=== PATIENT | female | born 1975 | race Two or more races ===

== ENCOUNTER 2017-01-07 23:45 | Emergency (ER) | payer OTHER ==
[2017-01-08 00:50] VITALS: BP 104/50; PULSE 90; TEMP 97.9; BMI 33.4
[2017-01-08] MEDS ORDERED: OXYCODONE/APAP 5/325MG COMBO TABLET PO ONE (01:29)
[2017-01-08] MEDS ORDERED: IBUPROFEN 600 MG TABLET (FP) PO ONE ×2 (01:29→01:43)
[2017-01-08] MEDS ORDERED: OXYCODONE/APAP 5/325MG COMBO TABLET ONE (01:43)
--- NOTE | 2017-01-08 02:04 | PDOC ---
History of Present Illness - General Chief Complaint: Injury Stated Complaint: INJURY Time Seen by Provider: 01/08/17 01:11 History Source: Patient Exam Limitations: No Limitations - History of Present Illness Initial Comments: 01/08/17 01:59 41yo Female patient presents to ED c/o right shoulder pain. Patient states 3 yrs ago she sprained her shoulder and has had trouble with shoulder every since. She states while reaching for her purse in the back seat of her car she heard grinding in the right shoulder, later on that day as she was exiting her car, she slipped lost her balance and banged her shoulder against her car while trying to break her fall. She denies any other complaints at this time. Occurred: reports: yesterday Severity: reports: moderate Pain Location: reports: upper extremity Method of Injury: Yes: fall Modifying Factors: improves with: cold therapy, pain medication Associated Symptoms (Fall): denies symptoms Past History - Travel Traveled outside of the country in the last 30 days: No Close contact w/someone who was outside of country & ill: No - Past Medical History Allergies/Adverse Reactions: Allergies Allergy/AdvReac Type Severity Reaction Status Date / Time No Known Allergies Allergy Verified 01/08/17 00:46 Home Medications: Ambulatory Orders Ibuprofen [Motrin -] 600 mg PO Q6H PRN #30 tablet 01/08/17 Oxycodone HCl/Acetaminophen [Percocet 5-325 mg Tablet] 1 tab PO Q6H PRN #20 tablet MDD 4 tabs 01/08/17 - Surgical History Abdominal Surgery: Yes Appendectomy: Yes - Psycho/Social/Smoking Cessation Hx Anxiety: No Suicidal Ideation: No Smoking History: Never smoked Have you smoked in the past 12 months: No Information on smoking cessation initiated: No Hx Alcohol Use: No Drug/Substance Use Hx: No Substance Use Type: None Trauma Specific PMHX - Complaint Specific PMHX Back Injury: Yes Neck Injury: No Hx Sacro Iliac Joint Dysfunction: No Review of Systems - Review of Systems Able to Perform ROS?: Yes Is the patient limited Vietnamese proficient: No Constitutional: No: Chills, Fever Respiratory: No: Cough, Shortness of Breath Cardiac (ROS): No: Chest Pain Musculoskeletal: Yes: Joint Pain All Other Systems: Reviewed and Negative *Physical Exam - Vital Signs Last Vital Signs Temp Pulse Resp BP Pulse Ox 97.9 F 90 14 104/50 99 01/08/17 00:47 01/08/17 00:47 01/08/17 00:47 01/08/17 00:47 01/08/17 00:47 - Physical Exam General Appearance: Yes: Nourished, Appropriately Dressed, Mild Distress. No: Apparent Distress, Moderate Distress, Severe Distress Respiratory/Chest: positive: Lungs Clear, Normal Breath Sounds. negative: Chest Tender, Respiratory Distress, Accessory Muscle Use, Labored Respiration, Rapid RR, Rhonchi, Stridor, Wheezing Cardiovascular: positive: Regular Rhythm, Regular Rate. negative: Edema, JVD, Murmur Gastrointestinal/Abdominal: positive: Normal Bowel Sounds, Soft. negative: Guarding Musculoskeletal: positive: Normal Inspection. negative: CVA Tenderness Extremity: positive: Normal Capillary Refill, Normal Inspection, Tender (Right shoulder.). negative: Normal Range of Motion (Rt shoulder) Integumentary: positive: Normal Color, Dry, Warm Neurologic: positive: technical research scientist II-XII NML intact, Fully Oriented, Alert, Normal Mood/ Affect, Normal Response, Motor Strength / ED Treatment Course - RADIOLOGY Radiology Studies Ordered: Category Date Time Status SHOULDER-RIGHT [RAD] Stat Radiology 01/08/17 01:29 Ordered - Medications Given in the ED: ED Medications Discontinued Medications Generic Name Dose Route Start Last Admin Trade Name Freq PRN Reason Stop Dose Admin Ibuprofen 600 mg 01/08/17 01:29 01/08/17 01:46 Motrin - PO 01/08/17 01:30 600 mg ONCE ONE Administration Oxycodone/Acetaminophen 1 combo 01/08/17 01:29 01/08/17 01:46 Percocet 5/325 - PO 01/08/17 01:30 1 combo ONCE ONE Administration *DC/Admit/Observation/Transfer Diagnosis at time of Disposition: Sprain of right shoulder Qualifiers: Encounter type: initial encounter Shoulder sprain type: unspecified sprain Qualified Code(s): S43.401A - Unspecified sprain of right shoulder joint, initial encounter - Discharge Dispostion Disposition: HOME Condition at time of disposition: Stable Admit: No - Prescriptions Prescriptions: Ibuprofen [Motrin -] 600 mg PO Q6H PRN #30 tablet PRN Reason: Mild Pain Oxycodone HCl/Acetaminophen [Percocet 5-325 mg Tablet] 1 tab PO Q6H PRN #20 tablet MDD 4 tabs PRN Reason: Severe Pain - Referrals Referrals: Juvenal Macario MD [Staff Physician] - - Patient Instructions Printed Discharge Instructions: DI for Shoulder Sprain Additional Instructions: FOLLOW UP WITH DR. MACARIO (ORTHOPEDIC). CALL TO SCHEDULE APPOINTMENT. TAKE MEDICATIONS PRESCRIBED. DO NOT DRIVE, DRINK ALCOHOL, OR OPERATE HEAVY MACHINERY WHILE TAKING PERCOCET. APPLY COLD COMPRESS TO AFFECTED AREA EVERY 4 HOURS ON AND OFF FOR 10-15 MINS. KEEP RIGHT ARM IN SLING DIRECTED. NO LIFTING >5 LBS. Print Language: ALBANIAN - Post Discharge Activity Work/School Note: Back to Work
== END 2017-01-08 02:26 | disposition home or self-care (01) ==
LOC: JER 23:45
DX: S43.401A Unspecified sprain of right shoulder joint, initial encounter (principal); V48.4XXA Person boarding or alighting a car injured in noncollision transport accident, initial encounter; Y92.488 Other paved roadways as the place of occurrence of the external cause; Y93.89 Activity, other specified; Y99.8 Other external cause status
CPT/HCPCS: 73030-TC-RT; 99281-25

== ENCOUNTER 2018-03-17 00:05 | Emergency (ER) | payer OTHER ==
--- NOTE | 2018-03-17 00:17 | PDOC ---
History of Present Illness - General Chief Complaint: Cold Symptoms Stated Complaint: THROAT PAIN Time Seen by Provider: 03/17/18 00:13 History Source: Patient Exam Limitations: No Limitations - History of Present Illness Initial Comments: 03/17/18 01:04 Best Contact:[phone] PCP:none Pmhx:Migraines/ Chronic LBP Pshx: 2013: MLD/lumbar, Lap appendectomy Allergies:NKDA LMP: 03/01/2018 43-year-old female presents to the emergency department complaining of a sore throat and left ear pain 3 days without fever, chills, nausea/vomiting, facial pains, headache, dizziness, lightheadedness, rhinorrhea, nasal congestion, neck stiffness/pain, back pains, chest pain, shortness of breath, abdominal pains, flank pains, urinary symptoms. Past History - Past Medical History Allergies/Adverse Reactions: Allergies Allergy/AdvReac Type Severity Reaction Status Date / Time No Known Allergies Allergy Verified 03/17/18 00:16 Home Medications: Ambulatory Orders Oxycodone HCl/Acetaminophen [Percocet 5-325 mg Tablet] 1 tab PO Q6H PRN #20 tablet MDD 4 tabs 01/08/17 Amoxicillin - [Amoxicillin 875mg Tablet -] 875 mg PO BID #14 tab 03/17/18 Nortriptyline HCl [Pamelor -] 25 mg PO HS 03/17/18 - Surgical History Abdominal Surgery: Yes Appendectomy: Yes - Suicide/Smoking/Psychosocial Hx Smoking History: Never smoked Have you smoked in the past 12 months: No Information on smoking cessation initiated: No Hx Alcohol Use: No Drug/Substance Use Hx: No Substance Use Type: None Review of Systems - Review of Systems Able to Perform ROS?: Yes Comments:: 03/17/18 01:06 CONSTITUTIONAL: Absent: fever, chills, diaphoresis, generalized weakness, malaise, loss of appetite HEENT: +throat pain, left ear pain Absent: rhinorrhea, nasal congestion, throat swelling, difficulty swallowing, mouth swelling, eye pain, visual Changes CARDIOVASCULAR: Absent: chest pain, loss of consciousness, palpitations, irregular heart rate, peripheral edema RESPIRATORY: Absent: cough, shortness of breath, dyspnea with exertion, orthopnea, wheezing, stridor, hemoptysis GASTROINTESTINAL: Absent: abdominal pain, abdominal distension, nausea, vomiting, diarrhea, constipation, melena, hematochezia GENITOURINARY: Absent: dysuria, frequency, urgency, hesitancy, hematuria, flank pain, genital pain MUSCULOSKELETAL: Absent: myalgia, arthralgia, joint swelling SKIN: Absent: rash, itching, pallor Is the patient limited Romansh proficient: No *Physical Exam - Vital Signs Last Vital Signs Temp Pulse Resp BP Pulse Ox 97.3 F L 92 H 18 119/86 100 03/17/18 00:15 03/17/18 00:15 03/17/18 00:15 03/17/18 00:15 03/17/18 00:15 - Physical Exam Comments: 03/17/18 01:07 GENERAL: Well developed, well nourished. Awake and alert. No acute distress. HEENT: +Left TM/erythema and bulging Normocephalic, atraumatic. PERRLA, EOMI. No conjunctival pallor. Sclera are non- icteric. Moist mucous membranes. Oropharynx is clear. NECK: Supple. Full ROM. No JVD. Carotid pulses 2+ and symmetric, without bruits. No thyromegaly. No lymphadenopathy. CARDIOVASCULAR: Regular rate and rhythm. No murmurs, rubs, or gallops. Distal pulses are 2+ and symmetric. PULMONARY: No evidence of respiratory distress. Lungs clear to auscultation bilaterally. No wheezing, rales or rhonchi. ABDOMINAL: Soft. Non-tender. Non-distended. No rebound or guarding. No organomegaly. Normoactive bowel sounds. MUSCULOSKELETAL Normal range of motion at all joints. No bony deformities or tenderness. No CVA tenderness. EXTREMITIES: No cyanosis. No clubbing. No edema. No calf tenderness. SKIN: Warm and dry. Normal capillary refill. No rashes. No jaundice. *DC/Admit/Observation/Transfer Diagnosis at time of Disposition: Pharyngitis Qualifiers: Pharyngitis/tonsillitis etiology: unspecified etiology Qualified Code(s): J02.9 - Acute pharyngitis, unspecified LOM (left otitis media) Qualifiers: Otitis media type: unspecified Qualified Code(s): H66.92 - Otitis media, unspecified, left ear - Discharge Dispostion Disposition: HOME Condition at time of disposition: Stable Admit: No - Prescriptions Prescriptions: Amoxicillin - [Amoxicillin 875mg Tablet -] 875 mg PO BID #14 tab - Referrals Referrals: Jeronimo Parsons MD [Staff Physician] - - Patient Instructions Printed Discharge Instructions: DI for Viral Pharyngitis, Middle Ear Infection Additional Instructions: Initial to follow-up with the ENT physician/Dr. Parsons Antibiotics until completion/amoxicillin Take Tylenol Motrin as needed for pain Increase fluids Return back to the ER for severe/persistent or worsening symptoms - Post Discharge Activity
[2018-03-17 00:23] VITALS: BP 119/86; PULSE 92; TEMP 97.3; BMI 32.0
[2018-03-17] MEDS ORDERED: AMOXICILLIN 500 MG CAPSULE (FP) PO ONE (01:29)
[2018-03-17] MEDS ORDERED: AMOXICILLIN 500 MG CAPSULE (FP) ONE (01:37)
== END 2018-03-17 01:40 | disposition home or self-care (01) ==
LOC: JER 00:05
DX: J02.9 Acute pharyngitis, unspecified (principal); H66.92 Otitis media, unspecified, left ear
CPT/HCPCS: 87070; 87430; 99281-25

== ENCOUNTER 2018-06-08 11:59 | Observation (INO) | payer OTHER ==
[2018-06-08 12:06] VITALS: BMI 32.5
--- NOTE | 2018-06-08 12:50 | PDOC ---
History of Present Illness - General Chief Complaint: Pain, Acute Stated Complaint: PAIN Time Seen by Provider: 06/08/18 12:45 History Source: Patient Exam Limitations: No Limitations - History of Present Illness Initial Comments: 06/08/18 13:09 Ms. Garcia is a 43 yo F with a hx of migraines and appendectomy (2012) who presents to the emergency department with epigastric and RLQ pain with radiation to right flank for the past 1.5 weeks. She states that the pain in the epigastric region is 10/10, constant and sharp that worsens with food with associated nausea and reflux. Her RLQ pain is 10/10 sharp constant pain with radiation to the right flank with relief when she eats. Concurrently, she has been vomiting throughout the 1.5 weeks with 2 vomiting events yesterday and 1x today (denies hematemesis). Denies aggravating factors for the RLQ pain. Denies the following: dysuria, hematuria, hx of nephrolithiasis, hx of cholelithiasis, SOB, chest pain, diarrhea, and fever. Endorses being sexually active with with LMP May 18. Pmhx: migraines Shx: 2012 appendectomy, 2010 vertebral disc fusion. Medications: None Allergies: None Social hx: Denies smoking, alcohol, and substance use. OBGYN: with 1 spontaneous . States currently not . Past History - Past Medical History Allergies/Adverse Reactions: Allergies Allergy/AdvReac Type Severity Reaction Status Date / Time No Known Allergies Allergy Verified 06/08/18 12:02 Home Medications: Ambulatory Orders Oxycodone HCl/Acetaminophen [Percocet 5-325 mg Tablet] 1 tab PO Q6H PRN #20 tablet MDD 4 tabs 01/08/17 COPD: No DVT: No Dementia: No Other medical history: MIGRANES - Surgical History Abdominal Surgery: Yes Appendectomy: Yes - Immunization History Immunization Up to Date: Yes - Suicide/Smoking/Psychosocial Hx Smoking History: Never smoked Have you smoked in the past 12 months: No Hx Alcohol Use: No Drug/Substance Use Hx: No Substance Use Type: None Review of Systems - Review of Systems Constitutional: No: Chills, Diaphoresis, Fever HEENTM: No: Recent change in vision, Ear Pain, Nose Pain, Throat Pain, Mouth Pain Respiratory: No: Cough, Shortness of Breath Cardiac (ROS): No: Chest Pain, Palpitations ABD/GI: Yes: Nausea, Vomiting. No: Constipated, Diarrhea, Rectal Bleeding, Tarry Stools : Yes: Flank Pain (right). No: Burning, Dysuria, Discharge, Hematuria, Incontinence Musculoskeletal: No: Back Pain, Joint Pain Integumentary: No: Rash Neurological: No: Headache Endocrine: No: Unexplained Weight Gain *Physical Exam - Vital Signs Last Vital Signs Temp Pulse Resp BP Pulse Ox 98.1 F 113 H 16 115/83 100 06/08/18 12:02 06/08/18 12:02 06/08/18 12:02 06/08/18 12:02 06/08/18 12:02 - Physical Exam General Appearance: Yes: Nourished, Appropriately Dressed HEENT: positive: TIA, Normal Voice Respiratory/Chest: positive: Lungs Clear, Normal Breath Sounds Cardiovascular: positive: Regular Rhythm, Regular Rate, S1, S2 Vascular Pulses: Dorsalis-Pedis (R): 3+, Doralis-Pedis (L): 3+ Gastrointestinal/Abdominal: positive: Normal Bowel Sounds, Tender (Tenderness to palpation in the RUQ, RLQ and epigastric region), Other (Positive mcburney, positive rosvings, and positive murphys) Lymphatic: negative: Adenopathy Musculoskeletal: positive: CVA Tenderness (R). negative: CVA Tenderness (L) Extremity: positive: Normal Capillary Refill, Normal Inspection Integumentary: positive: Normal Color, Dry, Warm Neurologic: positive: Fully Oriented, Alert ED Treatment Course - LABORATORY CBC & Chemistry Diagram: 06/08/18 13:42 06/08/18 13:37 Medical Decision Making - Medical Decision Making 06/08/18 17:44 Ms. Garcia is a 43 yo F with a hx of an appendectomy (2012) who presents with RLQ, RUQ, and epigastric pain with associated nausea and vomiting for the past 1.5 weeks. Ddx: Nephrolithiasis, pyelonephritis, cholelithiasis, choledocholithiasis, cholecystitis, pancreatitis, GERD, gastritis, ACS r/o, colitis, small bowel obstruction, diverticulitis, ovarian torsion, ovarian cyst, ectopic Initial vitals: Initial Vital Signs Temp Pulse Resp BP Pulse Ox 98.1 F 113 H 16 115/83 100 06/08/18 12:02 06/08/18 12:02 06/08/18 12:02 06/08/18 12:02 06/08/18 12:02 Workup: Laboratory Results - last 24 hr 06/08/18 06/08/18 06/08/18 13:37 13:42 13:42 WBC 8.8 RBC 5.12 Hgb 13.8 Hct 42.2 MCV 82.4 MCH 27.1 MCHC 32.8 RDW 14.9 Plt Count 286 MPV 9.1 Absolute Neuts (auto) 5.8 Neutrophils % 66.1 Lymphocytes % 24.3 Monocytes % 8.5 Eosinophils % 0.8 Basophils % 0.3 Nucleated RBC % 0 Sodium 137 Potassium 4.2 Chloride 100 Carbon Dioxide 32 Anion Gap 5 L BUN 14 Creatinine 0.9 Creat Clearance w eGFR > 60 Random Glucose 94 Calcium 9.7 Magnesium 2.2 Total Bilirubin 0.2 AST 23 ALT 30 Alkaline Phosphatase 122 H Total Protein 8.0 Albumin 3.9 Lipase 160 Serum , Qual Negative Urine Color Urine Appearance Urine pH Ur Specific [employer] Urine Protein Urine Glucose (UA) Urine Ketones Urine Blood Urine Nitrite Urine Bilirubin Urine Urobilinogen Ur Leukocyte Esterase Urine WBC (Auto) Urine RBC (Auto) Ur Epithelial Cells Urine Mucus Blood Type Antibody Screen 06/08/18 06/08/18 13:56 15:08 WBC RBC Hgb Hct MCV MCH MCHC RDW Plt Count MPV Absolute Neuts (auto) Neutrophils % Lymphocytes % Monocytes % Eosinophils % Basophils % Nucleated RBC % Sodium Potassium Chloride Carbon Dioxide Anion Gap BUN Creatinine Creat Clearance w eGFR Random Glucose Calcium Magnesium Total Bilirubin AST ALT Alkaline Phosphatase Total Protein Albumin Lipase Serum , Qual Urine Color Ltyellow Urine Appearance Slcloudy Urine pH 7.0 Ur Specific [employer] 1.014 Urine Protein Negative Urine Glucose (UA) Negative Urine Ketones Negative Urine Blood 1+ H Urine Nitrite Negative Urine Bilirubin Negative Urine Urobilinogen 2.0 H Ur Leukocyte Esterase Negative Urine WBC (Auto) None Urine RBC (Auto) None Ur Epithelial Cells Rare Urine Mucus Rare Blood Type O POSITIVE Antibody Screen Negative CT abdomen and pelvis with contrast: Impression: Right ovarian cyst otherwise essentially normal CT scan of the abdomen and pelvis with no evidence of acute patholoy per Dr. Warren Rogers. Re-evaluation: After 20 minutes s/p 4 mg IV morphine administration, pain was reduced from 10/ 10 to 8/10. This was evaluated at 6:05 pm. Her pain is irretractable and is unsafe to go home. Disposition is to observation for serial examinations. 06/08/18 18:13 *DC/Admit/Observation/Transfer Diagnosis at time of Disposition: Right ovarian cyst Abdominal pain Qualifiers: Abdominal location: generalized Qualified Code(s): R10.84 - Generalized abdominal pain - Discharge Dispostion Decision to Admit order: Yes - Referrals Referrals: Kaleb Sapp MD [Primary Care Provider] - - Patient Instructions - Post Discharge Activity
[2018-06-08] MEDS ORDERED: SODIUM CHLORIDE 1,000 ML IV STA ×2 (13:04→18:30)
[2018-06-08] MEDS ORDERED: ONDANSETRON 4 MG/2 ML VIAL IVPUSH ONE ×2 (13:05→18:28)
[2018-06-08] MEDS ORDERED: ACETAMINOPHEN 1000 MG/100 ML VIAL (NON FORMULARY) IVPB ONE (13:06)
[2018-06-08] MEDS ORDERED: ACETAMINOPHEN INJECTION 100 ML IVPB ONE (13:24)
[2018-06-08] MEDS ORDERED: ONDANSETRON 4 MG/2 ML VIAL ONE ×2 (13:24→18:37)
--- NOTE | 2018-06-08 13:47 | PDOC ---
Attending Attestation - Resident Resident Name: Jose Morris - ED Attending Attestation I have performed the following: I have examined & evaluated the patient, The case was reviewed & discussed with the resident, I agree w/resident's findings & plan - HPI HPI: 06/08/18 13:45 43-year-old female with history of appendectomy resents with progressive right upper quadrant pain. Patient has had intermittent symptoms for about 1 month, worse with eating and associated with nausea/vomiting. The symptoms are typically go away after a few hours, but over the last 3 days has had persistent epigastric/right-sided abdominal pain with inability to tolerate by mouth, no fevers or chills. Normal bowel movements, last was this morning. No urinary complaints. No EtOH or excessive NSAID use, no known history of cholelithiasis. - Physicial Exam PE: 06/08/18 13:46 Afebrile, heart rate improved after retching resolved No jaundice or pallor Abdomen is soft but distended, tender with guarding in the right upper quadrant , no rebound. Slight right CVA tenderness, no rash, bowel sounds are normal. - Medical Decision Making 06/08/18 13:46 43-year-old female with history of intermittent epigastric/right upper quadrant pain now with persistent pain and focal peritoneal findings in the right upper quadrant. Presentation seems most consistent with biliary colic/cholecystitis, rule out pancreatitis, less likely etiology. Labs, urinalysis EKG IV fluids, antiemetics, pain control Right upper quadrant ultrasound Reassess Heart Score/ECG Review #1 ECG reviewed & interpreted by me at: 14:04 General ECG Interpretation: Sinus Rhythm, Normal Rate (78), Normal Intervals ( qtc 420), No acute ischemic changes
[2018-06-08 13:52] LABS: BASO % 0.3 % (0-2.0); EOS % 0.8 % (0-4.5); HEMATOCRIT 42.2 % (32.4-45.2); HEMOGLOBIN 13.8 GM/dL (10.7-15.3); LYMPH % 24.3 % (8-40); MCH 27.1 pg (25.7-33.7); MCHC 32.8 g/dl (32.0-36.0); MEAN CELL VOLUME 82.4 fl (80-96); MEAN PLT VOLUME 9.1 fl (7.5-11.1); MONO % 8.5 % (3.8-10.2); NEUT % 66.1 % (42.8-82.8); PLATELET COUNT 286 K/MM3 (134-434); RBC 5.12 M/mm3 (3.60-5.2); RDW 14.9 % (11.6-15.6); WHITE BLOOD COUNT 8.8 K/mm3 (4.0-10.0)
[2018-06-08 14:15] LABS: ALBUMIN 3.9 g/dl (3.4-5.0); ALK PHOS 122 U/L (45-117); ANION GAP 5 (8-16); BILIRUBIN,TOTAL 0.2 mg/dL (0.2-1.0); BLOOD UREA NITROGEN 14 mg/dL (7-18); CALCIUM 9.7 mg/dL (8.5-10.1); CHLORIDE 100 mmol/L (98-107); CO2 32 mmol/L (21-32); CREATININE 0.9 mg/dL (0.55-1.02); GLUCOSE,RANDOM 94 mg/dL (74-106); LIPASE 160 U/L (73-393); MAGNESIUM 2.2 mg/dL (1.8-2.4); POTASSIUM 4.2 mmol/L (3.5-5.1); SGOT/AST 23 U/L (15-37); SGPT/ALT 30 U/L (12-78); SODIUM 137 mmol/L (136-145)
[2018-06-08 15:19] LABS: URINE APPEARANCE SLCLOUDY; URINE BILIRUBIN NEGATIVE (<2.0 mg/dL); URINE COLOR LTYELLOW; URINE GLUCOSE (UA) NEGATIVE (NEGATIVE); URINE KETONE NEGATIVE (NEGATIVE); URINE LEUK ESTERASE NEGATIVE (NEGATIVE); URINE NITRITE NEGATIVE (NEGATIVE); URINE PROTEIN NEGATIVE (NEGATIVE)
[2018-06-08] MEDS ORDERED: morphine CARPU-JECT 4 MG/1 ML DISP.SYRIN IVPUSH ONE (15:30)
[2018-06-08 15:35] LABS: EPI CELLS RARE /HPF (FEW); URINE MUCUS RARE
[2018-06-08] MEDS ORDERED: morphine SULFATE 4 MG/ML VIAL ONE (17:08)
--- NOTE | 2018-06-08 21:12 | HP ---
Admitting History and Physical - Primary Care Physician PCP: Demetria Del Rio - Admission History of Present Illness: Ms. Garcia is a 43 yo F with a hx of migraines and appendectomy (2012) who presents to the emergency department with epigastric and RLQ pain with radiation to right flank for the past 1.5 weeks. She states that the pain in the epigastric region is 10/10, constant and sharp that worsens with food with associated nausea and reflux. Her RLQ pain is 10/10 sharp constant pain with radiation to the right flank with relief when she eats. Concurrently, she has been vomiting throughout the 1.5 weeks with 2 vomiting events yesterday and 1x today (denies hematemesis). Denies aggravating factors for the RLQ pain. Denies the following: dysuria, hematuria, hx of nephrolithiasis, hx of cholelithiasis, SOB, chest pain, diarrhea, and fever. Endorses being sexually active with with LMP May 18. - Past Medical History ...LMP: 05/18/18 - Smoking History Smoking history: Never smoked Have you smoked in the past 12 months: No - Alcohol/Substance Use Hx Alcohol Use: No Home Medications - Allergies Allergies/Adverse Reactions: Allergies Allergy/AdvReac Type Severity Reaction Status Date / Time No Known Allergies Allergy Verified 06/08/18 12:02 - Home Medications Home Medications: Ambulatory Orders Oxycodone HCl/Acetaminophen [Percocet 5-325 mg Tablet] 1 tab PO Q6H PRN #20 tablet MDD 4 tabs 01/08/17 Physical Examination Vital Signs: Vital Signs Temperature 98.1 F 06/08/18 12:02 Pulse Rate 113 H 06/08/18 12:02 Respiratory Rate 16 06/08/18 12:02 Blood Pressure 115/83 06/08/18 12:02 O2 Sat by Pulse Oximetry (%) 100 06/08/18 12:02 Constitutional: Yes: No Distress HENT: Yes: Atraumatic Neck: Yes: Supple Cardiovascular: Yes: Regular Rate and Rhythm Respiratory: Yes: CTA Bilaterally Gastrointestinal: Yes: Normal Bowel Sounds, Tenderness (Ruq) Extremities: Yes: WNL Labs: CBC, BMP 06/08/18 13:42 06/08/18 13:37 Problem List - Problems (1) Abdominal pain Assessment/Plan: prn pain meds gi and delinquency counselor on board Code(s): R10.9 - UNSPECIFIED ABDOMINAL PAIN Qualifiers: Abdominal location: generalized Qualified Code(s): R10.84 - Generalized abdominal pain (2) Right ovarian cyst Assessment/Plan: delinquency counselor consult on pain meds Code(s): N83.201 - UNSPECIFIED OVARIAN CYST, RIGHT SIDE Assessment/Plan Laboratory Tests 06/08/18 06/08/18 06/08/18 13:37 13:42 13:42 WBC 8.8 RBC 5.12 Hgb 13.8 Hct 42.2 MCV 82.4 MCH 27.1 MCHC 32.8 RDW 14.9 Plt Count 286 MPV 9.1 Absolute Neuts (auto) 5.8 Neutrophils % 66.1 Lymphocytes % 24.3 Monocytes % 8.5 Eosinophils % 0.8 Basophils % 0.3 Nucleated RBC % 0 Sodium 137 Potassium 4.2 Chloride 100 Carbon Dioxide 32 Anion Gap 5 L BUN 14 Creatinine 0.9 Creat Clearance w eGFR > 60 Random Glucose 94 Calcium 9.7 Magnesium 2.2 Total Bilirubin 0.2 AST 23 ALT 30 Alkaline Phosphatase 122 H Total Protein 8.0 Albumin 3.9 Lipase 160 Serum , Qual Negative Urine Color Urine Appearance Urine pH Ur Specific [place] Urine Protein Urine Glucose (UA) Urine Ketones Urine Blood Urine Nitrite Urine Bilirubin Urine Urobilinogen Ur Leukocyte Esterase Urine WBC (Auto) Urine RBC (Auto) Ur Epithelial Cells Urine Mucus Blood Type Antibody Screen 06/08/18 06/08/18 06/08/18 13:56 15:08 17:20 WBC RBC Hgb Hct MCV MCH MCHC RDW Plt Count MPV Absolute Neuts (auto) Neutrophils % Lymphocytes % Monocytes % Eosinophils % Basophils % Nucleated RBC % Sodium Potassium Chloride Carbon Dioxide Anion Gap BUN Creatinine Creat Clearance w eGFR Random Glucose Calcium Magnesium Total Bilirubin AST ALT Alkaline Phosphatase Total Protein Albumin Lipase Serum , Qual Urine Color Ltyellow Urine Appearance Slcloudy Urine pH 7.0 Ur Specific [place] 1.014 Urine Protein Negative Urine Glucose (UA) Negative Urine Ketones Negative Urine Blood 1+ H Urine Nitrite Negative Urine Bilirubin Negative Urine Urobilinogen 2.0 H Ur Leukocyte Esterase Negative Urine WBC (Auto) None Urine RBC (Auto) None Ur Epithelial Cells Rare Urine Mucus Rare Blood Type O POSITIVE O POSITIVE Antibody Screen Negative Active Medications Generic Name Dose Route Start Last Admin Trade Name Freq PRN Reason Stop Dose Admin Morphine Sulfate 2 mg 06/08/18 21:16 06/10/18 12:09 Morphine Sulfate IVPUSH 2 mg Q4H PRN Administration PAIN LEVEL 4 - 6
[2018-06-08] MEDS: MORPHINE SULFATE 2 MG/ML VIAL IVPUSH PRN (23:34)
[2018-06-09] MEDS: MORPHINE SULFATE 2 MG/ML VIAL IVPUSH PRN ×4 (05:06→22:21)
[2018-06-09 07:01] LABS: BASO % 0.5 % (0-2.0); EOS % 1.8 % (0-4.5); HEMATOCRIT 35.4 % (32.4-45.2); HEMOGLOBIN 11.7 GM/dL (10.7-15.3); LYMPH % 31.3 % (8-40); MCH 27.3 pg (25.7-33.7); MEAN CELL VOLUME 82.9 fl (80-96); MEAN PLT VOLUME 9.2 fl (7.5-11.1); MONO % 8.5 % (3.8-10.2); NEUT % 57.9 % (42.8-82.8); PLATELET COUNT 231 K/MM3 (134-434); RBC 4.27 M/mm3 (3.60-5.2); RDW 14.4 % (11.6-15.6); WHITE BLOOD COUNT 9.7 K/mm3 (4.0-10.0)
[2018-06-09 07:12] LABS: CHLORIDE 106 mmol/L (98-107); POTASSIUM 4.2 mmol/L (3.5-5.1); SODIUM 141 mmol/L (136-145)
[2018-06-09 07:24] LABS: ALBUMIN 3.2 g/dl (3.4-5.0); ALK PHOS 80 U/L (45-117); ANION GAP 10 (8-16); BILIRUBIN,TOTAL 0.3 mg/dL (0.2-1.0); BLOOD UREA NITROGEN 11 mg/dL (7-18); CALCIUM 8.1 mg/dL (8.5-10.1); CO2 25 mmol/L (21-32); CREATININE 0.8 mg/dL (0.55-1.02); GLUCOSE,RANDOM 80 mg/dL (74-106); SGOT/AST 17 U/L (15-37); SGPT/ALT 22 U/L (12-78); TOT PROT 6.3 g/dl (6.4-8.2)
--- NOTE | 2018-06-09 13:56 | EKG ---
Test Reason : Blood Pressure : / mmHG Vent. Rate : 077 BPM Atrial Rate : 077 BPM P-R Int : 136 ms QRS Dur : 078 ms QT Int : 372 ms P-R-T Axes : 054 081 040 degrees QTc Int : 420 ms POOR DATA QUALITY, INTERPRETATION MAY BE ADVERSELY AFFECTED NORMAL SINUS RHYTHM NORMAL ECG NO PREVIOUS ECGS AVAILABLE Confirmed by Mack Knox MD ([id number]) on 06/09/2018 1:55:55 PM Referred By: Confirmed By:Mack Knox MD
--- NOTE | 2018-06-09 18:41 | PN ---
Progress Note, Physician History of Present Illness: still ahs nause pain better - Current Medication List Current Medications: Active Medications Morphine Sulfate (Morphine Sulfate) 2 mg IVPUSH Q4H PRN PRN Reason: PAIN LEVEL 4 - 6 Last Admin: 06/09/18 18:08 Dose: 2 mg - Objective Vital Signs: Vital Signs Temperature 98.7 F 06/09/18 18:00 Pulse Rate 80 06/09/18 18:00 Respiratory Rate 20 06/09/18 18:00 Blood Pressure 139/65 06/09/18 18:00 O2 Sat by Pulse Oximetry (%) 97 06/09/18 10:00 Constitutional: Yes: No Distress HENT: Yes: Atraumatic Neck: Yes: Supple Cardiovascular: Yes: Regular Rate and Rhythm Respiratory: Yes: CTA Bilaterally Gastrointestinal: Yes: Normal Bowel Sounds Extremities: Yes: WNL Edema: No Neurological: Yes: Alert, Oriented Labs: CBC, BMP 06/09/18 05:55 06/09/18 05:55 Problem List - Problems (1) Abdominal pain Assessment/Plan: prn pain meds prn zofran for nausea Code(s): R10.9 - UNSPECIFIED ABDOMINAL PAIN Qualifiers: Abdominal location: generalized Qualified Code(s): R10.84 - Generalized abdominal pain (2) Right ovarian cyst Assessment/Plan: termite technician consult Code(s): N83.201 - UNSPECIFIED OVARIAN CYST, RIGHT SIDE
--- NOTE | 2018-06-09 19:03 | CON.GI ---
Consult Consult Specialty:: GI: For Dr. Suarez Referred by:: Dr. Del Rio Reason for Consultation:: Abdominal pain - History of Present Illness Chief Complaint: Abdominal Pain History of Present Illness: 43 F admitted for evaluation of abdominal pain. She states that she was in her usual state of health up iuntil 1.5 weeks ago when she began experiencing abdominal pain. The description of her pain is upper abdomen right upper quadrant and right lower quadrant. The pain can get worse after meals There has been no associated nausea, vomiting, fevers/chills, food fear, diarrhea, rectal bleeding, change in bowel habits. she does have chronic reflux and describes having had EGD and colonoscopy in the past that were unrevealing. Pain persists and she still requires opiate analgesia. IV contrast CT scan of the abdomen and pelvis was unrevealing aside from a right ovarian cyst. It also revealed a contracted GB ? physiologic vs. chronic cholecystitis. 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 ...LMP: 05/18/18 ...: No - Past Surgical History Past Surgical History: Yes: Appendectomy (laparoscopic) Additional Surgical History: L-Spine surgery - Alcohol/Substance Use Hx Alcohol Use: No History of Substance Use: reports: None - Smoking History Smoking history: Never smoked Have you smoked in the past 12 months: No - Social History ADL: Independent Place of : Other ([place]) History of Recent Travel: Yes ([facility]: returned 05/24) Home Medications - Allergies Allergies/Adverse Reactions: Allergies Allergy/AdvReac Type Severity Reaction Status Date / Time No Known Allergies Allergy Verified 06/08/18 12:02 - Home Medications Home Medications: Ambulatory Orders Oxycodone HCl/Acetaminophen [Percocet 5-325 mg Tablet] 1 tab PO Q6H PRN #20 tablet MDD 4 tabs 01/08/17 Family Disease History - Family Disease History Family Disease History: Other: Father (: 76: respiratory infection), Mother (Alive: DM II, hyperlipidemia), Brother (5, healthy), Sister (2, healthy), Son ( 3, healthy), Daughter (1, healthy) Review of Systems - Review of Systems Constitutional: denies: Chills, Fever Cardiovascular: denies: Chest Pain Respiratory: denies: Cough, SOB Gastrointestinal: reports: Abdominal Pain. denies: Constipation, Diarrhea, Dysphagia, Indigestion, Melena, Rectal Bleeding, Vomiting, Vomiting Blood Genitourinary: denies: Flank Pain Physical Exam-GI Vital Signs: Vital Signs Temperature 98.7 F 06/09/18 18:00 Pulse Rate 80 06/09/18 18:00 Respiratory Rate 20 06/09/18 18:00 Blood Pressure 139/65 06/09/18 18:00 O2 Sat by Pulse Oximetry (%) 97 06/09/18 10:00 Constitutional: Yes: Calm Eyes: No: Sclera Icterus Cardiovascular: Yes: Regular Rate and Rhythm Respiratory: Yes: CTA Bilaterally Gastrointestinal Inspection: Yes: Scars (Healed trochar scars) ...Auscultate: Yes: Normoactive Bowel Sounds ...Palpate: Yes: Tenderness (TTP in the RLQ > RUQ and epigastrium. Negative leonard's sign) ...Percussion: No: Tympanitic Edema: No (No LE edema) Neurological: Yes: Alert Labs: CBC, BMP 06/09/18 05:55 06/09/18 05:55 Hepatic Panel Total Bilirubin 0.3 mg/dL (0.2-1.0) 06/09/18 05:55 AST 17 U/L (15-37) 06/09/18 05:55 ALT 22 U/L (12-78) 06/09/18 05:55 Alkaline Phosphatase 80 U/L (45-117) D 06/09/18 05:55 Albumin 3.2 g/dl (3.4-5.0) L 06/09/18 05:55 Problem List - Problems (1) Abdominal pain Assessment/Plan: Ms. Ignacio abdominal and pelvic pain is migratory in nature. It can be related to meals however is now predominantly RLQ in location Advise: Changed diet to clears Ordered HIDA scan given post prandial component of the abdominal pain, if unrevealing, would consider EGD If right ovarian cyst does not explain the RLQ pain (with patient being s/p cheolecystectomy) then repeat CT scan of the abdomen and [pelvis with PO contrast. Await account assistant evaluation Code(s): R10.9 - UNSPECIFIED ABDOMINAL PAIN Qualifiers: Abdominal location: generalized Qualified Code(s): R10.84 - Generalized abdominal pain
[2018-06-10 07:13] LABS: BASO % 0.4 % (0-2.0); EOS % 1.5 % (0-4.5); HEMATOCRIT 36.3 % (32.4-45.2); HEMOGLOBIN 12.2 GM/dL (10.7-15.3); LYMPH % 28.5 % (8-40); MCH 27.7 pg (25.7-33.7); MCHC 33.6 g/dl (32.0-36.0); MEAN CELL VOLUME 82.5 fl (80-96); MEAN PLT VOLUME 9.2 fl (7.5-11.1); MONO % 9.3 % (3.8-10.2); NEUT % 60.3 % (42.8-82.8); PLATELET COUNT 235 K/MM3 (134-434); RBC 4.39 M/mm3 (3.60-5.2); RDW 14.9 % (11.6-15.6); WHITE BLOOD COUNT 9.9 K/mm3 (4.0-10.0)
[2018-06-10 07:27] LABS: ALBUMIN 3.3 g/dl (3.4-5.0); BILIRUBIN,DIRECT < 0.2 mg/dL (0.0-0.2)
[2018-06-10 07:30] LABS: ALK PHOS 94 U/L (45-117); BILIRUBIN,TOTAL 0.1 mg/dL (0.2-1.0); SGOT/AST 20 U/L (15-37); SGPT/ALT 25 U/L (12-78); TOT PROT 6.7 g/dl (6.4-8.2)
[2018-06-10] MEDS: MORPHINE SULFATE 2 MG/ML VIAL IVPUSH PRN ×3 (07:31→21:12)
--- NOTE | 2018-06-10 15:25 | CON.OBG ---
Consult Consult Specialty:: APPLIANCE SALES ASSOCIATE Reason for Consultation:: Ovarian cyst - History of Present Illness Chief Complaint: Abdominal pain History of Present Illness: Ms. Garcia is a 43 yo F with a hx of migraines and appendectomy (2012) who presents to the emergency department with epigastric and RLQ pain with radiation to right flank for the past 1.5 weeks. APPLIANCE SALES ASSOCIATE consulted due to incidental finding of right ovarian cyst by Cat Scan. LMP 05/18/18 Previous h/o back surgery. 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 ...LMP: 05/18/18 ...: No ...: 5 ...Para: 4 - Past Surgical History Past Surgical History: Yes: Appendectomy (laparoscopic) Additional Surgical History: L-Spine surgery - Alcohol/Substance Use Hx Alcohol Use: No History of Substance Use: reports: None - Smoking History Smoking history: Never smoked Have you smoked in the past 12 months: No - Social History ADL: Independent History of Recent Travel: Yes ([facility]: returned 05/24) Home Medications - Allergies Allergies/Adverse Reactions: Allergies Allergy/AdvReac Type Severity Reaction Status Date / Time No Known Allergies Allergy Verified 06/08/18 12:02 - Home Medications Home Medications: Ambulatory Orders Oxycodone HCl/Acetaminophen [Percocet 5-325 mg Tablet] 1 tab PO Q6H PRN #20 tablet MDD 4 tabs 01/08/17 Family Disease History - Family Disease History Family History: Unremarkable Family Disease History: Other: Father (: 76: respiratory infection), Mother (Alive: DM II, hyperlipidemia), Brother (5, healthy), Sister (2, healthy), Son ( 3, healthy), Daughter (1, healthy) Review of Systems - Review of Systems HENT: reports: Other (Headache) Neck: reports: No Symptoms Cardiovascular: reports: No Symptoms Respiratory: reports: No Symptoms Gastrointestinal: reports: No Symptoms Genitourinary: reports: Other (Vaginal discharge) Breasts: reports: No Symptoms Reported Musculoskeletal: reports: No Symptoms Integumentary: reports: No Symptoms Neurological: reports: No Symptoms Endocrine: reports: No Symptoms Hematology/Lymphatic: reports: No Symptoms Psychiatric: reports: No Symptoms Pain Intensity: 6 Physical Exam-APPLIANCE SALES ASSOCIATE Vital Signs: Vital Signs Temperature 97.7 F 06/10/18 14:48 Pulse Rate 76 06/10/18 14:48 Respiratory Rate 20 06/10/18 14:48 Blood Pressure 99/56 06/10/18 14:48 O2 Sat by Pulse Oximetry (%) 97 06/10/18 02:00 Constitutional: Yes: Well Nourished Eyes: Yes: Conjunctiva Clear HENT: Yes: Atraumatic Neck: Yes: Supple Cardiovascular: Yes: Regular Rate and Rhythm Respiratory: Yes: Regular Gastrointestinal: Yes: Normal Bowel Sounds ...Rectal Exam: Yes: WNL Renal/: Yes: CVA Tenderness - Right External Genitalia: Yes: Normal Cervix: Yes: Normal Uterus: Yes: Normal Musculoskeletal: Yes: WNL Extremities: Yes: WNL Neurological: Yes: Alert, Oriented ...Motor Strength: WNL Psychiatric: Yes: Alert, Oriented Labs: CBC, BMP 06/10/18 06:00 06/09/18 05:55 Assessment/Plan Abdominal pain Ovarian cyst F/U Transvaginal sonogram F/U CA125
[2018-06-10] MEDS ORDERED: ONDANSETRON 4 MG/2 ML VIAL IVPUSH ONE (16:15)
--- NOTE | 2018-06-10 16:52 | PN ---
Progress Note, Physician History of Present Illness: still ahs nause pain better - Current Medication List Current Medications: Active Medications Morphine Sulfate (Morphine Sulfate) 2 mg IVPUSH Q4H PRN PRN Reason: PAIN LEVEL 4 - 6 Last Admin: 06/10/18 12:09 Dose: 2 mg - Objective Vital Signs: Vital Signs Temperature 97.7 F 06/10/18 14:48 Pulse Rate 76 06/10/18 14:48 Respiratory Rate 20 06/10/18 14:48 Blood Pressure 99/56 06/10/18 14:48 O2 Sat by Pulse Oximetry (%) 97 06/10/18 02:00 Constitutional: Yes: No Distress HENT: Yes: Atraumatic Neck: Yes: Supple Cardiovascular: Yes: Regular Rate and Rhythm Respiratory: Yes: CTA Bilaterally Gastrointestinal: Yes: Normal Bowel Sounds, Tenderness (rlq) Extremities: Yes: WNL Neurological: Yes: Alert, Oriented Labs: CBC, BMP 06/10/18 06:00 06/09/18 05:55 Problem List - Problems (1) Abdominal pain Assessment/Plan: prn pain meds prn zofran for nausea start ivf for low bp Code(s): R10.9 - UNSPECIFIED ABDOMINAL PAIN Qualifiers: Abdominal location: generalized Qualified Code(s): R10.84 - Generalized abdominal pain (2) Right ovarian cyst Assessment/Plan: rotary shear operator consult Code(s): N83.201 - UNSPECIFIED OVARIAN CYST, RIGHT SIDE
[2018-06-10] MEDS ORDERED: ONDANSETRON 4 MG/2 ML VIAL IVPUSH PRN (17:06)
[2018-06-10] MEDS: SODIUM CHLORIDE 1,000 ML IV SCH (17:17)
[2018-06-11] MEDS: SODIUM CHLORIDE 1,000 ML IV SCH ×3 (03:00→20:00)
[2018-06-11] MEDS: MORPHINE SULFATE 2 MG/ML VIAL IVPUSH PRN ×2 (15:13→21:50)
--- NOTE | 2018-06-11 17:33 | PN ---
Progress Note, Physician - Current Medication List Current Medications: Active Medications Sodium Chloride (Normal Saline -) 1,000 mls @ 100 mls/hr IV ASDIR ADIEL Last Admin: 06/11/18 13:09 Dose: 100 mls/hr Morphine Sulfate (Morphine Sulfate) 2 mg IVPUSH Q4H PRN PRN Reason: PAIN LEVEL 4 - 6 Last Admin: 06/11/18 15:13 Dose: 2 mg Ondansetron HCl (Zofran Injection) 4 mg IVPUSH Q6H PRN PRN Reason: NAUSEA AND/OR VOMITING - Objective Vital Signs: Vital Signs Temperature 98.0 F 06/11/18 14:44 Pulse Rate 79 06/11/18 14:44 Respiratory Rate 20 06/11/18 14:44 Blood Pressure 118/72 06/11/18 14:44 O2 Sat by Pulse Oximetry (%) 98 06/11/18 10:00 Constitutional: Yes: No Distress HENT: Yes: Atraumatic Neck: Yes: Supple Cardiovascular: Yes: Regular Rate and Rhythm Respiratory: Yes: CTA Bilaterally Gastrointestinal: Yes: Normal Bowel Sounds Extremities: Yes: WNL Labs: CBC, BMP 06/10/18 06:00 06/09/18 05:55 Problem List - Problems (1) Abdominal pain Assessment/Plan: prn pain meds prn zofran for nausea regular Code(s): R10.9 - UNSPECIFIED ABDOMINAL PAIN Qualifiers: Abdominal location: generalized Qualified Code(s): R10.84 - Generalized abdominal pain (2) Right ovarian cyst Assessment/Plan: microsoft solutions architect consult.....done Code(s): N83.201 - UNSPECIFIED OVARIAN CYST, RIGHT SIDE
[2018-06-12] MEDS: SODIUM CHLORIDE 1,000 ML IV SCH ×2 (05:53→16:24)
[2018-06-12] MEDS: MORPHINE SULFATE 2 MG/ML VIAL IVPUSH PRN ×2 (08:26→16:26)
--- NOTE | 2018-06-12 13:54 | PN ---
Progress Note, Physician History of Present Illness: c/o episodic, mild RLQ pain. No BMs since 06/08. +flatus, non-distended, w/o mass abdomen. Adulating. NAD. Wants to eat. - Current Medication List Current Medications: Active Medications Sodium Chloride (Normal Saline -) 1,000 mls @ 100 mls/hr IV ASDIR ADIEL Last Admin: 06/12/18 05:53 Dose: 100 mls/hr Morphine Sulfate (Morphine Sulfate) 2 mg IVPUSH Q4H PRN PRN Reason: PAIN LEVEL 4 - 6 Last Admin: 06/12/18 08:26 Dose: 2 mg Ondansetron HCl (Zofran Injection) 4 mg IVPUSH Q6H PRN PRN Reason: NAUSEA AND/OR VOMITING - Objective Vital Signs: Vital Signs Temperature 98.5 F 06/12/18 13:08 Pulse Rate 84 06/12/18 13:08 Respiratory Rate 18 06/12/18 13:08 Blood Pressure 106/61 06/12/18 13:08 O2 Sat by Pulse Oximetry (%) 99 06/12/18 10:00 Constitutional: Yes: Well Nourished, No Distress, Calm Eyes: Yes: Conjunctiva Clear HENT: Yes: Atraumatic Neck: Yes: Supple Cardiovascular: Yes: Regular Rate and Rhythm Respiratory: Yes: Regular Gastrointestinal: Yes: Normal Bowel Sounds, Soft. No: Ascites, Distention, Melena, Rectal Bleeding, Tenderness, Tenderness, Epigastrium, Tenderness, Rebound, Vomiting Neurological: Yes: Alert, Oriented Labs: CBC, BMP 06/10/18 06:00 06/09/18 05:55 Laboratory Last Values WBC 9.9 K/mm3 (4.0-10.0) 06/10/18 06:00 RBC 4.39 M/mm3 (3.60-5.2) 06/10/18 06:00 Hgb 12.2 GM/dL (10.7-15.3) 06/10/18 06:00 Hct 36.3 % (32.4-45.2) 06/10/18 06:00 MCV 82.5 fl (80-96) 06/10/18 06:00 MCH 27.7 pg (25.7-33.7) 06/10/18 06:00 MCHC 33.6 g/dl (32.0-36.0) 06/10/18 06:00 RDW 14.9 % (11.6-15.6) 06/10/18 06:00 Plt Count 235 K/MM3 (134-434) 06/10/18 06:00 MPV 9.2 fl (7.5-11.1) 06/10/18 06:00 Absolute Neuts (auto) 6.0 # 06/10/18 06:00 Neutrophils % 60.3 % (42.8-82.8) 06/10/18 06:00 Lymphocytes % 28.5 % (8-40) 06/10/18 06:00 Monocytes % 9.3 % (3.8-10.2) 06/10/18 06:00 Eosinophils % 1.5 % (0-4.5) 06/10/18 06:00 Basophils % 0.4 % (0-2.0) 06/10/18 06:00 Nucleated RBC % 0 % (0-0) 06/10/18 06:00 Sodium 141 mmol/L (136-145) 06/09/18 05:55 Potassium 4.2 mmol/L (3.5-5.1) 06/09/18 05:55 Chloride 106 mmol/L (98-107) 06/09/18 05:55 Carbon Dioxide 25 mmol/L (21-32) 06/09/18 05:55 Anion Gap 10 (8-16) 06/09/18 05:55 BUN 11 mg/dL (7-18) 06/09/18 05:55 Creatinine 0.8 mg/dL (0.55-1.02) 06/09/18 05:55 Creat Clearance w eGFR > 60 (>60) 06/09/18 05:55 Random Glucose 80 mg/dL (74-106) 06/09/18 05:55 Calcium 8.1 mg/dL (8.5-10.1) L 06/09/18 05:55 Magnesium 2.2 mg/dL (1.8-2.4) 06/08/18 13:37 Total Bilirubin 0.1 mg/dL (0.2-1.0) L 06/10/18 06:00 Direct Bilirubin < 0.2 mg/dL (0.0-0.2) 06/10/18 06:00 AST 20 U/L (15-37) 06/10/18 06:00 ALT 25 U/L (12-78) 06/10/18 06:00 Alkaline Phosphatase 94 U/L (45-117) D 06/10/18 06:00 Total Protein 6.7 g/dl (6.4-8.2) 06/10/18 06:00 Albumin 3.3 g/dl (3.4-5.0) L 06/10/18 06:00 Lipase 160 U/L (73-393) 06/08/18 13:37 CA 125 Antigen 10.3 U/mL (0.0-38.1) 06/11/18 06:30 Serum , Qual Negative 06/08/18 13:42 Urine Color Ltyellow 06/08/18 15:08 Urine Appearance Slcloudy 06/08/18 15:08 Urine pH 7.0 (5.0-8.0) 06/08/18 15:08 Ur Specific [place] 1.014 (1.001-1.035) 06/08/18 15:08 Urine Protein Negative (NEGATIVE) 06/08/18 15:08 Urine Glucose (UA) Negative (NEGATIVE) 06/08/18 15:08 Urine Ketones Negative (NEGATIVE) 06/08/18 15:08 Urine Blood 1+ (NEGATIVE) H 06/08/18 15:08 Urine Nitrite Negative (NEGATIVE) 06/08/18 15:08 Urine Bilirubin Negative (<2.0 mg/dL) 06/08/18 15:08 Urine Urobilinogen 2.0 mg/dL (0.2-1.0) H 06/08/18 15:08 Ur Leukocyte Esterase Negative (NEGATIVE) 06/08/18 15:08 Urine WBC (Auto) None /hpf (3-5) 06/08/18 15:08 Urine RBC (Auto) None /hpf (0-3) 06/08/18 15:08 Ur Epithelial Cells Rare /HPF (FEW) 06/08/18 15:08 Urine Mucus Rare 06/08/18 15:08 Blood Type O POSITIVE 06/08/18 17:20 Antibody Screen Negative 06/08/18 13:56 Laboratory Last Values WBC 9.9 K/mm3 (4.0-10.0) 06/10/18 06:00 RBC 4.39 M/mm3 (3.60-5.2) 06/10/18 06:00 Hgb 12.2 GM/dL (10.7-15.3) 06/10/18 06:00 Hct 36.3 % (32.4-45.2) 06/10/18 06:00 MCV 82.5 fl (80-96) 06/10/18 06:00 MCH 27.7 pg (25.7-33.7) 06/10/18 06:00 MCHC 33.6 g/dl (32.0-36.0) 06/10/18 06:00 RDW 14.9 % (11.6-15.6) 06/10/18 06:00 Plt Count 235 K/MM3 (134-434) 06/10/18 06:00 MPV 9.2 fl (7.5-11.1) 06/10/18 06:00 Absolute Neuts (auto) 6.0 # 06/10/18 06:00 Neutrophils % 60.3 % (42.8-82.8) 06/10/18 06:00 Lymphocytes % 28.5 % (8-40) 06/10/18 06:00 Monocytes % 9.3 % (3.8-10.2) 06/10/18 06:00 Eosinophils % 1.5 % (0-4.5) 06/10/18 06:00 Basophils % 0.4 % (0-2.0) 06/10/18 06:00 Nucleated RBC % 0 % (0-0) 06/10/18 06:00 Sodium 141 mmol/L (136-145) 06/09/18 05:55 Potassium 4.2 mmol/L (3.5-5.1) 06/09/18 05:55 Chloride 106 mmol/L (98-107) 06/09/18 05:55 Carbon Dioxide 25 mmol/L (21-32) 06/09/18 05:55 Anion Gap 10 (8-16) 06/09/18 05:55 BUN 11 mg/dL (7-18) 06/09/18 05:55 Creatinine 0.8 mg/dL (0.55-1.02) 06/09/18 05:55 Creat Clearance w eGFR > 60 (>60) 06/09/18 05:55 Random Glucose 80 mg/dL (74-106) 06/09/18 05:55 Calcium 8.1 mg/dL (8.5-10.1) L 06/09/18 05:55 Magnesium 2.2 mg/dL (1.8-2.4) 06/08/18 13:37 Total Bilirubin 0.1 mg/dL (0.2-1.0) L 06/10/18 06:00 Direct Bilirubin < 0.2 mg/dL (0.0-0.2) 06/10/18 06:00 AST 20 U/L (15-37) 06/10/18 06:00 ALT 25 U/L (12-78) 06/10/18 06:00 Alkaline Phosphatase 94 U/L (45-117) D 06/10/18 06:00 Total Protein 6.7 g/dl (6.4-8.2) 06/10/18 06:00 Albumin 3.3 g/dl (3.4-5.0) L 06/10/18 06:00 Lipase 160 U/L (73-393) 06/08/18 13:37 CA 125 Antigen 10.3 U/mL (0.0-38.1) 06/11/18 06:30 Serum , Qual Negative 06/08/18 13:42 Urine Color Ltyellow 06/08/18 15:08 Urine Appearance Slcloudy 06/08/18 15:08 Urine pH 7.0 (5.0-8.0) 06/08/18 15:08 Ur Specific [place] 1.014 (1.001-1.035) 06/08/18 15:08 Urine Protein Negative (NEGATIVE) 06/08/18 15:08 Urine Glucose (UA) Negative (NEGATIVE) 06/08/18 15:08 Urine Ketones Negative (NEGATIVE) 06/08/18 15:08 Urine Blood 1+ (NEGATIVE) H 06/08/18 15:08 Urine Nitrite Negative (NEGATIVE) 06/08/18 15:08 Urine Bilirubin Negative (<2.0 mg/dL) 06/08/18 15:08 Urine Urobilinogen 2.0 mg/dL (0.2-1.0) H 06/08/18 15:08 Ur Leukocyte Esterase Negative (NEGATIVE) 06/08/18 15:08 Urine WBC (Auto) None /hpf (3-5) 06/08/18 15:08 Urine RBC (Auto) None /hpf (0-3) 06/08/18 15:08 Ur Epithelial Cells Rare /HPF (FEW) 06/08/18 15:08 Urine Mucus Rare 06/08/18 15:08 Blood Type O POSITIVE 06/08/18 17:20 Antibody Screen Negative 06/08/18 13:56 Problem List - Problems (1) Abdominal pain Code(s): R10.9 - UNSPECIFIED ABDOMINAL PAIN Qualifiers: Abdominal location: generalized Qualified Code(s): R10.84 - Generalized abdominal pain Assessment/Plan The etiology of the abdominal pain is unclear. ?functional. Tolerating regular diet. Reports no BMs for 4 days (not typical for her). Labs and imaging unrevealing. Trial of Miralax tid. Regular diet and if tolerated, OK to d/c from GI perspective with follow-up as OP in 1 week. Discussed with the patient.
[2018-06-12] MEDS ORDERED: POLYETHYLENE GLYCOL 3350 119 GM BTL PO SCH (14:00)
[2018-06-12 18:15] VITALS: BP 113/73; PULSE 80; TEMP 98.3
--- NOTE | 2018-06-12 19:28 | DS ---
Physical Examination Vital Signs: Vital Signs Temperature 98.3 F 06/12/18 18:13 Pulse Rate 80 06/12/18 18:13 Respiratory Rate 18 06/12/18 18:13 Blood Pressure 113/73 06/12/18 18:13 O2 Sat by Pulse Oximetry (%) 99 06/12/18 18:00 Labs: CBC, BMP 06/10/18 06:00 06/09/18 05:55 Discharge Summary Reason For Visit: ABDOMINAL PAIN; CYST OF RIGHT OVARY Current Active Problems Abdominal pain (Acute) Right ovarian cyst (Acute) - Instructions Referrals: Kaleb Sapp MD [Primary Care Provider] - - Home Medications Comprehensive Discharge Medication List: Ambulatory Orders Oxycodone HCl/Acetaminophen [Percocet 5-325 mg Tablet] 1 tab PO Q6H PRN #20 tablet MDD 4 tabs 01/08/17
--- NOTE | 2018-06-12 19:28 | PN ---
Progress Note, Physician - Current Medication List Current Medications: Active Medications Sodium Chloride (Normal Saline -) 1,000 mls @ 100 mls/hr IV ASDIR ADIEL Last Admin: 06/12/18 16:24 Dose: 100 mls/hr Morphine Sulfate (Morphine Sulfate) 2 mg IVPUSH Q4H PRN PRN Reason: PAIN LEVEL 4 - 6 Last Admin: 06/12/18 16:26 Dose: 2 mg Ondansetron HCl (Zofran Injection) 4 mg IVPUSH Q6H PRN PRN Reason: NAUSEA AND/OR VOMITING Polyethylene Glycol (Miralax (For Daily Use) -) 17 gm PO TID [facility] Stop: 06/15/18 14:00 Last Admin: 06/12/18 14:50 Dose: 17 gm - Objective Vital Signs: Vital Signs Temperature 98.3 F 06/12/18 18:13 Pulse Rate 80 06/12/18 18:13 Respiratory Rate 18 06/12/18 18:13 Blood Pressure 113/73 06/12/18 18:13 O2 Sat by Pulse Oximetry (%) 99 06/12/18 18:00 Labs: CBC, BMP 06/10/18 06:00 06/09/18 05:55 Problem List - Problems (1) Abdominal pain Code(s): R10.9 - UNSPECIFIED ABDOMINAL PAIN Qualifiers: Abdominal location: generalized Qualified Code(s): R10.84 - Generalized abdominal pain (2) Right ovarian cyst Code(s): N83.201 - UNSPECIFIED OVARIAN CYST, RIGHT SIDE
== END 2018-06-12 21:09 | disposition home or self-care (01) ==
LOC: JER 11:59 → JERBED 18:46 → J5S 21:43
PROVIDERS: ADMIT Internal Medicine; ATTEND Internal Medicine
PROC: 3E033NZ Introduction of Analgesics, Hypnotics, Sedatives into Peripheral Vein, Percutaneous Approach (ICD-10-PCS; principal; 2018-06-08)
PROC: 3E033GC Introduction of Other Therapeutic Substance into Peripheral Vein, Percutaneous Approach (ICD-10-PCS; 2018-06-08)
PROC: 3E0337Z Introduction of Electrolytic and Water Balance Substance into Peripheral Vein, Percutaneous Approach (ICD-10-PCS; 2018-06-08)
DX: R10.84 Generalized abdominal pain (principal); N83.201 Unspecified ovarian cyst, right side
CPT/HCPCS: 36415; 74177-TC; 76705-TC; 76830-TC; 78226-TC; 80053; 80076; 81003; 81015; 83690; 83735; 84703; 85025; 86304; 86850; 86900; 86901; 87086; 93005; 93010; 96361; 96374; 96375; 96376; 99283-25; A9537; G0378; J0131; J7030

== ENCOUNTER 2018-06-22 15:05 | Emergency (ER) | payer OTHER ==
[2018-06-22 15:20] VITALS: TEMP 97.9; BMI 30.9
--- NOTE | 2018-06-22 15:27 | PDOC ---
Rapid Medical Evaluation Chief Complaint: Pain Time Seen by Provider: 06/22/18 15:23 Medical Evaluation: Allergies Allergy/AdvReac Type Severity Reaction Status Date / Time No Known Allergies Allergy Verified 06/22/18 15:17 Vital Signs Temp Pulse Resp BP Pulse Ox 97.9 F 99 H 18 118/83 99 06/22/18 15:17 06/22/18 15:17 06/22/18 15:17 06/22/18 15:17 06/22/18 15:17 06/22/18 15:23 complain: Patient with h/o gastritis present with complains of epigastric and RUQ pain which has been persistent for a week and was admitted over a week ago and work-up showed no acute findings but report symptoms never resolved and now with diarrhea and nausea. no vomiting. exam: tenderness to epigastric and RUQ w/o guarding. no rebound tenderness order: none f/u patient will proceed to ED for further evaluation Discharge Disposition - Diagnosis Abdominal pain Qualifiers: Abdominal location: right upper quadrant Qualified Code(s): R10.11 - Right upper quadrant pain - Referrals - Patient Instructions - Post Discharge Activity
--- NOTE | 2018-06-22 19:21 | PDOC ---
History of Present Illness - General Chief Complaint: Pain Stated Complaint: REVISIT/ PAIN, UNABLE TO EAT Time Seen by Provider: 06/22/18 15:23 History Source: Patient Exam Limitations: No Limitations - History of Present Illness Travel History: No Initial Comments: 06/22/18 20:48 Best Contact: PCP:Dr. Bina Sapp Pmhx: Migraines Pshx: 2011: Jeronimo lumbar discectomy, 2013 lap appendectomy, 2017: Bilateral tubal ligation Allergies: NO KNOWN DRUG ALLERGIES FH:0 Social Hx: Cigarettes/ 0 Alcohol/ 0 Drugs/0 LMP: 06/15/2018 06/22/18 20:51 43-year-old female presents to the ER complaining of epigastric and persistent right upper quadrant abdominal discomfort 3 weeks. Pain is described as 5/10 dull nonradiating intermittent discomfort without fever, chills, nausea/vomiting , dizziness, lightheadedness, headache, back pains, chest pain, shortness of breath, flank pains, urinary symptoms: Frequency/urgency/hesitancy, hematuria. Pain is exacerbated after eating and alleviated at rest. Patient was seen in the emergency department on and had a limited ultrasound which shows questionable dyskinesia to the gallbladder. Patient also had a CT of the abdomen and pelvis with by mouth and IV contrast which shows right-sided ovarian cysts but states the gallbladder was clear. Patient was consulted while in the emergency department by GI who cleared her for discharge. Patient was admitted for the hospital for pain control and was ultimately discharged on June 10. Patient has an appointment with /GI tomorrow. Past History - Past Medical History Allergies/Adverse Reactions: Allergies Allergy/AdvReac Type Severity Reaction Status Date / Time No Known Allergies Allergy Verified 06/22/18 15:17 Home Medications: Ambulatory Orders Oxycodone HCl/Acetaminophen [Percocet 5-325 mg Tablet] 1 tab PO Q6H PRN #20 tablet MDD 4 tabs 01/08/17 Polyethylene Glycol 3350 [Miralax 119 gm Btl -] 17 gm PO TID bottle 06/12/18 Anemia: No Asthma: No Cancer: No Cardiac Disorders: No CVA: No COPD: No CHF: No DVT: No Dementia: No Diabetes: No GI Disorders: No Disorders: No HTN: No Hypercholesterolemia: No Liver Disease: No Seizures: Yes (about 6-7 years ago) Thyroid Disease: No Other medical history: migraines - Surgical History Abdominal Surgery: Yes Appendectomy: Yes Cardiac Surgery: No Cholecystectomy: No Lung Surgery: No Neurologic Surgery: No Orthopedic Surgery: Yes (dislocated disc) - Immunization History Immunization Up to Date: Yes - Suicide/Smoking/Psychosocial Hx Smoking History: Never smoked Have you smoked in the past 12 months: No Hx Alcohol Use: No Drug/Substance Use Hx: No Substance Use Type: None Hx Substance Use Treatment: No Review of Systems - Review of Systems Able to Perform ROS?: Yes Comments:: 06/22/18 20:55 CONSTITUTIONAL: Absent: fever, chills, diaphoresis, generalized weakness, malaise, loss of appetite HEENT: Absent: rhinorrhea, nasal congestion, throat pain, throat swelling, difficulty swallowing, mouth swelling, ear pain, eye pain, visual Changes CARDIOVASCULAR: Absent: chest pain, loss of consciousness, palpitations, irregular heart rate, peripheral edema RESPIRATORY: Absent: cough, shortness of breath, dyspnea with exertion, orthopnea, wheezing, stridor, hemoptysis GASTROINTESTINAL: +RUQ pain/Epigastric Absent: abdominal distension, nausea, vomiting, diarrhea, constipation, melena , hematochezia GENITOURINARY: Absent: dysuria, frequency, urgency, hesitancy, hematuria, flank pain, genital pain MUSCULOSKELETAL: Absent: myalgia, arthralgia, joint swelling SKIN: Absent: rash, itching, pallor HEMATOLOGIC/IMMUNOLOGIC: Absent: easy bleeding, easy bruising, lymphadenopathy, frequent infections ENDOCRINE: Absent: unexplained weight gain, unexplained weight loss, heat intolerance, cold intolerance NEUROLOGIC: Absent: headache, focal weakness or paresthesias, dizziness, unsteady gait, seizure, mental status changes, bladder or bowel incontinence PSYCHIATRIC: Absent: anxiety, depression, suicidal or homicidal ideation, hallucinations. 06/22/18 21:00 Is the patient limited Luxembourgish proficient: No *Physical Exam - Vital Signs Last Vital Signs Temp Pulse Resp BP Pulse Ox 97.9 F 99 H 18 118/83 99 06/22/18 15:17 06/22/18 15:17 06/22/18 15:17 06/22/18 15:17 06/22/18 15:17 - Physical Exam Comments: 06/22/18 20:55 GENERAL: Well developed, well nourished. Awake and alert. No acute distress. HEENT: Normocephalic, atraumatic. PERRLA, EOMI. No conjunctival pallor. Sclera are non- icteric. Moist mucous membranes. Oropharynx is clear. NECK: Supple. Full ROM. No JVD. Carotid pulses 2+ and symmetric, without bruits. No thyromegaly. No lymphadenopathy. CARDIOVASCULAR: Regular rate and rhythm. No murmurs, rubs, or gallops. Distal pulses are 2+ and symmetric. PULMONARY: No evidence of respiratory distress. Lungs clear to auscultation bilaterally. No wheezing, rales or rhonchi. ABDOMINAL: +RUQ pain on palp/epigastric pain Soft. Non-distended. No rebound or guarding. No organomegaly. Normoactive bowel sounds. MUSCULOSKELETAL Normal range of motion at all joints. No bony deformities or tenderness. No CVA tenderness. EXTREMITIES: No cyanosis. No clubbing. No edema. No calf tenderness. SKIN: Warm and dry. Normal capillary refill. No rashes. No jaundice. NEUROLOGICAL: Alert, awake, appropriate. Cranial nerves 2-12 intact. No deficits to light touch and temperature in face, upper extremities and lower extremities. No motor deficits in the in face, upper extremities and lower extremities. Normoreflexic in the upper and lower extremities. Normal speech. Toes are down- going bilaterally. Gait is normal without ataxia. PSYCHIATRIC: Cooperative. Good eye contact. Appropriate mood and affect. 06/22/18 21:00 ED Treatment Course - LABORATORY CBC & Chemistry Diagram: 06/22/18 19:21 06/22/18 19:21 Progress Note - Progress Note Progress Note: 2154hrs: Pt feels better and wishes to be d/c. Will f/u with GI tomorrow a scheduled at 1300hrs. *DC/Admit/Observation/Transfer Diagnosis at time of Disposition: Abdominal pain Qualifiers: Abdominal location: right upper quadrant Qualified Code(s): R10.11 - Right upper quadrant pain - Discharge Dispostion Disposition: HOME Condition at time of disposition: Stable Decision to Admit order: No - Referrals Referrals: Oumar Suarez MD [Staff Physician] - - Patient Instructions Printed Discharge Instructions: DI for Abdominal Pain-Adult Additional Instructions: Follow-up with your washer operator as scheduled for tomorrow Return back to the ER for severe/persistent or worsening symptoms - Post Discharge Activity
[2018-06-22] MEDS ORDERED: SODIUM CHLORIDE 1,000 ML IV STA (19:22)
[2018-06-22 19:56] LABS: BASO % 0.6 % (0-2.0); EOS % 1.2 % (0-4.5); HEMATOCRIT 38.1 % (32.4-45.2); HEMOGLOBIN 12.5 GM/dL (10.7-15.3); LYMPH % 28.7 % (8-40); MCH 27.3 pg (25.7-33.7); MEAN CELL VOLUME 82.7 fl (80-96); MEAN PLT VOLUME 9.3 fl (7.5-11.1); MONO % 8.5 % (3.8-10.2); PLATELET COUNT 288 K/MM3 (134-434); WHITE BLOOD COUNT 10.5 K/mm3 (4.0-10.0)
[2018-06-22 20:07] LABS: ALK PHOS 90 U/L (45-117); ANION GAP 8 (8-16); BILIRUBIN,TOTAL 0.4 mg/dL (0.2-1.0); BLOOD UREA NITROGEN 11 mg/dL (7-18); CALCIUM 8.9 mg/dL (8.5-10.1); CHLORIDE 106 mmol/L (98-107); CO2 30 mmol/L (21-32); CREATININE 0.8 mg/dL (0.55-1.02); GLUCOSE,RANDOM 88 mg/dL (74-106); SGOT/AST 20 U/L (15-37); SGPT/ALT 21 U/L (12-78); SODIUM 144 mmol/L (136-145); TOT PROT 7.8 g/dl (6.4-8.2)
[2018-06-22] MEDS ORDERED: FAMOTIDINE 20 MG/50 ML IVPB 20 MG/50 ML MG IVPB ONE ×2 (21:00→21:11)
[2018-06-22] MEDS ORDERED: MAG HYDROX/AL HYDROX/SIMETH 30 ML UNIT-DOSE CUP PO ONE (21:01)
[2018-06-22] MEDS ORDERED: MAG HYDROX/AL HYDROX/SIMETH 30 ML UNIT-DOSE CUP ONE (21:11)
[2018-06-22 22:21] VITALS: BP 128/71; PULSE 64
== END 2018-06-22 22:00 | disposition home or self-care (01) ==
LOC: JER 15:05
PROC: 3E033GC Introduction of Other Therapeutic Substance into Peripheral Vein, Percutaneous Approach (ICD-10-PCS; principal; 2018-06-22)
PROC: 3E0337Z Introduction of Electrolytic and Water Balance Substance into Peripheral Vein, Percutaneous Approach (ICD-10-PCS; 2018-06-22)
DX: R10.11 Right upper quadrant pain (principal)
CPT/HCPCS: 36415; 80053; 83690; 85025; 99282-25; J7030

== ENCOUNTER 2018-07-09 09:27 | Day surgery (SDC) | payer OTHER ==
[2018-07-09 11:28] VITALS: BMI 30.9
[2018-07-09 13:31] VITALS: TEMP 98.3
[2018-07-09 14:22] VITALS: BP 116/73; PULSE 61
--- NOTE | 2018-07-10 10:50 | PATH ---
Surgical Pathology Report Patient Name: GERALDINE FARIAS [facility]. Rec. #: [id number] /Age/Gender: 1975 (Age: 43) / F Account: [id number] Location: U-ENDOSCOPY Taken: 07/09/2018 Received: 07/09/2018 Reported: 07/10/2018 Physicians: Oumar Suarez M.D. Specimen(s) Received A: BX 2ND PORTION DUODENUM B: BX ANTRUM AND BODY C: ASCENDING COLON POLYP D: BX DESCENDING COLON Clinical History Chronic abdominal pain Postop diagnosis: Gastritis, normal colon, abdominal pain Final Diagnosis A. DUODENUM, SECOND PORTION, BIOPSY: DUODENAL MUCOSA WITHOUT SIGNIFICANT PATHOLOGIC FINDINGS. B. STOMACH, ANTRUM AND BODY, BIOPSY: GASTRIC ANTRAL AND BODY MUCOSA WITH MODERATE CHRONIC ACTIVE GASTRITIS. IMMUNOHISTOCHEMICAL STAIN FOR H. PYLORI IS POSITIVE (MANY). C. ASCENDING COLON, BIOPSY: COLONIC MUCOSA WITHOUT SIGNIFICANT PATHOLOGIC FINDINGS. D. DESCENDING COLON, BIOPSY: COLONIC MUCOSA WITHOUT SIGNIFICANT PATHOLOGIC FINDINGS. Electronically Signed Savita Hanson M.D. Gross Description A. Received in formalin, labeled "second portion duodenum" are 2 coello, irregular portions of soft tissue measuring 0.2 and 0.4 cm. in greatest dimension. The specimens are submitted in toto in one cassette. B. Received in formalin, labeled "antrum and body" are 2 coello, irregular portions of soft tissue measuring 0.3 and 0.4 cm. in greatest dimension. The specimens are submitted in toto in one cassette. C. Received in formalin, labeled "ascending colon" are 2 coello, irregular portions of soft tissue averaging 0.2 cm. in greatest dimension. The specimens are submitted in toto in one cassette. D. Received in formalin, labeled "biopsy descending colon" are 3 coello, irregular portions of soft tissue ranging from 0.2-0.3 cm. in greatest dimension. The specimens are submitted in toto in one cassette. 07/09/201807/09/2018
== END 2018-07-09 14:31 | disposition home or self-care (01) ==
LOC: JASU-ENDO 09:27
PROVIDERS: ATTEND Internal Medicine Gastroenterology
PROC: 0DB98ZZ Excision of Duodenum, Via Natural or Artificial Opening Endoscopic (ICD-10-PCS; 2018-07-09)
PROC: 0DBE8ZX Excision of Large Intestine, Via Natural or Artificial Opening Endoscopic, Diagnostic (ICD-10-PCS; principal; 2018-07-09 12:00)
DX: R10.9 Unspecified abdominal pain (principal)
CPT/HCPCS: 84703; 88305-TC; 88342-TC

== ENCOUNTER 2018-08-14 23:45 | Emergency (ER) | payer OTHER ==
[2018-08-14 23:49] VITALS: BP 115/76; PULSE 90; TEMP 98.2; BMI 30.9
--- NOTE | 2018-08-15 00:57 | PDOC ---
*Physical Exam - Vital Signs Last Vital Signs Temp Pulse Resp BP Pulse Ox 98.2 F 90 18 115/76 98 08/14/18 23:46 08/14/18 23:46 08/14/18 23:46 08/14/18 23:46 08/14/18 23:46 - Physical Exam Comments: 08/15/18 00:57 The patient was examined by [CHRISTA Mata] under my direct supervision. I personally evaluated the patient. I concur with the above findings and the plan of care.
[2018-08-15] MEDS ORDERED: KETOROLAC TROMETHAMINE 30 MG/1 ML VIAL IM ONE (01:14)
--- NOTE | 2018-08-15 01:14 | PDOC ---
History of Present Illness - General Chief Complaint: Back Pain Stated Complaint: BACK PAIN Time Seen by Provider: 08/15/18 00:06 History Source: Patient Exam Limitations: No Limitations - History of Present Illness Initial Comments: 08/15/18 01:52 Best Contact: PCP: Pmhx: Pshx: Allergies: FH: Social Hx: Cigarettes/ Alcohol/ Drugs/ LMP: 43-year-old female presents to the emergency department complaining of low back pain. Patient states due to uneven sidewalk, she tripped and fell onto her buttocks 3 days ago causing left sided lbp. Patient states she's been taken OxyContin 10 mg with some relief. Patient states she did not take any OxyContin today and denies bladder or bowel dysfunction, extremity numbness or tingling sensation, abdominal discomfort, fever, chills, nausea/vomiting, headache, dizziness, chest pain, shortness of breath. Pain is described as 8/10 dull nonradiating intermittent discomfort. Pain is exacerbated on certain movements and alleviated minimally at rest. Patient states she had a herniated nucleus pulposis and had microlumbar discectomy 5 years ago. Occurred: reports: just prior to arrival Past History - Past Medical History Allergies/Adverse Reactions: Allergies Allergy/AdvReac Type Severity Reaction Status Date / Time No Known Allergies Allergy Verified 08/14/18 23:48 Home Medications: Ambulatory Orders Oxycodone HCl/Acetaminophen [Percocet 5-325 mg Tablet] 1 tab PO Q6H PRN #20 tablet MDD 4 tabs 01/08/17 Methocarbamol [Robaxin -] 500 mg PO TID #30 tablet 08/15/18 Anemia: No Asthma: No Cancer: No Cardiac Disorders: No CVA: No COPD: No CHF: No DVT: No Dementia: No Diabetes: No GI Disorders: No Disorders: No HTN: No Hypercholesterolemia: No Liver Disease: No Seizures: Yes Thyroid Disease: No - Surgical History Abdominal Surgery: Yes Appendectomy: Yes Cardiac Surgery: No Cholecystectomy: No Lung Surgery: No Neurologic Surgery: No Orthopedic Surgery: Yes (dislocated disc) - Immunization History Immunization Up to Date: Yes - Suicide/Smoking/Psychosocial Hx Smoking History: Never smoked Have you smoked in the past 12 months: No Information on smoking cessation initiated: No Hx Alcohol Use: No Drug/Substance Use Hx: No Substance Use Type: None Hx Substance Use Treatment: No Trauma Specific PMHX - Complaint Specific PMHX Back Injury: Yes Neck Injury: No Hx Sacro Iliac Joint Dysfunction: No Review of Systems - Review of Systems Able to Perform ROS?: Yes Comments:: 08/15/18 01:54 CONSTITUTIONAL: Absent: fever, chills, diaphoresis, generalized weakness, malaise, loss of appetite HEENT: Absent: rhinorrhea, nasal congestion, throat pain, throat swelling, difficulty swallowing, mouth swelling, ear pain, eye pain, visual Changes CARDIOVASCULAR: Absent: chest pain, loss of consciousness, palpitations, irregular heart rate, peripheral edema RESPIRATORY: Absent: cough, shortness of breath, dyspnea with exertion, orthopnea, wheezing, stridor, hemoptysis GASTROINTESTINAL: Absent: abdominal pain, abdominal distension, nausea, vomiting, diarrhea, constipation, melena, hematochezia GENITOURINARY: Absent: dysuria, frequency, urgency, hesitancy, hematuria, flank pain, genital pain MUSCULOSKELETAL: +lumbar/sacral left sided Low back pain Absent: myalgia, arthralgia, joint swelling SKIN: Absent: rash, itching, pallor HEMATOLOGIC/IMMUNOLOGIC: Absent: easy bleeding, easy bruising, lymphadenopathy, frequent infections ENDOCRINE: Absent: unexplained weight gain, unexplained weight loss, heat intolerance, cold intolerance NEUROLOGIC: Absent: headache, focal weakness or paresthesias, dizziness, unsteady gait, seizure, mental status changes, bladder or bowel incontinence Is the patient limited Pashto proficient: No *Physical Exam - Vital Signs Last Vital Signs Temp Pulse Resp BP Pulse Ox 98.2 F 90 18 115/76 98 08/14/18 23:46 08/14/18 23:46 08/14/18 23:46 08/14/18 23:46 08/14/18 23:46 - Physical Exam Comments: 08/15/18 01:55 GENERAL: Well developed, well nourished. Awake and alert. No acute distress. HEENT: Normocephalic, atraumatic. PERRLA, EOMI. No conjunctival pallor. Sclera are non- icteric. Moist mucous membranes. Oropharynx is clear. NECK: Supple. Full ROM. No JVD. Carotid pulses 2+ and symmetric, without bruits. No thyromegaly. No lymphadenopathy. CARDIOVASCULAR: Regular rate and rhythm. No murmurs, rubs, or gallops. Distal pulses are 2+ and symmetric. PULMONARY: No evidence of respiratory distress. Lungs clear to auscultation bilaterally. No wheezing, rales or rhonchi. ABDOMINAL: Soft. Non-tender. Non-distended. No rebound or guarding. No organomegaly. Normoactive bowel sounds. MUSCULOSKELETAL Left sided LBP Normal range of motion at all joints. No bony deformities or tenderness. No CVA tenderness. EXTREMITIES: No cyanosis. No clubbing. No edema. No calf tenderness. SKIN: Warm and dry. Normal capillary refill. No rashes. No jaundice. NEUROLOGICAL: Alert, awake, appropriate. Cranial nerves 2-12 intact. No deficits to light touch and temperature in face, upper extremities and lower extremities. No motor deficits in the in face, upper extremities and lower extremities. Normoreflexic in the upper and lower extremities. Normal speech. Toes are down- going bilaterally. Gait is normal without ataxia. ED Treatment Course - RADIOLOGY Radiograph Interpretation: 08/15/18 02:29 Xray LS spine= 4v neg 08/15/18 02:56 pt states pain is down to 4/10 dullness *DC/Admit/Observation/Transfer Diagnosis at time of Disposition: Lumbar back pain Qualifiers: Chronicity: acute Back pain laterality: left Sciatica presence: without sciatica Qualified Code(s): M54.5 - Low back pain - Discharge Dispostion Condition at time of disposition: Stable - Prescriptions Prescriptions: Methocarbamol [Robaxin -] 500 mg PO TID #30 tablet - Referrals Referrals: Boy Matias MD [Staff Physician] - - Patient Instructions Printed Discharge Instructions: DI for Low Back Pain Additional Instructions: Rest Avoid lifting Tylenol alternating with motrin as needed for pain Follow up with your neurosurgeon or the one listed on your discharge paper Return to the Er for any bladder/bowel dysfunction, severe/persistent/worsening symptoms - Post Discharge Activity
[2018-08-15] MEDS ORDERED: KETOROLAC TROMETHAMINE 30 MG/1 ML VIAL ONE (01:39)
[2018-08-15] MEDS ORDERED: METHOCARBAMOL 500 MG TABLET PO ONE (02:53)
[2018-08-15] MEDS ORDERED: METHOCARBAMOL 500 MG TABLET ONE (03:03)
== END 2018-08-15 04:26 | disposition home or self-care (01) ==
LOC: JER 23:45
PROC: 3E0233Z Introduction of Anti-inflammatory into Muscle, Percutaneous Approach (ICD-10-PCS; principal; 2018-08-14)
DX: M54.5 Low back pain (principal); W18.39XA Other fall on same level, initial encounter; Y93.89 Activity, other specified; Y92.480 Sidewalk as the place of occurrence of the external cause; Y99.8 Other external cause status
CPT/HCPCS: 72100-TC-FY; 96372; 99282-25

== ENCOUNTER 2019-07-30 10:02 | Emergency (ER) | payer OTHER ==
[2019-07-30 10:11] VITALS: BP 124/74; PULSE 52; TEMP 97.9; BMI 33.1
--- NOTE | 2019-07-30 11:18 | PDOC ---
History of Present Illness - General Chief Complaint: Back Pain Stated Complaint: LWR BACK PAIN Time Seen by Provider: 07/30/19 10:19 History Source: Patient Exam Limitations: No Limitations Past History - Travel Traveled outside of the country in the last 30 days: No Close contact w/someone who was outside of country & ill: No - Past Medical History Allergies/Adverse Reactions: Allergies Allergy/AdvReac Type Severity Reaction Status Date / Time No Known Allergies Allergy Verified 07/30/19 10:08 Home Medications: Ambulatory Orders Oxycodone HCl/Acetaminophen [Percocet 5-325 mg Tablet] 1 tab PO Q6H PRN #20 tablet MDD 4 tabs 01/08/17 Diazepam [Valium] 2 mg PO BID #10 tablet MDD 2 07/30/19 Gabapentin [Neurontin] 600 mg PO TID 07/30/19 Ibuprofen 600 mg PO Q6H #30 tablet 07/30/19 Methylprednisolone [Medrol -] 4 mg PO ASDIR #21 tablet 07/30/19 Anemia: No Asthma: No Cancer: No Cardiac Disorders: No CVA: No COPD: No CHF: No DVT: No Dementia: No Diabetes: No GI Disorders: No Disorders: No HTN: No Hypercholesterolemia: No Liver Disease: No Seizures: Yes Thyroid Disease: No - Surgical History Abdominal Surgery: Yes Appendectomy: Yes Cardiac Surgery: No Cholecystectomy: No Lung Surgery: No Neurologic Surgery: No Orthopedic Surgery: Yes (dislocated disc) - Immunization History Immunization Up to Date: Yes - Suicide/Smoking/Psychosocial Hx Smoking History: Never smoked Have you smoked in the past 12 months: No Hx Alcohol Use: No Drug/Substance Use Hx: No Substance Use Type: None Hx Substance Use Treatment: No Review of Systems - Review of Systems Able to Perform ROS?: Yes Comments:: 07/30/19 11:26 CONSTITUTIONAL: Absent: fever, chills, diaphoresis, generalized weakness, malaise, loss of appetite GASTROINTESTINAL: Absent: abdominal pain, abdominal distension, nausea, vomiting, diarrhea, constipation, melena, hematochezia GENITOURINARY: Absent: dysuria, frequency, urgency, hesitancy, hematuria, flank pain, genital pain MUSCULOSKELETAL: Present: low back pain Absent: arthralgia, joint swelling SKIN: Absent: rash, itching, pallor NEUROLOGIC: Absent: headache, focal weakness or paresthesias, dizziness, unsteady gait, seizure, mental status changes, bladder or bowel incontinence PSYCHIATRIC: Absent: anxiety, depression, suicidal or homicidal ideation, hallucinations. Is the patient limited Indonesian proficient: No *Physical Exam - Vital Signs Last Vital Signs Temp Pulse Resp BP Pulse Ox 97.9 F 52 L 16 124/74 99 07/30/19 10:05 07/30/19 10:05 07/30/19 10:05 07/30/19 10:05 07/30/19 10:05 - Physical Exam Comments: 07/30/19 11:31 GENERAL: Well developed, well nourished. Awake and alert. No acute distress. HEENT: Normocephalic, atraumatic. PERRLA, EOMI. No conjunctival pallor. Sclera are non- icteric. Moist mucous membranes. Oropharynx is clear. NECK: Supple. Full ROM. No JVD. Carotid pulses 2+ and symmetric, without bruits. No thyromegaly. No lymphadenopathy. CARDIOVASCULAR: Regular rate and rhythm. No murmurs, rubs, or gallops. Distal pulses are 2+ and symmetric. PULMONARY: No evidence of respiratory distress. Lungs clear to auscultation bilaterally. No wheezing, rales or rhonchi. ABDOMINAL: Soft. Non-tender. Non-distended. No rebound or guarding. No organomegaly. Normoactive bowel sounds. MUSCULOSKELETAL No TTP of the back muscles, however, tightness noted b/l from T12-L3. Decreased ROM with flexion of the back d/t pain. (+) straight leg raise on the L. Normal range of motion at all other joints. No bony deformities or tenderness. No CVA tenderness. EXTREMITIES: No cyanosis. No clubbing. No edema. No calf tenderness. SKIN: Warm and dry. Normal capillary refill. No rashes. No jaundice. NEUROLOGICAL: Alert, awake, appropriate. Cranial nerves 2-12 intact. No deficits to light touch and temperature in face, upper extremities and lower extremities. No motor deficits in the in face, upper extremities and lower extremities. Normoreflexic in the upper and lower extremities. Normal speech. Toes are down- going bilaterally. Gait is normal without ataxia. PSYCHIATRIC: Cooperative. Good eye contact. Appropriate mood and affect. Medical Decision Making - Medical Decision Making 07/30/19 11:38 The patient is a 44-year-old female with past medical history of back surgery 5 years ago, presents to the ER today with mid to low back pain. She states she's had the pain for approximately one week. She denies any inciting factors. She notes that she drives short distances frequently and sits for prolonged periods of time which may have started her symptoms. She has been taking her oxycodone and gabapentin as prescribed without relief of her pain. She states that the pain is running down both of her legs. Denies fevers, chills, trauma, saddle anesthesia, bladder bowel incontinence and numbness and tingling to the affected extremities. A/P: Back pain with sciatica - TTP of the back muscles, however, tightness noted b/l from T12-L3. Decreased ROM with flexion of the back d/t pain. (+) straight leg raise on the L. -No trauma, or fever. No saddle anesthesia or bladder/bowel incontinence. No CVA tenderness. -Pt is neurologically intact on exam with no focal findings. -Toradol, decadron, lidocaine patch given with relief of symptoms -DC home. Ortho follow up given for if symptoms do not resolve. -I discussed the physical exam findings, ancillary test results and final diagnoses with the patient. I answered all of the patient's questions. The patient was satisfied with the care received and felt comfortable with the discharge plan and treatment plan. The Patient agrees to follow up with the primary care physician/specialist within 24-72 hours. Return precautions were given. *DC/Admit/Observation/Transfer Diagnosis at time of Disposition: Radicular low back pain - Discharge Dispostion Disposition: HOME Condition at time of disposition: Stable Decision to Admit order: No - Referrals Referrals: Kenrick Mcdonough MD [Staff Physician] - - Patient Instructions Printed Discharge Instructions: DI for Low Back Pain Additional Instructions: You have low back pain due to a muscle spasm. Please take ibuprofen 800 mg 3 times a day not to exceed 3000 mg a day. You were also prescribed Valium. Please take this medication twice a day. Do not drive after taking this medication as it may make you sleepy. Take the medrol dose pack as prescribed. You may use warm compresses on your back to help with her symptoms. Please follow-up with your primary care doctor. If your symptoms do not resolve in 3-5 days, follow-up with orthopedics. A referral has been provided for you. Return to the emergency department if you have worsening back pain, bladder or bowel incontinence, numbness and tingling in her legs, changes in the way you walk, or any new or worsening symptoms. - Post Discharge Activity Forms/Work/School Notes: Back to Work
[2019-07-30] MEDS ORDERED: LIDOCAINE 5% TOPICAL PATCH TP ONE (11:28)
[2019-07-30] MEDS ORDERED: KETOROLAC TROMETHAMINE 60 MG/2 ML VIAL IM ONE (11:28)
[2019-07-30] MEDS ORDERED: DEXAMETHASONE LIQUID 0.5 MG/5 ML PO ONE (11:29)
[2019-07-30] MEDS ORDERED: DEXAMETHASONE SOD PHOSPHATE 10 MG/1 ML VIAL ONE (11:37)
[2019-07-30] MEDS ORDERED: KETOROLAC TROMETHAMINE 60 MG/2 ML VIAL ONE (11:37)
[2019-07-30] MEDS ORDERED: LIDOCAINE 5% TOPICAL PATCH ONE ×2 (11:37→11:38)
[2019-07-30] MEDS ORDERED: LIDOCAINE PATCH REMOVAL MC SCH (22:00)
== END 2019-07-30 12:02 | disposition home or self-care (01) ==
LOC: JERFT 10:02
PROC: 3E0233Z Introduction of Anti-inflammatory into Muscle, Percutaneous Approach (ICD-10-PCS; principal; 2019-07-30)
DX: M54.16 Radiculopathy, lumbar region (principal)
CPT/HCPCS: 96372; 99281-25

== ENCOUNTER 2019-10-16 00:02 | Inpatient (IN) | payer OTHER ==
--- NOTE | 2019-10-16 02:18 | PDOC ---
Attending Attestation - Resident Resident Name: Edmar Hassan - ED Attending Attestation I have performed the following: I have examined & evaluated the patient, The case was reviewed & discussed with the resident, I agree w/resident's findings & plan - HPI HPI: 10/16/19 03:07 Pt comes with chronic low back pain. She is limping. She has a pain management doctor. 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 FINDINGS: Lack of intravenous contrast limits this exam. Beam hardening streak artifacts limits evaluation of the spinal canal contents. Cannot exclude a mass in the conus. Moderate to severe loss of disc space height at L5-S1 with degenerative gas in the disc space. Mild disc osteophyte complex at L5-S1 mildly effaces the ventral lateral epidural space. No other significant degenerative disc disease. No acute fracture or traumatic subluxation. IMPRESSION: Moderate to severe loss of disc space height at L5-S1 with degenerative gas in the disc space. Mild disc osteophyte complex at L5-S1 mildly effaces the ventral lateral epidural space. Evaluation of the spinal canal contents is limited. Cannot exclude a mass in the conus. If clinically indicated recommend correlation with MRI Of The lumbar spine with contrast. No acute fracture or traumatic subluxation 10/16/19 06:17 Pt will be signed out to the day team and she will get an MRI in the AM
[2019-10-16] MEDS ORDERED: KETOROLAC TROMETHAMINE 60 MG/2 ML VIAL IM ONE (02:47)
[2019-10-16] MEDS ORDERED: DEXAMETHASONE SOD PHOSPHATE 10 MG/1 ML VIAL IM ONE (02:47)
--- NOTE | 2019-10-16 03:06 | PDOC ---
History of Present Illness - General Chief Complaint: Back Pain Stated Complaint: BACK/ LEG PAIN Time Seen by Provider: 10/16/19 02:16 History Source: Patient Exam Limitations: No Limitations - History of Present Illness Initial Comments: 10/16/19 02:54 44 yo female pmh back surgery 5 years ago for disc protrusion (no hardware, disc still in place), presents to the ER with mid to low back pain and numbness/ tingling into the R lower ext. Pain is described as sharp and shooting, begins in the lower back and radiates into the R lower ext. States she gets many flare ups requiring ER visits and has not had CT or MRI in years. Pt has not followed with spine surgery but regularly sees her pain management doctor, uses 10 mg oxy infrequently for pain, also uses gabapentin and baclofen which have not helped. Pt admits to difficulty ambulating due to pain and is not able to lift her leg off the table for longer than 5 seconds. Pt denies recent trauma, saddle anesthesia, incontinence, abdominal pain, F/C/N/V, CP, SOB. Denies IV drug use or CA hx Past History - Past Medical History Allergies/Adverse Reactions: Allergies Allergy/AdvReac Type Severity Reaction Status Date / Time No Known Allergies Allergy Verified 10/16/19 01:11 Home Medications: Ambulatory Orders Baclofen 20 mg PO DAILY 10/16/19 Gabapentin [Neurontin] 300 mg PO TID 10/16/19 Ibuprofen 600 mg PO PRN 10/16/19 Lidocaine 5% Patch [Lidoderm Patch -] 1 patch TP DAILY #30 patch 10/16/19 Anemia: No Asthma: No Cancer: No Cardiac Disorders: No CVA: No COPD: No CHF: No DVT: No Dementia: No Diabetes: No GI Disorders: No Disorders: No HTN: No Hypercholesterolemia: No Liver Disease: No Seizures: Yes Thyroid Disease: No - Surgical History Abdominal Surgery: Yes Appendectomy: Yes Cardiac Surgery: No Cholecystectomy: No Lung Surgery: No Neurologic Surgery: No Orthopedic Surgery: Yes (dislocated disc) - Immunization History Immunization Up to Date: Yes - Psycho Social/Smoking Cessation Hx Smoking History: Never smoked Have you smoked in the past 12 months: No Information on smoking cessation initiated: No Hx Alcohol Use: No Drug/Substance Use Hx: No Substance Use Type: None Hx Substance Use Treatment: No Review of Systems - Review of Systems Constitutional: No: Chills, Fever Respiratory: No: Shortness of Breath Cardiac (ROS): No: Chest Pain ABD/GI: No: Constipated, Diarrhea, Nausea, Vomiting : No: Burning, Dysuria, Flank Pain, Hematuria Musculoskeletal: Yes: Back Pain (with radiation down right leg described as numbness) Integumentary: No: Bruising, Change in Color, Rash Neurological: Yes: Numbness, Paresthesia, Tingling, Weakness, Unsteady Gait. No : Ataxia, Dizziness *Physical Exam - Vital Signs Last Vital Signs Temp Pulse Resp BP Pulse Ox 97.0 F L 84 20 96/63 100 10/16/19 01:21 10/16/19 01:21 10/16/19 01:21 10/16/19 01:21 10/16/19 01:21 - Physical Exam General Appearance: Yes: Nourished, Appropriately Dressed, Apparent Distress ( pain with radiation down R leg) Neck: positive: Supple. negative: Carotid bruit Respiratory/Chest: positive: Lungs Clear, Normal Breath Sounds. negative: Respiratory Distress, Accessory Muscle Use, Crackles, Rales, Rhonchi, Stridor Cardiovascular: positive: Regular Rhythm, Regular Rate, S1, S2. negative: Edema , JVD, Murmur Vascular Pulses: Dorsalis-Pedis (R): 4+, Doralis-Pedis (L): 4+ Gastrointestinal/Abdominal: positive: Flat, Soft. negative: Pulsatile Mass, Protuberent, Distended, Guarding, Rebound, Tenderness Musculoskeletal: negative: CVA Tenderness Extremity: positive: Normal Capillary Refill, Other (positive straight leg raise on the right. Difficulty ambulating due to pain ). negative: Normal Range of Motion Integumentary: positive: Normal Color, Dry, Warm Neurologic: positive: Fully Oriented, Alert, Normal Mood/Affect, Normal Response. negative: Motor Strength 5/5 (unable to assess R lower leg strength ) ED Treatment Course - LABORATORY CBC & Chemistry Diagram: 10/16/19 06:20 10/16/19 06:20 Medical Decision Making - Medical Decision Making 10/16/19 06:59 44 yo female pmh back surgery 5 years ago for disc protrusion (no hardware, disc still in place), presents to the ER with mid to low back pain and numbness/ tingling into the R lower ext. Pain is described as sharp and shooting, begins in the lower back and radiates into the R lower ext. States she gets many flare ups requiring ER visits and has not had CT or MRI in years. Pt has not followed with spine surgery but regularly sees her pain management doctor, uses 10 mg oxy infrequently for pain, also uses gabapentin and baclofen which have not helped. Pt admits to difficulty ambulating due to pain and is not able to lift her leg off the table for longer than 5 seconds. Pt denies recent trauma, saddle anesthesia, incontinence, abdominal pain, F/C/N/V, CP, SOB. Denies IV drug use or CA hx vitals wnl See PE Toradol and decadron helped with similar pain last time, will give 10 mg decadron and 60 mg of toradol. Pt admits to mild relief of pain after medications CT shows possible mass around conus medullaris and recommends MRI Admission labs and morphine for pain given morphine for pain control MRI in th am pending Discharge - Discharge Information Problems reviewed: Yes Clinical Impression/Diagnosis: Back pain - Additional Discharge Information Prescriptions: Lidocaine 5% Patch [Lidoderm Patch -] 1 patch TP DAILY #30 patch - Follow up/Referral Referrals: Kaleb Sapp MD [Primary Care Provider] - - Patient Discharge Instructions - Post Discharge Activity
[2019-10-16] MEDS ORDERED: LIDOCAINE 5% TOPICAL PATCH TP ONE (05:08)
[2019-10-16] MEDS ORDERED: morphine CARPU-JECT 2 MG/1 ML DISP.SYRIN IVPUSH ONE (06:23)
[2019-10-16 06:42] LABS: BASO % 0.4 % (0-2.0); EOS % 0.2 % (0-4.5); HEMATOCRIT 40.4 % (32.4-45.2); HEMOGLOBIN 13.3 GM/dL (10.7-15.3); LYMPH % 11.3 % (8-40); MCHC 32.8 g/dl (32.0-36.0); MEAN CELL VOLUME 82.1 fl (80-96); MEAN PLT VOLUME 9.1 fl (7.5-11.1); MONO % 2.3 % (3.8-10.2); NEUT % 85.8 % (42.8-82.8); PLATELET COUNT 287 K/MM3 (134-434); RBC 4.92 M/mm3 (3.60-5.2); RDW 15.3 % (11.6-15.6); WHITE BLOOD COUNT 11.9 K/mm3 (4.0-10.0)
[2019-10-16 07:15] LABS: ALBUMIN 3.7 g/dl (3.4-5.0); BILIRUBIN,TOTAL 0.3 mg/dL (0.2-1); BLOOD UREA NITROGEN 15.8 mg/dL (7-18); CALCIUM 9.2 mg/dL (8.5-10.1); CREATININE 0.9 mg/dL (0.55-1.3); POTASSIUM 4.9 mmol/L (3.5-5.1)
--- NOTE | 2019-10-16 07:26 | PDOC ---
*Physical Exam - Vital Signs Last Vital Signs Temp Pulse Resp BP Pulse Ox 97.7 F 75 20 99/68 100 10/16/19 07:01 10/16/19 07:01 10/16/19 07:01 10/16/19 07:01 10/16/19 07:01 <Christina Galaviz - Last Filed: 10/16/19 08:24> - Vital Signs Last Vital Signs Temp Pulse Resp BP Pulse Ox 97.7 F 75 20 99/68 100 10/16/19 07:01 10/16/19 07:01 10/16/19 07:01 10/16/19 07:01 10/16/19 07:01 <Avril Izaguirreprashanth - Last Filed: 10/16/19 13:28> ED Treatment Course - LABORATORY CBC & Chemistry Diagram: 10/16/19 06:20 10/16/19 06:20 - ADDITIONAL ORDERS Additional order review: Laboratory Results 10/16/19 06:20 Sodium 138 Potassium 4.9 Chloride 103 Carbon Dioxide 29 Anion Gap 6 L BUN 15.8 Creatinine 0.9 Est GFR (CKD-EPI)AfAm 88.87 Est GFR (CKD-EPI)NonAf 76.68 Random Glucose 117 H Calcium 9.2 Total Bilirubin 0.3 AST 21 ALT 25 Alkaline Phosphatase 125 H Total Protein 8.0 Albumin 3.7 10/16/19 06:20 RBC 4.92 MCV 82.1 MCHC 32.8 RDW 15.3 MPV 9.1 Neutrophils % 85.8 H D Lymphocytes % 11.3 D Monocytes % 2.3 L Eosinophils % 0.2 D Basophils % 0.4 - Medications Given in the ED: ED Medications Discontinued Medications Generic Name Dose Route Start Last Admin Trade Name Freq PRN Reason Stop Dose Admin Dexamethasone Sodium Phosphate 10 mg 10/16/19 02:47 10/16/19 03:09 Decadron Injection - IM 10/16/19 02:48 10 mg ONCE ONE Administration Ketorolac Tromethamine 60 mg 10/16/19 02:47 10/16/19 03:09 Toradol Injection - IM 10/16/19 02:48 60 mg ONCE ONE Administration Lidocaine 1 patch 10/16/19 05:08 10/16/19 05:13 Lidoderm Patch - TP 10/16/19 05:09 1 patch ONCE ONE Administration Morphine Sulfate 2 mg 10/16/19 06:23 10/16/19 06:41 Morphine Injection - IVPUSH 10/16/19 06:24 2 mg ONCE ONE Administration <Christina Galaviz - Last Filed: 10/16/19 08:24> - LABORATORY CBC & Chemistry Diagram: 10/16/19 06:20 10/16/19 06:20 - ADDITIONAL ORDERS Additional order review: Laboratory Results 10/16/19 06:20 Sodium 138 Potassium 4.9 Chloride 103 Carbon Dioxide 29 Anion Gap 6 L BUN 15.8 Creatinine 0.9 Est GFR (CKD-EPI)AfAm 88.87 Est GFR (CKD-EPI)NonAf 76.68 Random Glucose 117 H Calcium 9.2 Total Bilirubin 0.3 AST 21 ALT 25 Alkaline Phosphatase 125 H Total Protein 8.0 Albumin 3.7 10/16/19 06:20 RBC 4.92 MCV 82.1 MCHC 32.8 RDW 15.3 MPV 9.1 Neutrophils % 85.8 H D Lymphocytes % 11.3 D Monocytes % 2.3 L Eosinophils % 0.2 D Basophils % 0.4 - Medications Given in the ED: ED Medications Discontinued Medications Generic Name Dose Route Start Last Admin Trade Name Freq PRN Reason Stop Dose Admin Dexamethasone Sodium Phosphate 10 mg 10/16/19 02:47 10/16/19 03:09 Decadron Injection - IM 10/16/19 02:48 10 mg ONCE ONE Administration Ketorolac Tromethamine 60 mg 10/16/19 02:47 10/16/19 03:09 Toradol Injection - IM 10/16/19 02:48 60 mg ONCE ONE Administration Lidocaine 1 patch 10/16/19 05:08 10/16/19 05:13 Lidoderm Patch - TP 10/16/19 05:09 1 patch ONCE ONE Administration Morphine Sulfate 2 mg 10/16/19 06:23 10/16/19 06:41 Morphine Injection - IVPUSH 10/16/19 06:24 2 mg ONCE ONE Administration <Avril Izaguirre - Last Filed: 10/16/19 13:28> Medical Decision Making - Medical Decision Making 10/16/19 07:25 Sign out received from Dr Hassan. Isa Garcia is a 44yo woman with a PMH of chronic back pain, s/p disc surgery 5 year ago, who presented overnight with new onset of acutely worsening back pain as well as numbness/tingling in the RLE despite using gabapentin, baclofen, lidocaine patches and occasional oxycodone at home. She was noted to be having difficulty walking in the ED, and exam was limited by pain. ED course so far notable for: - Difficulty walking in the ED - Given 10mg decadron, 60mg IM toradol - CT completed, indicates possible mass around conus medullaris. Recommended MRI - Morphine for pain, labs sent. No concerning abnormalities - Spoke to pt. Pain has not improved, and she reports the feeling of "tiredness " in her RLE as well as numbness/tingling in the right foot, which are new - MRI not available currently - Will speak to hospitalist team regarding MRI, neurosurgery evaluation 10/16/19 07:32 - Sign out given to Dr Collazo by Dr Hassan. Will admit for further management. Discussed with Dr Zina Galaviz PGY2 <Christina Galaviz - Last Filed: 10/16/19 08:24> - Medical Decision Making agree with resident note as documented admitting to hospitalist service for MRI of back, with acute on chronic back pain, RLE paresthesia and weakness. CT lumbar spine with moderate to severe L5-S1 degenerative disease, spinal canal could not be fully evaluated so warrants MRI imaging to elucidate symptoms and eval for spinal cord pathology/compression given the acuity of symptoms. 10/16/19 07:46 <Avril Izaguirre - Last Filed: 10/16/19 13:28> Discharge - Discharge Information Problems reviewed: Yes - Admission Yes <Christina Galaviz - Last Filed: 10/16/19 08:24> - Admission Yes <Avril Izaguirre - Last Filed: 10/16/19 13:28> - Discharge Information Clinical Impression/Diagnosis: Back pain Qualifiers: Back pain location: low back pain Chronicity: unspecified Back pain laterality : unspecified Sciatica presence: unspecified whether sciatica present Qualified Code(s): M54.5 - Low back pain Condition: Guarded
[2019-10-16] MEDS ORDERED: MORPHINE SULFATE 2 MG/ML VIAL IM PRN (07:58)
--- NOTE | 2019-10-16 09:00 | HP ---
CHIEF COMPLAINT: PCP: HISTORY OF PRESENT ILLNESS: 44 yo female pmh back surgery 5 years ago for disc protrusion (no hardware, disc still in place), presents to the ER with mid to low back pain and numbness/ tingling into the R lower ext. Pain is described as sharp and shooting, begins in the lower back and radiates into the R lower ext. States she gets many flare ups requiring ER visits and has not had CT or MRI in years. Pt has not followed with spine surgery but regularly sees her pain management doctor, uses 10 mg oxy infrequently for pain, also uses gabapentin and baclofen which have not helped. Pt admits to difficulty ambulating due to pain and is not able to lift her leg off the table for longer than 5 seconds. Pt denies recent trauma, saddle anesthesia, incontinence, abdominal pain, F/C/N/V, CP, SOB. Denies IV drug use or CA hx She has been going to different ER for the pain also taking off-and-on medication. She was in the ER few months ago given medication for the pain is sent home. ER course was notable for: (1) multiple ER visits (2) sterile spinal surgery (3) and taking medication from the pain management Recent Travel: Denies any history of recent travel PAST MEDICAL HISTORY: History of chronic pain management and spine surgery PAST SURGICAL HISTORY: Spinal surgery in the lumbar area Social History: She denies smoking alcohol or drug use. Smoking: Alcohol: Drugs: Allergies No Known Allergies Allergy (Verified 10/16/19 01:11) HOME MEDICATIONS: Home Medications Medication Instructions Recorded Baclofen 20 mg PO DAILY 10/16/19 Gabapentin [Neurontin] 300 mg PO TID 10/16/19 Ibuprofen 600 mg PO PRN 10/16/19 Lidocaine 5% Patch [Lidoderm Patch 1 patch TP DAILY #30 patch 10/16/19 -] REVIEW OF SYSTEMS CONSTITUTIONAL: Absent: fever, chills, diaphoresis, generalized weakness, malaise, loss of appetite, weight change HEENT: Absent: rhinorrhea, nasal congestion, throat pain, throat swelling, difficulty swallowing, mouth swelling, ear pain, eye pain, visual changes CARDIOVASCULAR: Absent: chest pain, syncope, palpitations, irregular heart rate, lightheadedness , peripheral edema RESPIRATORY: Absent: cough, shortness of breath, dyspnea with exertion, orthopnea, wheezing, stridor, hemoptysis GASTROINTESTINAL: Absent: abdominal pain, abdominal distension, nausea, vomiting, diarrhea, constipation, melena, hematochezia GENITOURINARY: Absent: dysuria, frequency, urgency, hesitancy, hematuria, flank pain, genital pain MUSCULOSKELETAL: Absent: myalgia, arthralgia, joint swelling, , neck pain she is complaining of pain started from the back radiating to right leg SKIN: Absent: rash, itching, pallor HEMATOLOGIC/IMMUNOLOGIC: Absent: easy bleeding, easy bruising, lymphadenopathy, frequent infections ENDOCRINE: Absent: unexplained weight gain, unexplained weight loss, heat intolerance, cold intolerance NEUROLOGIC: Absent: headache, focal weakness or paresthesias, dizziness, unsteady gait, seizure, mental status changes, bladder or bowel incontinence PSYCHIATRIC: Absent: anxiety, depression, suicidal or homicidal ideation, hallucinations. PHYSICAL EXAMINATION Vital Signs - 24 hr 10/16/19 10/16/19 01:21 07:01 Temperature 97.0 F L 97.7 F Pulse Rate 84 Pulse Rate [ 75 Right Radial] Respiratory 20 20 Rate Blood Pressure 96/63 Blood Pressure 99/68 [Right Arm] O2 Sat by Pulse 100 100 Oximetry (%) GENERAL: Awake, alert, and fully oriented, in no acute distress. HEAD: Normal with no signs of trauma. EYES: Pupils equal, round and reactive to light, extraocular movements intact, sclera anicteric, conjunctiva clear. No lid lag. EARS, NOSE, THROAT: Ears normal, nares patent, oropharynx clear without exudates. Moist mucous membranes. NECK: Normal range of motion, supple without lymphadenopathy, JVD, or masses. LUNGS: Breath sounds equal, clear to auscultation bilaterally. No wheezes, and no crackles. No accessory muscle use. HEART: Regular rate and rhythm, normal S1 and S2 without murmur, rub or gallop. ABDOMEN: Soft, nontender, not distended, normoactive bowel sounds, no guarding, no rebound, no masses. No hepatomegaly or splenomegaly. MUSCULOSKELETAL: Normal range of motion at all joints. No bony deformities or tenderness. No CVA tenderness. UPPER EXTREMITIES: 2+ pulses, warm, well-perfused. No cyanosis. No clubbing. No peripheral edema. LOWER EXTREMITIES: 2+ pulses, warm, well-perfused. No calf tenderness. No peripheral edema. NEUROLOGICAL: Cranial nerves II-XII intact. Normal speech. Normal gait. PSYCHIATRIC: Cooperative. Good eye contact. Appropriate mood and affect. SKIN: Warm, dry, normal turgor, no rashes or lesions noted, normal capillary refill. Laboratory Results - last 24 hr 10/16/19 10/16/19 06:20 06:20 WBC 11.9 H RBC 4.92 Hgb 13.3 Hct 40.4 MCV 82.1 MCH 27.0 MCHC 32.8 RDW 15.3 Plt Count 287 MPV 9.1 Absolute Neuts (auto) 10.2 H Neutrophils % 85.8 H D Lymphocytes % 11.3 D Monocytes % 2.3 L Eosinophils % 0.2 D Basophils % 0.4 Nucleated RBC % 0 Sodium 138 Potassium 4.9 Chloride 103 Carbon Dioxide 29 Anion Gap 6 L BUN 15.8 Creatinine 0.9 Est GFR (CKD-EPI)AfAm 88.87 Est GFR (CKD-EPI)NonAf 76.68 Random Glucose 117 H Calcium 9.2 Total Bilirubin 0.3 AST 21 ALT 25 Alkaline Phosphatase 125 H Total Protein 8.0 Albumin 3.7 She had a CAT scan done in ER of lumbar spine which showed moderate to severe loss of disc space height at L5-S1 with degenerative gas in the disc space. Mild disc osteophyte complex at L5-S1 and also the possibility of some mass like thing exclusion in the conus area. Discussed with the neurosurgeon Dr. Edd Ochoa and he thinks that he cannot comment on this mass until he sees the MRI I will order the MRI and requested stat and they are working on it. ASSESSMENT/PLAN: Acute back pain radiating to right arm with a history of spine surgery in the past. We will order an MRI of the lumbar spine Regular diet activity as tolerated We will start her muscle relaxant baclofen and Tylenol as needed for pain lasting 1-5. She will get oxycodone 10 mg as needed every 6 hourly for pain more than 5-10 She also get injections of morphine 2 mg IM if the pain is very severe. Lidocaine patch and also start physical therapy consult she takes in the home she takes Neurontin 300 mg 3 times a day will restart those medications. She is a perfect candidate for DVT prophylaxis. Visit type - Emergency Visit Emergency Visit: Yes ED Registration Date: 10/16/19 Care time: The patient presented to the Emergency Department on the above date and was hospitalized for further evaluation of their emergent condition. - New Patient This patient is new to me today: Yes Date on this admission: 10/16/19 - Critical Care Critical Care patient: No
[2019-10-16] MEDS: BACLOFEN 10 MG TABLET (FP) PO SCH (09:40)
--- NOTE | 2019-10-16 14:38 | CONSULT ---
Consult - text type - Consultation Consultation Note: NEUROSURGERY CONSULTATION Isa Garcia is a pleasant 44 year old Latin female who has a history of Lumbar decompression 5 years ago at [facility]. Prior to this procedure, she was unable to ambulate and she made a good recovery afterwards. The patient has had intermittent episodes of low back pain and leg pain, particularly on the Left side. She has been treated with an extensive course of conservative management with medications, Physical Therapy, and a variety of injections. Unfortunately, although her bouts of pain are usually self limited, she developed new back pain with radiation to her Right leg approximately 2 weeks ago. She denies any antecedent accident or injury which may have been causative. She is in severe pain and cannot walk which prompted her presentation to the [facility] ED today. She has had multiple prior presentations to this and other Emergency Rooms. She has not had recent axial imaging. CT obtained today does not show clear pathology mandating urgent intervention, however, there are postoperative changes at L5S1 with some suggestion of a focal mass. ?disc? She has grossly full strength which is limited by pain. No sacral anesthesia or bowel/bladder difficulties. Plans are for admission with steroid therapy and MRI Lumbar - GI/DVT prophylaxis - Physical Therapy - Admit for Pain control/steroids/imaging - Consider Pain Management - Will follow
[2019-10-16] MEDS: GABAPENTIN 300 MG CAPSULE PO SCH ×2 (14:55→21:13)
[2019-10-16] MEDS: DEXAMETHASONE SOD PHOSPHATE 4 MG/1 ML VIAL IVPUSH SCH (18:15)
[2019-10-16] MEDS ORDERED: GABAPENTIN 100 MG CAPSULE ONE (21:07)
[2019-10-16] MEDS ORDERED: oxyCODONE HCL 5 MG TABLET ONE (21:07)
[2019-10-16] MEDS: LIDOCAINE PATCH REMOVAL MC SCH (21:13)
[2019-10-16] MEDS: oxyCODONE HCL 5 MG TABLET PO PRN (21:13)
[2019-10-17 00:55] VITALS: BMI 30.6
[2019-10-17] MEDS: DEXAMETHASONE SOD PHOSPHATE 4 MG/1 ML VIAL IVPUSH SCH ×3 (01:23→17:27)
[2019-10-17] MEDS: oxyCODONE HCL 5 MG TABLET PO PRN ×2 (03:00→11:27)
[2019-10-17] MEDS: ACETAMINOPHEN 325 MG TABLET (FP) PO PRN ×2 (04:00→11:28)
[2019-10-17] MEDS: GABAPENTIN 300 MG CAPSULE PO SCH ×3 (07:09→21:14)
[2019-10-17] MEDS: BACLOFEN 10 MG TABLET (FP) PO SCH (11:26)
[2019-10-17] MEDS: ENOXAPARIN NA (PORCINE) 40 MG/0.4 ML DISP.SYRIN SQ SCH (11:26)
--- NOTE | 2019-10-17 12:40 | PN ---
Physical Exam: SUBJECTIVE: Patient seen and examined at the bedside. still having some pain of right leg, reports insomnia and constipation. OBJECTIVE: Patient is a 44 year old female s/p surgery 5 years ago for disc protrusion (no hardware, disc still in place), presents to the ER with mid to low back pain and numbness/tingling into the R lower ext. Pain is described as sharp and shooting, begins in the lower back and radiates into the R lower ext. States she gets many flare ups requiring ER visits and has not had CT or MRI in years. Pt has not followed with spine surgery but regularly sees her pain management doctor. She presents with worsening back pain and right leg pain that is hindering her ability to ambulate. Vital Signs Period Temp Pulse Resp BP Sys/Vergara Pulse Ox Last 24 Hr 98.1 F-98.1 F 88-112 18-20 109-132/64-86 94-100 GENERAL: Awake, alert, and fully oriented, in no acute distress. HEAD: Normal with no signs of trauma. EYES: Pupils equal, round and reactive to light, extraocular movements intact EARS, NOSE, THROAT: Ears normal, nares patent, oropharynx clear without exudates. Moist mucous membranes. NECK: Normal range of motion, supple without lymphadenopathy, JVD, or masses. LUNGS: Breath sounds equal, clear to auscultation bilaterally. No wheezes, and no crackles. No accessory muscle use. HEART: Regular rate and rhythm ABDOMEN: Soft, nontender, not distended, normoactive bowel sounds, MUSCULOSKELETAL: Normal range of motion at all joints. No bony deformities or tenderness. No CVA tenderness. UPPER EXTREMITIES: 2+ pulses, warm, well-perfused. LOWER EXTREMITIES: 2+ pulses, warm, well-perfused. No calf tenderness. No peripheral edema. NEUROLOGICAL: Normal speech. Normal gait. PSYCHIATRIC: Cooperative. Good eye contact. Appropriate mood and affect. SKIN: Warm, dry, normal turgor, no rashes or lesions noted, normal capillary refill. Active Medications Generic Name Dose Route Start Last Admin Trade Name Freq PRN Reason Stop Dose Admin Acetaminophen 650 mg 10/16/19 08:13 10/17/19 11:28 Tylenol - PO 650 mg Q6H PRN Administration PAIN LEVEL 1-5 Baclofen 20 mg 10/16/19 10:00 10/17/19 11:26 Lioresal - PO 20 mg DAILY ADIEL Administration Dexamethasone Sodium Phosphate 4 mg 10/16/19 18:00 10/17/19 11:26 Decadron Injection - IVPUSH 4 mg Q8H-IV ADIEL Administration Docusate Sodium 100 mg 10/17/19 14:00 Colace - PO TID ADIEL Enoxaparin Sodium 40 mg 10/17/19 10:00 10/17/19 11:26 Lovenox - SQ 40 mg DAILY ADIEL Administration Gabapentin 300 mg 10/16/19 14:00 10/17/19 07:09 Neurontin - PO 300 mg TID ADIEL Administration Miscellaneous 1 each 10/16/19 22:00 10/16/19 21:13 Lidoderm Patch Removal MC 1 each DAILY@2200 ADIEL Administration Morphine Sulfate 2 mg 10/16/19 07:58 Morphine Sulfate IM Q6H PRN PAIN LEVEL 6-10 Oxycodone HCl 10 mg 10/16/19 08:13 10/17/19 11:27 Roxicodone - PO 10 mg Q6H PRN Administration PAIN LEVEL 1-5 Zolpidem Tartrate 5 mg 10/17/19 12:38 Ambien - PO HS PRN INSOMNIA ASSESSMENT/PLAN: Problem List - Problems (1) Back pain Assessment/Plan: ct scan in the ED of lumbar spine awaiting official read. lumbar spine to be performed today Acute back pain radiating to right arm with a history of spine surgery in the past. on oxycodone, morphine, lidoderm patches and muscle relaxers, on neurontin bowel regimen surgery consulted and following Code(s): M54.9 - DORSALGIA, UNSPECIFIED Qualifiers: Back pain location: low back pain Chronicity: unspecified Back pain laterality: unspecified Sciatica presence: unspecified whether sciatica present Qualified Code(s): M54.5 - Low back pain (2) Lumbar back pain Assessment/Plan: lumbar spine pending physical therapy ordered Code(s): M54.5 - LOW BACK PAIN Qualifiers: Chronicity: acute Back pain laterality: left Sciatica presence: without sciatica Qualified Code(s): M54.5 - Low back pain (3) Radicular low back pain Assessment/Plan: will order PT pain management surgical options with Dr. Quintana Code(s): M54.10 - RADICULOPATHY, SITE UNSPECIFIED (4) DVT prophylaxis Assessment/Plan: lovenox 40 qd Code(s): Z29.9 - ENCOUNTER FOR PROPHYLACTIC MEASURES, UNSPECIFIED Visit type - Emergency Visit Emergency Visit: Yes ED Registration Date: 10/16/19 Care time: The patient presented to the Emergency Department on the above date and was hospitalized for further evaluation of their emergent condition. - New Patient This patient is new to me today: Yes Date on this admission: 10/17/19 - Critical Care Critical Care patient: No - Discharge Referral Referred to [facility] No
[2019-10-17] MEDS ORDERED: MORPHINE SULFATE 2 MG/ML VIAL IVPUSH PRN (12:59)
[2019-10-17] MEDS: POLYETHYLENE GLYCOL 3350 119 GM BTL PO SCH (14:11)
[2019-10-17] MEDS: DOCUSATE SODIUM 100 MG CAPSULE (FP) PO SCH ×2 (14:12→21:14)
[2019-10-17] MEDS: ZOLPIDEM TARTRATE 5 MG TABLET PO PRN (21:14)
[2019-10-17] MEDS: LIDOCAINE PATCH REMOVAL MC SCH (21:14)
[2019-10-18] MEDS: DEXAMETHASONE SOD PHOSPHATE 4 MG/1 ML VIAL IVPUSH SCH ×3 (02:01→18:32)
[2019-10-18] MEDS: GABAPENTIN 300 MG CAPSULE PO SCH ×3 (05:41→21:57)
[2019-10-18] MEDS: DOCUSATE SODIUM 100 MG CAPSULE (FP) PO SCH ×3 (05:41→21:55)
[2019-10-18 08:21] LABS: BASO % 0.1 % (0-2.0); HEMATOCRIT 36.5 % (32.4-45.2); HEMOGLOBIN 11.7 GM/dL (10.7-15.3); LYMPH % 5.5 % (8-40); MCH 26.6 pg (25.7-33.7); MCHC 32.2 g/dl (32.0-36.0); MEAN CELL VOLUME 82.7 fl (80-96); MEAN PLT VOLUME 9.7 fl (7.5-11.1); MONO % 2.9 % (3.8-10.2); NEUT % 91.5 % (42.8-82.8); PLATELET COUNT 301 K/MM3 (134-434); RBC 4.41 M/mm3 (3.60-5.2); RDW 15.6 % (11.6-15.6); WHITE BLOOD COUNT 21.9 K/mm3 (4.0-10.0)
[2019-10-18 08:44] LABS: ALBUMIN 3.2 g/dl (3.4-5.0); BILIRUBIN,TOTAL 0.2 mg/dL (0.2-1); BLOOD UREA NITROGEN 18.4 mg/dL (7-18); CALCIUM 8.5 mg/dL (8.5-10.1); CREATININE 0.8 mg/dL (0.55-1.3); MAGNESIUM 2.7 mg/dL (1.8-2.4); POTASSIUM 4.9 mmol/L (3.5-5.1); TOT PROT 7.1 g/dl (6.4-8.2)
[2019-10-18] MEDS: oxyCODONE HCL 5 MG TABLET PO PRN ×2 (09:30→20:23)
[2019-10-18] MEDS: ENOXAPARIN NA (PORCINE) 40 MG/0.4 ML DISP.SYRIN SQ SCH (09:30)
[2019-10-18] MEDS: BACLOFEN 10 MG TABLET (FP) PO SCH (09:30)
[2019-10-18] MEDS: POLYETHYLENE GLYCOL 3350 119 GM BTL PO SCH (09:32)
[2019-10-18 11:41] LABS: ANISOCYTOSIS 0; MACROCYTOSIS 0; PLATELET ESTIMATE NORMAL
--- NOTE | 2019-10-18 14:12 | PN ---
Physical Exam: SUBJECTIVE: Patient seen and examined at the bedside. reports pain is not fully controlled and medications wear off quickly. OBJECTIVE: lumbar spine with disc bulging on mri for surgery eval will start on oxycontin bid for better pain control with oxycodone for breakthrough d/c morphine blood and urine cultures ordered for elevated wbc; leukocytosis likely secondary to steriods Patient is a 44 year old female s/p surgery 5 years ago for disc protrusion (no hardware, disc still in place), presents to the ER with mid to low back pain and numbness/tingling into the R lower ext. Pain is described as sharp and shooting, begins in the lower back and radiates into the R lower ext. States she gets many flare ups requiring ER visits and has not had CT or MRI in years. Pt has not followed with spine surgery but regularly sees her pain management doctor. She presents with worsening back pain and right leg pain that is hindering her ability to ambulate. Vital Signs Period Temp Pulse Resp BP Sys/Vergara Pulse Ox Last 24 Hr 97.3 F-98.6 F 65-89 17-20 98-133/56-81 98-98 GENERAL: Awake, alert, and fully oriented, in no acute distress. HEAD: Normal with no signs of trauma. EYES: Pupils equal, round and reactive to light, extraocular movements intact EARS, NOSE, THROAT: Ears normal, nares patent, oropharynx clear without exudates. Moist mucous membranes. NECK: Normal range of motion, supple without lymphadenopathy, JVD, or masses. LUNGS: Breath sounds equal, clear to auscultation bilaterally. No wheezes, and no crackles. No accessory muscle use. HEART: Regular rate and rhythm ABDOMEN: Soft, nontender, not distended, normoactive bowel sounds, MUSCULOSKELETAL: Normal range of motion at all joints. No bony deformities or tenderness. No CVA tenderness. UPPER EXTREMITIES: 2+ pulses, warm, well-perfused. LOWER EXTREMITIES: 2+ pulses, warm, well-perfused. No calf tenderness. No peripheral edema. NEUROLOGICAL: Normal speech. Normal gait. PSYCHIATRIC: Cooperative. Good eye contact. Appropriate mood and affect. SKIN: Warm, dry, normal turgor, no rashes or lesions noted, normal capillary refill. Laboratory Results - last 24 hr 10/18/19 10/18/19 07:35 07:35 WBC 21.9 H RBC 4.41 Hgb 11.7 Hct 36.5 MCV 82.7 MCH 26.6 MCHC 32.2 RDW 15.6 Plt Count 301 MPV 9.7 Absolute Neuts (auto) 20.0 H Neutrophils % 91.5 H Neutrophils % (Manual) 90.1 H Band Neutrophils % 1.0 Lymphocytes % 5.5 L D Lymphocytes % (Manual) 2.0 L Monocytes % 2.9 L Monocytes % (Manual) 4 Eosinophils % 0.0 D Eosinophils % (Manual) 0.0 Basophils % 0.1 Basophils % (Manual) 0.0 Myelocytes % (Man) 0 Promyelocytes % (Man) 0 Blast Cells % (Manual) 0 Nucleated RBC % 0 Metamyelocytes 0 Hypochromia 0 Platelet Estimate Normal Polychromasia 0 Poikilocytosis 0 Anisocytosis 0 Microcytosis 0 Macrocytosis 0 Stomatocytes 1+ Sodium 138 Potassium 4.9 Chloride 105 Carbon Dioxide 28 Anion Gap 5 L BUN 18.4 H Creatinine 0.8 Est GFR (CKD-EPI)AfAm 102.47 Est GFR (CKD-EPI)NonAf 88.41 Random Glucose 115 H Calcium 8.5 Magnesium 2.7 H Total Bilirubin 0.2 AST 10 L ALT 18 Alkaline Phosphatase 119 H Total Protein 7.1 Albumin 3.2 L Active Medications Generic Name Dose Route Start Last Admin Trade Name Fortunatoq PRN Reason Stop Dose Admin Acetaminophen 650 mg 10/16/19 08:13 10/17/19 11:28 Tylenol - PO 650 mg Q6H PRN Administration PAIN LEVEL 1-5 Baclofen 20 mg 10/16/19 10:00 10/18/19 09:30 Lioresal - PO 20 mg DAILY ADIEL Administration Dexamethasone Sodium Phosphate 4 mg 10/16/19 18:00 10/18/19 09:30 Decadron Injection - IVPUSH 4 mg Q8H-IV ADIEL Administration Docusate Sodium 100 mg 10/17/19 14:00 10/18/19 05:41 Colace - PO 100 mg TID ADIEL Administration Enoxaparin Sodium 40 mg 10/17/19 10:00 10/18/19 09:30 Lovenox - SQ 40 mg DAILY ADIEL Administration Gabapentin 300 mg 10/16/19 14:00 10/18/19 05:41 Neurontin - PO 300 mg TID ADIEL Administration Miscellaneous 1 each 10/16/19 22:00 10/17/19 21:14 Lidoderm Patch Removal MC 1 each DAILY@2200 ADIEL Administration Morphine Sulfate 2 mg 10/17/19 12:59 10/18/19 12:19 Morphine Sulfate IVPUSH 2 mg Q6H PRN Administration PAIN LEVEL 6-10 Oxycodone HCl 10 mg 10/16/19 08:13 10/18/19 09:30 Roxicodone - PO 10 mg Q6H PRN Administration PAIN LEVEL 1-5 Polyethylene Glycol 17 gm 10/17/19 12:45 10/18/19 09:32 Miralax (For Daily Use) - PO 17 gm DAILY ADIEL Administration Zolpidem Tartrate 5 mg 10/17/19 12:38 10/17/19 21:14 Ambien - PO 5 mg HS PRN Administration INSOMNIA ASSESSMENT/PLAN: Problem List - Problems (1) Back pain Assessment/Plan: lumbar spine mri, no masses, small left paracentral disc protrusion l5-s1, small disc bulge l3-l4, small central protrusion l1-l2 Acute back pain radiating to right arm with a history of spine surgery in the past. pain management with oxycontin bid and oxycodone for breakthrough bowel regimen surgery consulted and following Code(s): M54.9 - DORSALGIA, UNSPECIFIED Qualifiers: Back pain location: low back pain Chronicity: unspecified Back pain laterality: unspecified Sciatica presence: unspecified whether sciatica present Qualified Code(s): M54.5 - Low back pain (2) Lumbar back pain Assessment/Plan: lumbar spine pending physical therapy ordered Code(s): M54.5 - LOW BACK PAIN Qualifiers: Chronicity: acute Back pain laterality: left Sciatica presence: without sciatica Qualified Code(s): M54.5 - Low back pain (3) Radicular low back pain Assessment/Plan: will order PT pain management surgical options with Dr. Quintana Code(s): M54.10 - RADICULOPATHY, SITE UNSPECIFIED (4) Leukocytosis Assessment/Plan: elevated today, blood and urine cultures pending no signs of infection currently Code(s): D72.829 - ELEVATED WHITE BLOOD CELL COUNT, UNSPECIFIED (5) DVT prophylaxis Assessment/Plan: lovenox 40 qd Code(s): Z29.9 - ENCOUNTER FOR PROPHYLACTIC MEASURES, UNSPECIFIED Visit type - Emergency Visit Emergency Visit: Yes ED Registration Date: 10/16/19 Care time: The patient presented to the Emergency Department on the above date and was hospitalized for further evaluation of their emergent condition. - New Patient This patient is new to me today: No - Critical Care Critical Care patient: No - Discharge Referral Referred to [facility] Med P.C.: No
[2019-10-18 14:17] LABS: EPI CELLS 1.7 /HPF (0-5/HPF); HYALINE CASTS 2 /lpf (0-8); URINE APPEARANCE CLEAR; URINE BACTERIA 106.5 /hpf (NEGATIVE); URINE BILIRUBIN NEGATIVE (NEGATIVE); URINE COLOR YELLOW; URINE GLUCOSE (UA) NEGATIVE (NEGATIVE); URINE KETONE NEGATIVE (NEGATIVE); URINE LEUK ESTERASE TRACE (NEGATIVE); URINE NITRITE NEGATIVE (NEGATIVE); URINE PROTEIN NEGATIVE (NEGATIVE); URINE RBC 11 /hpf (0-4); URINE WBC 1 /hpf (0-5)
[2019-10-18] MEDS ORDERED: BISACODYL 10 MG SUPP.RECT RC ONE (14:39)
[2019-10-18] MEDS: ZOLPIDEM TARTRATE 5 MG TABLET PO PRN (21:56)
[2019-10-18] MEDS: oxyCODONE HCL 10 MG SUSTAINED ACTING TABLET PO SCH (21:57)
[2019-10-19] MEDS: DEXAMETHASONE SOD PHOSPHATE 4 MG/1 ML VIAL IVPUSH SCH ×3 (02:13→17:30)
[2019-10-19] MEDS: oxyCODONE HCL 5 MG TABLET PO PRN ×3 (04:48→20:08)
[2019-10-19] MEDS: GABAPENTIN 300 MG CAPSULE PO SCH ×3 (05:02→21:44)
[2019-10-19] MEDS: DOCUSATE SODIUM 100 MG CAPSULE (FP) PO SCH ×3 (05:02→21:44)
[2019-10-19 08:32] LABS: BASO % 0.2 % (0-2.0); HEMATOCRIT 36.8 % (32.4-45.2); HEMOGLOBIN 11.8 GM/dL (10.7-15.3); LYMPH % 8.7 % (8-40); MCH 26.7 pg (25.7-33.7); MCHC 32.2 g/dl (32.0-36.0); MEAN CELL VOLUME 82.9 fl (80-96); MEAN PLT VOLUME 9.6 fl (7.5-11.1); MONO % 7.9 % (3.8-10.2); NEUT % 83.2 % (42.8-82.8); PLATELET COUNT 297 K/MM3 (134-434); RBC 4.44 M/mm3 (3.60-5.2); RDW 15.6 % (11.6-15.6); WHITE BLOOD COUNT 19.5 K/mm3 (4.0-10.0)
[2019-10-19] MEDS: oxyCODONE HCL 10 MG SUSTAINED ACTING TABLET PO SCH (10:23)
[2019-10-19] MEDS: POLYETHYLENE GLYCOL 3350 119 GM BTL PO SCH (10:23)
[2019-10-19] MEDS: BACLOFEN 10 MG TABLET (FP) PO SCH (10:23)
[2019-10-19] MEDS: ENOXAPARIN NA (PORCINE) 40 MG/0.4 ML DISP.SYRIN SQ SCH (10:23)
[2019-10-19] MEDS ORDERED: PT OWN MED DRAWER 7, Y5N ONE (12:09)
--- NOTE | 2019-10-19 13:02 | PN ---
Physical Exam: SUBJECTIVE: Patient seen and examined at the bedside. reports patient is not yet controlled, she wants to seek surgical options for worsening back pain. OBJECTIVE: lumbar spine with disc bulging on mri for surgery eval will increase oxycontin bid for better pain control with oxycodone for breakthrough blood and urine cultures ordered for elevated wbc; leukocytosis likely secondary to steriods Patient is a 44 year old female s/p surgery 5 years ago for disc protrusion (no hardware, disc still in place), presents to the ER with mid to low back pain and numbness/tingling into the R lower ext. Pain is described as sharp and shooting, begins in the lower back and radiates into the R lower ext. States she gets many flare ups requiring ER visits and has not had CT or MRI in years. Pt has not followed with spine surgery but regularly sees her pain management doctor. She presents with worsening back pain and right leg pain that is hindering her ability to ambulate. She is currently seeking surgical options for lumbar spine disease. Vital Signs Period Temp Pulse Resp BP Sys/Vergara Pulse Ox Last 24 Hr 98 F-98.4 F 64-79 20-20 105-130/59-71 98-98 GENERAL: Awake, alert, and fully oriented, in no acute distress. HEAD: Normal with no signs of trauma. EYES: Pupils equal, round and reactive to light, extraocular movements intact EARS, NOSE, THROAT: Ears normal, nares patent, oropharynx clear without exudates. Moist mucous membranes. NECK: Normal range of motion, supple without lymphadenopathy, JVD, or masses. LUNGS: Breath sounds equal, clear to auscultation bilaterally. No wheezes, and no crackles. No accessory muscle use. HEART: Regular rate and rhythm ABDOMEN: Soft, nontender, not distended, normoactive bowel sounds, MUSCULOSKELETAL: Normal range of motion at all joints. No bony deformities or tenderness. No CVA tenderness. UPPER EXTREMITIES: 2+ pulses, warm, well-perfused. LOWER EXTREMITIES: 2+ pulses, warm, well-perfused. No calf tenderness. No peripheral edema. NEUROLOGICAL: Normal speech. Normal gait. PSYCHIATRIC: Cooperative. Good eye contact. Appropriate mood and affect. SKIN: Warm, dry, normal turgor, no rashes or lesions noted, normal capillary refill. Laboratory Results - last 24 hr 10/18/19 10/19/19 13:25 07:45 WBC 19.5 H RBC 4.44 Hgb 11.8 Hct 36.8 MCV 82.9 MCH 26.7 MCHC 32.2 RDW 15.6 Plt Count 297 MPV 9.6 Absolute Neuts (auto) 16.2 H Neutrophils % 83.2 H Lymphocytes % 8.7 D Monocytes % 7.9 D Eosinophils % 0.0 Basophils % 0.2 Nucleated RBC % 0 Urine Color Yellow Urine Appearance Clear Urine pH 6.0 Ur Specific [place] 1.023 Urine Protein Negative Urine Glucose (UA) Negative Urine Ketones Negative Urine Blood 1+ H Urine Nitrite Negative Urine Bilirubin Negative Urine Urobilinogen 1.0 Ur Leukocyte Esterase Trace Urine WBC (Auto) 1 Urine RBC (Auto) 11 Urine Casts (Auto) 2 U Epithel Cells (Auto) 1.7 Urine Bacteria (Auto) 106.5 Active Medications Generic Name Dose Route Start Last Admin Trade Name Freq PRN Reason Stop Dose Admin Acetaminophen 650 mg 10/16/19 08:13 10/17/19 11:28 Tylenol - PO 650 mg Q6H PRN Administration PAIN LEVEL 1-5 Al Hydroxide/Mg Hydroxide 30 ml 10/19/19 11:24 Mylanta Oral Suspension - PO Q6H PRN DYSPEPSIA Baclofen 20 mg 10/16/19 10:00 10/19/19 10:23 Lioresal - PO 20 mg DAILY ADIEL Administration Dexamethasone Sodium Phosphate 4 mg 10/16/19 18:00 10/19/19 10:23 Decadron Injection - IVPUSH 4 mg Q8H-IV ADIEL Administration Docusate Sodium 100 mg 10/17/19 14:00 10/19/19 05:02 Colace - PO 100 mg TID ADIEL Administration Enoxaparin Sodium 40 mg 10/17/19 10:00 10/19/19 10:23 Lovenox - SQ 40 mg DAILY ADIEL Administration Gabapentin 600 mg 10/19/19 12:45 Neurontin - PO TID ADIEL Oxycodone HCl 10 mg 10/16/19 08:13 10/19/19 04:48 Roxicodone - PO 10 mg Q6H PRN Administration PAIN LEVEL 1-5 Oxycodone HCl 20 mg 10/19/19 22:00 Oxycontin - PO BID ADIEL Polyethylene Glycol 17 gm 10/17/19 12:45 10/19/19 10:23 Miralax (For Daily Use) - PO 17 gm DAILY ADIEL Administration Zolpidem Tartrate 5 mg 10/17/19 12:38 10/18/19 21:56 Ambien - PO 5 mg HS PRN Administration INSOMNIA ASSESSMENT/PLAN: Problem List - Problems (1) Back pain Assessment/Plan: lumbar spine mri, no masses, small left paracentral disc protrusion l5-s1, small disc bulge l3-l4, small central protrusion l1-l2 Acute back pain radiating to right leg with a history of spine surgery in the past. pain management with oxycontin bid and oxycodone for breakthrough bowel regimen surgery consulted and following Code(s): M54.9 - DORSALGIA, UNSPECIFIED Qualifiers: Back pain location: low back pain Chronicity: unspecified Back pain laterality: unspecified Sciatica presence: unspecified whether sciatica present Qualified Code(s): M54.5 - Low back pain (2) Lumbar back pain Assessment/Plan: lumbar spine pending physical therapy ordered Code(s): M54.5 - LOW BACK PAIN Qualifiers: Chronicity: acute Back pain laterality: left Sciatica presence: without sciatica Qualified Code(s): M54.5 - Low back pain (3) Radicular low back pain Assessment/Plan: will order PT pain management surgical options with Dr. Quintana Code(s): M54.10 - RADICULOPATHY, SITE UNSPECIFIED (4) Leukocytosis Assessment/Plan: elevated today, blood and urine cultures pending no signs of infection currently Code(s): D72.829 - ELEVATED WHITE BLOOD CELL COUNT, UNSPECIFIED (5) DVT prophylaxis Assessment/Plan: lovenox 40 qd Code(s): Z29.9 - ENCOUNTER FOR PROPHYLACTIC MEASURES, UNSPECIFIED Visit type - Emergency Visit Emergency Visit: Yes ED Registration Date: 10/16/19 Care time: The patient presented to the Emergency Department on the above date and was hospitalized for further evaluation of their emergent condition. - New Patient This patient is new to me today: No - Critical Care Critical Care patient: No - Discharge Referral Referred to [facility] Med P.C.: No
[2019-10-19] MEDS: MAG HYDROX/AL HYDROX/SIMETH 30 ML UNIT-DOSE CUP PO PRN (14:36)
[2019-10-19] MEDS: ACETAMINOPHEN 325 MG TABLET (FP) PO PRN (20:09)
[2019-10-19] MEDS: ZOLPIDEM TARTRATE 5 MG TABLET PO PRN (21:44)
[2019-10-19] MEDS: oxyCODONE HCL 20 MG SUSTAINED ACTING TABLET PO SCH (21:44)
[2019-10-20] MEDS: DEXAMETHASONE SOD PHOSPHATE 4 MG/1 ML VIAL IVPUSH SCH ×3 (02:42→17:39)
[2019-10-20] MEDS: ACETAMINOPHEN 325 MG TABLET (FP) PO PRN ×2 (03:03→23:19)
[2019-10-20] MEDS: oxyCODONE HCL 5 MG TABLET PO PRN ×3 (03:04→23:20)
[2019-10-20] MEDS: DOCUSATE SODIUM 100 MG CAPSULE (FP) PO SCH ×2 (06:18→13:23)
[2019-10-20] MEDS: GABAPENTIN 300 MG CAPSULE PO SCH ×3 (06:18→22:50)
--- NOTE | 2019-10-20 08:47 | PN ---
Progress Note, Physician History of Present Illness: Patient poor historian so history obtained from family at bedside. 77 yo F w/ hx of Parkinson, multiple syncopal episodes it the past presents after a mechanical fall. Patient lost her balance and fell Friday10-16-19. Denies feeling dizziness or losing consciousness. Hip pain started after fall and progressively worsened. Patient remaind bed bound for the past 2 days. Currently lives on a 3rd floor walk up. Denies chest pain, sob, abdominal pain or other comlaints ER course was notable for: CT showing fracture of inferior pubic ramus and R acetabulum - Current Medication List Current Medications: Active Medications Acetaminophen (Tylenol -) 650 mg PO Q6H PRN PRN Reason: PAIN LEVEL 1-5 Last Admin: 10/20/19 03:03 Dose: 650 mg Al Hydroxide/Mg Hydroxide (Mylanta Oral Suspension -) 30 ml PO Q6H PRN PRN Reason: DYSPEPSIA Last Admin: 10/19/19 14:36 Dose: 30 ml Baclofen (Lioresal -) 20 mg PO DAILY [facility] Last Admin: 10/19/19 10:23 Dose: 20 mg Dexamethasone Sodium Phosphate (Decadron Injection -) 4 mg IVPUSH Q8H-IV [facility] Last Admin: 10/20/19 02:42 Dose: 4 mg Docusate Sodium (Colace -) 100 mg PO TID [facility] Last Admin: 10/20/19 06:18 Dose: 100 mg Enoxaparin Sodium (Lovenox -) 40 mg SQ DAILY [facility] Last Admin: 10/19/19 10:23 Dose: 40 mg Gabapentin (Neurontin -) 600 mg PO TID [facility] Last Admin: 10/20/19 06:18 Dose: 600 mg Oxycodone HCl (Roxicodone -) 10 mg PO Q6H PRN PRN Reason: PAIN LEVEL 1-5 Last Admin: 10/20/19 03:04 Dose: 10 mg Oxycodone HCl (Oxycontin -) 20 mg PO BID [facility] Last Admin: 10/19/19 21:44 Dose: 20 mg Polyethylene Glycol (Miralax (For Daily Use) -) 17 gm PO DAILY [facility] Last Admin: 10/19/19 10:23 Dose: 17 gm Zolpidem Tartrate (Ambien -) 5 mg PO HS PRN PRN Reason: INSOMNIA Last Admin: 10/19/19 21:44 Dose: 5 mg - Objective Vital Signs: Vital Signs Temperature 98.2 F 10/20/19 06:06 Pulse Rate 62 10/20/19 06:06 Respiratory Rate 18 10/20/19 06:06 Blood Pressure 107/57 L 10/20/19 06:06 O2 Sat by Pulse Oximetry (%) 98 10/19/19 21:00 Labs: CBC, BMP 10/19/19 07:45 10/18/19 07:35 Problem List - Problems (1) Parkinson disease Code(s): G20 - PARKINSON'S DISEASE (2) Fall Code(s): W19.XXXA - UNSPECIFIED FALL, INITIAL ENCOUNTER (3) Syncope and collapse Code(s): R55 - SYNCOPE AND COLLAPSE (4) Inferior pubic ramus fracture Code(s): S32.599A - OTH FRACTURE OF UNSP PUBIS, INIT ENCNTR FOR CLOSED FRACTURE (5) Right acetabular fracture Code(s): S32.401A - UNSP FRACTURE OF RIGHT ACETABULUM, INIT FOR CLOS FX (6) Prophylactic measure Code(s): Z29.9 - ENCOUNTER FOR PROPHYLACTIC MEASURES, UNSPECIFIED
--- NOTE | 2019-10-20 08:52 | PN ---
Progress Note, Physician Chief Complaint: back pain and radicular pain persists History of Present Illness: lumbar spine with disc bulging on mri for surgery eval will increase oxycontin bid for better pain control with oxycodone for breakthrough blood and urine cultures ordered for elevated wbc; leukocytosis likely secondary to steriods Patient is a 44 year old female s/p surgery 5 years ago for disc protrusion (no hardware, disc still in place), presents to the ER with mid to low back pain and numbness/tingling into the R lower ext. Pain is described as sharp and shooting, begins in the lower back and radiates into the R lower ext. States she gets many flare ups requiring ER visits and has not had CT or MRI in years. Pt has not followed with spine surgery but regularly sees her pain management doctor. She presents with worsening back pain and right leg pain that is hindering her ability to ambulate. She is currently seeking surgical options for lumbar spine disease. - Current Medication List Current Medications: Active Medications Acetaminophen (Tylenol -) 650 mg PO Q6H PRN PRN Reason: PAIN LEVEL 1-5 Last Admin: 10/20/19 03:03 Dose: 650 mg Al Hydroxide/Mg Hydroxide (Mylanta Oral Suspension -) 30 ml PO Q6H PRN PRN Reason: DYSPEPSIA Last Admin: 10/19/19 14:36 Dose: 30 ml Baclofen (Lioresal -) 20 mg PO DAILY [facility] Last Admin: 10/19/19 10:23 Dose: 20 mg Dexamethasone Sodium Phosphate (Decadron Injection -) 4 mg IVPUSH Q8H-IV [facility] Last Admin: 10/20/19 02:42 Dose: 4 mg Docusate Sodium (Colace -) 100 mg PO TID [facility] Last Admin: 10/20/19 06:18 Dose: 100 mg Enoxaparin Sodium (Lovenox -) 40 mg SQ DAILY [facility] Last Admin: 10/19/19 10:23 Dose: 40 mg Gabapentin (Neurontin -) 600 mg PO TID [facility] Last Admin: 10/20/19 06:18 Dose: 600 mg Oxycodone HCl (Roxicodone -) 10 mg PO Q6H PRN PRN Reason: PAIN LEVEL 1-5 Last Admin: 10/20/19 03:04 Dose: 10 mg Oxycodone HCl (Oxycontin -) 20 mg PO BID [facility] Last Admin: 10/19/19 21:44 Dose: 20 mg Polyethylene Glycol (Miralax (For Daily Use) -) 17 gm PO DAILY [facility] Last Admin: 10/19/19 10:23 Dose: 17 gm Zolpidem Tartrate (Ambien -) 5 mg PO HS PRN PRN Reason: INSOMNIA Last Admin: 10/19/19 21:44 Dose: 5 mg - Objective Vital Signs: Vital Signs Temperature 98.2 F 10/20/19 06:06 Pulse Rate 62 10/20/19 06:06 Respiratory Rate 18 10/20/19 06:06 Blood Pressure 107/57 L 10/20/19 06:06 O2 Sat by Pulse Oximetry (%) 98 10/19/19 21:00 Constitutional: Yes: Well Nourished, Moderate Distress (secondary to pain) Eyes: Yes: WNL, Conjunctiva Clear HENT: Yes: WNL, Atraumatic, Normocephalic Neck: Yes: WNL, Supple, Trachea Midline Cardiovascular: Yes: WNL, Regular Rate and Rhythm Respiratory: Yes: WNL, Regular, CTA Bilaterally Gastrointestinal: Yes: WNL, Normal Bowel Sounds ...Rectal Exam: Yes: Deferred Genitourinary: Yes: WNL Breast(s): Yes: WNL Musculoskeletal: Yes: Back Pain, Muscle Weakness Extremities: Yes: WNL Edema: No Peripheral Pulses WNL: Yes Peripheral Pulses: Left Radial: 2+, Right Radial: 2+, Left Doralis Pedis: 2+, Right Dorsalis Pedis: 2+, Left Femoral: 2+, Right Femoral: 2+ Integumentary: Yes: WNL Neurological: Yes: Unsteady Gait, Weakness (radilcuar pain to legs BL) ...Motor Strength: LLE, RLE (weakness secondary to pain) Psychiatric: Yes: WNL Labs: CBC, BMP 10/19/19 07:45 10/18/19 07:35 - ....Imaging Cat Scan: Report Reviewed Problem List - Problems (1) Prophylactic measure Assessment/Plan: FEN regular diet adequate PO intake monitor electrolytes DVT heparin sq Dispo maintain as in patient full code discharge planning Code(s): Z29.9 - ENCOUNTER FOR PROPHYLACTIC MEASURES, UNSPECIFIED (2) Back pain Assessment/Plan: lumbar spine mri, no masses, small left paracentral disc protrusion l5-s1, small disc bulge l3-l4, small central protrusion l1-l2 Acute back pain radiating to right leg with a history of spine surgery in the past. pain management with oxycontin bid and roxicodone for breakthrough bowel regimen will add relistor to prevent opoiod induced constipation c/w decadron surgery consulted and following PT following Code(s): M54.9 - DORSALGIA, UNSPECIFIED Qualifiers: Back pain location: low back pain Chronicity: unspecified Back pain laterality: unspecified Sciatica presence: unspecified whether sciatica present Qualified Code(s): M54.5 - Low back pain (3) Leukocytosis Assessment/Plan: most likely duo to steroids continue to monitor afebrile Code(s): D72.829 - ELEVATED WHITE BLOOD CELL COUNT, UNSPECIFIED (4) Lumbar back pain Assessment/Plan: see above Code(s): M54.5 - LOW BACK PAIN Qualifiers: Chronicity: acute Back pain laterality: left Sciatica presence: without sciatica Qualified Code(s): M54.5 - Low back pain (5) Radicular low back pain Assessment/Plan: c/w gabapentin uptitrating as needed Code(s): M54.10 - RADICULOPATHY, SITE UNSPECIFIED Visit type - Emergency Visit Emergency Visit: Yes ED Registration Date: 10/16/19 Care time: The patient presented to the Emergency Department on the above date and was hospitalized for further evaluation of their emergent condition. - New Patient This patient is new to me today: Yes Date on this admission: 10/21/19 - Critical Care Critical Care patient: No - Discharge Referral Referred to [facility] Med P.C.: No
[2019-10-20] MEDS: POLYETHYLENE GLYCOL 3350 119 GM BTL PO SCH (09:39)
[2019-10-20] MEDS: oxyCODONE HCL 20 MG SUSTAINED ACTING TABLET PO SCH ×2 (09:40→22:30)
[2019-10-20] MEDS: ENOXAPARIN NA (PORCINE) 40 MG/0.4 ML DISP.SYRIN SQ SCH (09:41)
[2019-10-20] MEDS: BACLOFEN 10 MG TABLET (FP) PO SCH (09:41)
[2019-10-20 10:16] LABS: HEMATOCRIT 36.9 % (32.4-45.2); HEMOGLOBIN 11.9 GM/dL (10.7-15.3); LYMPH % 10.6 % (8-40); MCH 26.6 pg (25.7-33.7); MCHC 32.2 g/dl (32.0-36.0); MEAN CELL VOLUME 82.6 fl (80-96); MEAN PLT VOLUME 9.4 fl (7.5-11.1); NEUT % 85.4 % (42.8-82.8); PLATELET COUNT 305 K/MM3 (134-434); RBC 4.47 M/mm3 (3.60-5.2); WHITE BLOOD COUNT 18.5 K/mm3 (4.0-10.0)
[2019-10-20 10:44] LABS: ALBUMIN 3.1 g/dl (3.4-5.0); BILIRUBIN,TOTAL 0.3 mg/dL (0.2-1); BLOOD UREA NITROGEN 21.3 mg/dL (7-18); CALCIUM 8.6 mg/dL (8.5-10.1); CREATININE 0.9 mg/dL (0.55-1.3); MAGNESIUM 2.7 mg/dL (1.8-2.4); POTASSIUM 4.3 mmol/L (3.5-5.1); TOT PROT 6.9 g/dl (6.4-8.2)
[2019-10-20] MEDS: LIDOCAINE PATCH REMOVAL MC SCH (10:45)
[2019-10-20] MEDS: PANTOPRAZOLE 40 MG TABLET PO SCH (14:39)
[2019-10-20] MEDS: LIDOCAINE 5% TOPICAL PATCH TP SCH (14:39)
[2019-10-20] MEDS: Methylnaltrexone Bromide 12 MG/0.6 ML KIT SQ SCH (14:40)
--- NOTE | 2019-10-20 15:42 | EKG ---
Test Reason : Blood Pressure : / mmHG Vent. Rate : 102 BPM Atrial Rate : 102 BPM P-R Int : 140 ms QRS Dur : 078 ms QT Int : 328 ms P-R-T Axes : 000 118 138 degrees QTc Int : 427 ms SINUS TACHYCARDIA LEFT POSTERIOR FASCICULAR BLOCK ABNORMAL ECG WHEN COMPARED WITH ECG OF 08-JUN-2018 14:04, QRS AXIS SHIFTED RIGHT Confirmed by MAYA SMITH MD ([id number]) on 10/20/2019 3:42:12 PM Referred By: Confirmed By:MAYA SMITH MD
[2019-10-20] MEDS: ZOLPIDEM TARTRATE 5 MG TABLET PO PRN (23:12)
[2019-10-20] MEDS: MAG HYDROX/AL HYDROX/SIMETH 30 ML UNIT-DOSE CUP PO PRN (23:20)
[2019-10-21] MEDS: DOCUSATE SODIUM 100 MG CAPSULE (FP) PO SCH ×4 (00:47→21:56)
[2019-10-21] MEDS: DEXAMETHASONE SOD PHOSPHATE 4 MG/1 ML VIAL IVPUSH SCH ×2 (02:29→09:44)
[2019-10-21] MEDS: oxyCODONE HCL 5 MG TABLET PO PRN ×2 (06:30→21:56)
[2019-10-21] MEDS: GABAPENTIN 300 MG CAPSULE PO SCH ×3 (06:30→21:56)
[2019-10-21] MEDS: ACETAMINOPHEN 325 MG TABLET (FP) PO PRN (06:30)
--- NOTE | 2019-10-21 07:24 | PN ---
Progress Note, Physician Chief Complaint: Very tearful. back pain and radicular pain persists, now down both legs. Inability to ambulate History of Present Illness: lumbar spine with disc bulging on mri for surgery eval will increase oxycontin bid for better pain control with oxycodone for breakthrough blood and urine cultures ordered for elevated wbc; leukocytosis likely secondary to steriods Patient is a 44 year old female s/p surgery 5 years ago for disc protrusion (no hardware, disc still in place), presents to the ER with mid to low back pain and numbness/tingling into the R lower ext. Pain is described as sharp and shooting, begins in the lower back and radiates into the R lower ext. States she gets many flare ups requiring ER visits and has not had CT or MRI in years. Pt has not followed with spine surgery but regularly sees her pain management doctor. She presents with worsening back pain and right leg pain that is hindering her ability to ambulate. She is currently seeking surgical options for lumbar spine disease. - Current Medication List Current Medications: Active Medications Acetaminophen (Tylenol -) 650 mg PO Q6H PRN PRN Reason: PAIN LEVEL 1-5 Last Admin: 10/21/19 06:30 Dose: 650 mg Al Hydroxide/Mg Hydroxide (Mylanta Oral Suspension -) 30 ml PO Q6H PRN PRN Reason: DYSPEPSIA Last Admin: 10/20/19 23:20 Dose: 30 ml Baclofen (Lioresal -) 20 mg PO DAILY [facility] Last Admin: 10/20/19 09:41 Dose: 20 mg Dexamethasone Sodium Phosphate (Decadron Injection -) 4 mg IVPUSH Q8H-IV ADIEL Last Admin: 10/21/19 02:29 Dose: 4 mg Docusate Sodium (Colace -) 100 mg PO TID [facility] Last Admin: 10/21/19 06:30 Dose: 100 mg Enoxaparin Sodium (Lovenox -) 40 mg SQ DAILY [facility] Last Admin: 10/20/19 09:41 Dose: 40 mg Gabapentin (Neurontin -) 600 mg PO TID [facility] Last Admin: 10/21/19 06:30 Dose: 600 mg Lidocaine (Lidoderm Patch -) 1 patch TP DAILY [facility] Last Admin: 10/20/19 14:39 Dose: 1 patch Methylnaltrexone [place] (Relistor -) 12 mg SQ DAILY [facility] Last Admin: 10/20/19 14:40 Dose: Not Given Miscellaneous (Lidoderm Patch Removal) 1 each MC DAILY@2200 [facility] Last Admin: 10/20/19 10:45 Dose: 1 each Oxycodone HCl (Oxycontin -) 20 mg PO BID [facility] Last Admin: 10/20/19 22:30 Dose: 20 mg Oxycodone HCl (Roxicodone -) 10 mg PO Q4H PRN PRN Reason: PAIN LEVEL 6-10 Last Admin: 10/21/19 06:30 Dose: 10 mg Pantoprazole Sodium (Protonix -) 40 mg PO DAILY [facility] Last Admin: 10/20/19 14:39 Dose: 40 mg Polyethylene Glycol (Miralax (For Daily Use) -) 17 gm PO DAILY [facility] Last Admin: 10/20/19 09:39 Dose: 17 gm Zolpidem Tartrate (Ambien -) 5 mg PO HS PRN PRN Reason: INSOMNIA Last Admin: 10/20/19 23:12 Dose: 5 mg - Objective Vital Signs: Vital Signs Temperature 98.3 F 10/21/19 06:06 Pulse Rate 64 10/21/19 06:06 Respiratory Rate 20 10/21/19 06:06 Blood Pressure 104/55 L 10/21/19 06:06 O2 Sat by Pulse Oximetry (%) 96 10/20/19 21:00 Additional Findings/Remarks: Constitutional: Yes: Well Nourished, Moderate Distress (secondary to pain) Eyes: Yes: WNL, Conjunctiva Clear HENT: Yes: WNL, Atraumatic, Normocephalic Neck: Yes: WNL, Supple, Trachea Midline Cardiovascular: Yes: WNL, Regular Rate and Rhythm Respiratory: Yes: WNL, Regular, CTA Bilaterally Gastrointestinal: Yes: WNL, Normal Bowel Sounds ...Rectal Exam: Yes: Deferred Genitourinary: Yes: WNL Breast(s): Yes: WNL Musculoskeletal: Yes: Back Pain, Muscle Weakness Extremities: Yes: WNL Edema: No Peripheral Pulses WNL: Yes Peripheral Pulses: Left Radial: 2+, Right Radial: 2+, Left Doralis Pedis: 2+, Right Dorsalis Pedis: 2+, Left Femoral: 2+, Right Femoral: 2+ Integumentary: Yes: WNL Neurological: Yes: Unsteady Gait, Weakness (radilcuar pain to legs BL) ...Motor Strength: LLE, RLE (weakness secondary to pain) Psychiatric: Yes: WNL - ....Imaging Cat Scan: Report Reviewed, Image Reviewed Problem List - Problems (1) Prophylactic measure Assessment/Plan: FEN regular diet adequate PO intake monitor electrolytes DVT heparin sq Dispo maintain as in patient full code discharge planning Code(s): Z29.9 - ENCOUNTER FOR PROPHYLACTIC MEASURES, UNSPECIFIED (2) Back pain Assessment/Plan: lumbar spine mri, no masses, small left paracentral disc protrusion l5-s1, small disc bulge l3-l4, small central protrusion l1-l2 Acute back pain radiating to right leg with a history of spine surgery in the past. pain management with oxycontin bid and roxicodone for breakthrough bowel regimen c/w relistor to prevent opoiod induced constipation surgery consulted and following PT following Discussed with Dr Meza ([facility] emergency department) and following changes will be made: -stop decadron (little effect on pain) -stop oxycontin and taper roxicodone -increased gabapentin -start norytriptyline q hs -plan for transforminal VIVIAN tomorrow pending OR availability -send urine preg test -hold lovenox Code(s): M54.9 - DORSALGIA, UNSPECIFIED Qualifiers: Back pain location: low back pain Chronicity: unspecified Back pain laterality: unspecified Sciatica presence: unspecified whether sciatica present Qualified Code(s): M54.5 - Low back pain (3) Leukocytosis Assessment/Plan: most likely duo to steroids continue to monitor now stopping decadron afebrile Code(s): D72.829 - ELEVATED WHITE BLOOD CELL COUNT, UNSPECIFIED (4) Lumbar back pain Assessment/Plan: see above Code(s): M54.5 - LOW BACK PAIN Qualifiers: Chronicity: acute Back pain laterality: left Sciatica presence: without sciatica Qualified Code(s): M54.5 - Low back pain (5) Radicular low back pain Assessment/Plan: c/w gabapentin at increased dose Code(s): M54.10 - RADICULOPATHY, SITE UNSPECIFIED Visit type - Emergency Visit Emergency Visit: Yes ED Registration Date: 10/16/19 Care time: The patient presented to the Emergency Department on the above date and was hospitalized for further evaluation of their emergent condition. - New Patient This patient is new to me today: No - Critical Care Critical Care patient: No - Discharge Referral Referred to [facility] No
[2019-10-21 07:36] LABS: BASO % 0.2 % (0-2.0); HEMATOCRIT 37.7 % (32.4-45.2); HEMOGLOBIN 12.2 GM/dL (10.7-15.3); LYMPH % 10.7 % (8-40); MCH 26.7 pg (25.7-33.7); MCHC 32.2 g/dl (32.0-36.0); MEAN CELL VOLUME 82.8 fl (80-96); MEAN PLT VOLUME 9.3 fl (7.5-11.1); MONO % 5.6 % (3.8-10.2); NEUT % 83.5 % (42.8-82.8); PLATELET COUNT 294 K/MM3 (134-434); RBC 4.55 M/mm3 (3.60-5.2); RDW 15.6 % (11.6-15.6); WHITE BLOOD COUNT 18.5 K/mm3 (4.0-10.0)
[2019-10-21 08:06] LABS: BILIRUBIN,TOTAL 0.3 mg/dL (0.2-1); CALCIUM 8.5 mg/dL (8.5-10.1); CREATININE 0.8 mg/dL (0.55-1.3); MAGNESIUM 2.8 mg/dL (1.8-2.4); POTASSIUM 4.6 mmol/L (3.5-5.1); TOT PROT 6.6 g/dl (6.4-8.2)
[2019-10-21] MEDS: BACLOFEN 10 MG TABLET (FP) PO SCH (09:44)
[2019-10-21] MEDS: PANTOPRAZOLE 40 MG TABLET PO SCH (09:44)
[2019-10-21] MEDS: Methylnaltrexone Bromide 12 MG/0.6 ML KIT SQ SCH (09:44)
[2019-10-21] MEDS: oxyCODONE HCL 20 MG SUSTAINED ACTING TABLET PO SCH (09:44)
[2019-10-21] MEDS: POLYETHYLENE GLYCOL 3350 119 GM BTL PO SCH (09:44)
[2019-10-21] MEDS: ENOXAPARIN NA (PORCINE) 40 MG/0.4 ML DISP.SYRIN SQ SCH (09:45)
[2019-10-21] MEDS: LIDOCAINE 5% TOPICAL PATCH TP SCH (09:45)
[2019-10-21] MEDS ORDERED: ACETAMINOPHEN 325 MG TABLET (FP) PO SCH (12:00)
[2019-10-21 12:01] LABS: PLATELET ESTIMATE NORMAL
[2019-10-21] MEDS ORDERED: GABAPENTIN 300 MG CAPSULE PO SCH (12:01)
[2019-10-21] MEDS: NAPROXEN 500 MG TABLET PO SCH ×2 (14:00→21:56)
--- NOTE | 2019-10-21 14:17 | PN ---
Progress Note (short form) - Note Progress Note: Patient with continuing pain. MRI does not demonstrate pathology which requires surgical intervention. Patient may benefit from Interventional pain treatment such as epidural steroid injections, transforaminal nerve root block or trial of spinal cord stimulation. - No acute Neurosurgical intervention indicated or planned - Consider Pain Management consultation for evaluation of pain intervention potential
[2019-10-21] MEDS: ACETAMINOPHEN 500 MG TABLET (FP) PO SCH ×2 (17:42→23:04)
[2019-10-21] MEDS ORDERED: ARTIFICIAL TEARS (POLYVINYL ALCOHOL) OPTH DROPS OU PRN (17:44)
[2019-10-21] MEDS ORDERED: PT OWN MED DRAWER 7, Y5N ONE (20:43)
[2019-10-21] MEDS: LIDOCAINE PATCH REMOVAL MC SCH (21:59)
[2019-10-21] MEDS ORDERED: NORTRIPTYLINE HCL 25 MG CAPSULE PO SCH (22:00)
[2019-10-21] MEDS: ZOLPIDEM TARTRATE 5 MG TABLET PO PRN (23:04)
[2019-10-22] MEDS: ACETAMINOPHEN 500 MG TABLET (FP) PO SCH ×2 (07:03→11:34)
[2019-10-22] MEDS: GABAPENTIN 300 MG CAPSULE PO SCH ×2 (07:03→14:08)
[2019-10-22] MEDS: DOCUSATE SODIUM 100 MG CAPSULE (FP) PO SCH ×2 (07:03→14:08)
[2019-10-22 08:25] LABS: EOS % 0.3 % (0-4.5); HEMATOCRIT 37.9 % (32.4-45.2); HEMOGLOBIN 12.3 GM/dL (10.7-15.3); LYMPH % 29.7 % (8-40); MCH 26.9 pg (25.7-33.7); MCHC 32.5 g/dl (32.0-36.0); MEAN CELL VOLUME 82.6 fl (80-96); MONO % 9.3 % (3.8-10.2); NEUT % 60.7 % (42.8-82.8); PLATELET COUNT 298 K/MM3 (134-434); RBC 4.59 M/mm3 (3.60-5.2); RDW 15.3 % (11.6-15.6); WHITE BLOOD COUNT 17.3 K/mm3 (4.0-10.0)
[2019-10-22 08:45] LABS: ALBUMIN 3.4 g/dl (3.4-5.0); BILIRUBIN,TOTAL 0.3 mg/dL (0.2-1); BLOOD UREA NITROGEN 30.6 mg/dL (7-18); CALCIUM 8.5 mg/dL (8.5-10.1); MAGNESIUM 2.8 mg/dL (1.8-2.4); POTASSIUM 4.6 mmol/L (3.5-5.1); TOT PROT 6.7 g/dl (6.4-8.2)
[2019-10-22] MEDS ORDERED: LIDOCAINE HCL 1%, 10 MG/ML (20ML VIAL) ONE (09:23)
[2019-10-22] MEDS ORDERED: BETAMET ACET/BETAMET NA PH 30 MG/5 ML VIAL ONE (09:23)
[2019-10-22] MEDS ORDERED: PROPOFOL 20 ML ONE (09:38)
[2019-10-22] MEDS ORDERED: LIDOCAINE HCL/PF 2% SDV 5ML VIAL ONE ×2 (09:43→10:55)
[2019-10-22] MEDS ORDERED: LIDOCAINE HCL 1%, 10 MG/ML (20ML VIAL) NR ONE ×4 (09:47→09:49)
[2019-10-22] MEDS ORDERED: IOHEXOL 180 MG/1 ML ML IJ ONE ×2 (09:49)
[2019-10-22] MEDS ORDERED: BETAMET ACET/BETAMET NA PH 30 MG/5 ML VIAL IM ONE ×2 (09:49)
[2019-10-22] MEDS ORDERED: ceFAZolin SODIUM 1 GM VIAL ONE (11:01)
[2019-10-22] MEDS ORDERED: SODIUM CHLORIDE 0.9% P/F 10 ML VIAL IJ ONE (11:01)
[2019-10-22] MEDS ORDERED: DEXAMETHASONE SOD PHOSPHATE 4 MG/1 ML VIAL ONE (11:07)
[2019-10-22] MEDS ORDERED: ONDANSETRON 4 MG/2 ML VIAL ONE (11:07)
[2019-10-22] MEDS: LIDOCAINE 5% TOPICAL PATCH TP SCH (11:31)
[2019-10-22] MEDS: NAPROXEN 500 MG TABLET PO SCH (11:32)
[2019-10-22] MEDS: PANTOPRAZOLE 40 MG TABLET PO SCH (11:32)
[2019-10-22] MEDS: BACLOFEN 10 MG TABLET (FP) PO SCH (11:32)
[2019-10-22] MEDS: POLYETHYLENE GLYCOL 3350 119 GM BTL PO SCH (11:33)
[2019-10-22] MEDS: Methylnaltrexone Bromide 12 MG/0.6 ML KIT SQ SCH (11:34)
--- NOTE | 2019-10-22 11:35 | DS ---
Physical Exam: SUBJECTIVE: Patient seen and examined. son at bedside. OBJECTIVE: Patient is a 44 year old female s/p surgery 5 years ago for disc protrusion (no hardware, disc still in place), presents to the ER with mid to low back pain and numbness/tingling into the R lower ext. Pain is described as sharp and shooting, begins in the lower back and radiates into the R lower ext. States she gets many flare ups requiring ER visits and has not had CT or MRI in years. Pt has not followed with spine surgery but regularly sees her pain management doctor. She presents with worsening back pain and right leg pain that is hindering her ability to ambulate. She seen by neurosurgery and no surgical interventions recommended. She is s/p right L4 and L5 transforaminal epidural steroid injection. She will be discharged home today with RW and outpatient follow up with pain management. Vital Signs Period Temp Pulse Resp BP Sys/Vergara Pulse Ox Last 24 Hr 97.5 F-98.8 F 64-85 18-22 94-123/60-71 98-100 PHYSICAL EXAM GENERAL: Awake, alert, and fully oriented, in no acute distress. HEAD: Normal with no signs of trauma. EYES: Pupils equal, round and reactive to light, extraocular movements intact EARS, NOSE, THROAT: Ears normal, nares patent, oropharynx clear without exudates. Moist mucous membranes. NECK: Normal range of motion, supple without lymphadenopathy, JVD, or masses. LUNGS: Breath sounds equal, clear to auscultation bilaterally. No wheezes, and no crackles. No accessory muscle use. HEART: Regular rate and rhythm ABDOMEN: Soft, nontender, not distended, normoactive bowel sounds, MUSCULOSKELETAL: Normal range of motion at all joints. No bony deformities or tenderness. No CVA tenderness. UPPER EXTREMITIES: 2+ pulses, warm, well-perfused. LOWER EXTREMITIES: 2+ pulses, warm, well-perfused. No calf tenderness. No peripheral edema. NEUROLOGICAL: Normal speech. Normal gait. PSYCHIATRIC: Cooperative. Good eye contact. Appropriate mood and affect. SKIN: Warm, dry, normal turgor, no rashes or lesions noted, normal capillary refill. Laboratory Results - last 24 hr 10/21/19 10/21/19 10/22/19 07:10 18:11 07:30 WBC 17.3 H RBC 4.59 Hgb 12.3 Hct 37.9 MCV 82.6 MCH 26.9 MCHC 32.5 RDW 15.3 Plt Count 298 MPV 9.0 Absolute Neuts (auto) 10.5 H Neutrophils % 60.7 D Neutrophils % (Manual) 84.8 H Band Neutrophils % 0.0 Lymphocytes % 29.7 D Lymphocytes % (Manual) 6.1 L D Monocytes % 9.3 Monocytes % (Manual) 6 Eosinophils % 0.3 D Eosinophils % (Manual) 0.0 Basophils % 0.0 Basophils % (Manual) 0.0 Myelocytes % (Man) 0 Promyelocytes % (Man) 0 Blast Cells % (Manual) 0 Nucleated RBC % 0 Metamyelocytes 0 Platelet Estimate Normal Sodium Potassium Chloride Carbon Dioxide Anion Gap BUN Creatinine Est GFR (CKD-EPI)AfAm Est GFR (CKD-EPI)NonAf Random Glucose Calcium Magnesium Total Bilirubin AST ALT Alkaline Phosphatase Total Protein Albumin Urine HCG, Qual Negative 10/22/19 07:30 WBC RBC Hgb Hct MCV MCH MCHC RDW Plt Count MPV Absolute Neuts (auto) Neutrophils % Neutrophils % (Manual) Band Neutrophils % Lymphocytes % Lymphocytes % (Manual) Monocytes % Monocytes % (Manual) Eosinophils % Eosinophils % (Manual) Basophils % Basophils % (Manual) Myelocytes % (Man) Promyelocytes % (Man) Blast Cells % (Manual) Nucleated RBC % Metamyelocytes Platelet Estimate Sodium 135 L Potassium 4.6 Chloride 100 Carbon Dioxide 30 Anion Gap 5 L BUN 30.6 H Creatinine 1.0 Est GFR (CKD-EPI)AfAm 78.24 Est GFR (CKD-EPI)NonAf 67.51 Random Glucose 84 Calcium 8.5 Magnesium 2.8 H Total Bilirubin 0.3 AST 56 H ALT 123 H Alkaline Phosphatase 108 Total Protein 6.7 Albumin 3.4 Urine HCG, Qual HOSPITAL COURSE: Date of Admission:10/16/19 Date of Discharge: 10/22/19 Minutes to complete discharge: 60 Discharge Summary Problems reviewed: Yes Reason For Visit: BACK PAIN Current Active Problems Back pain (Acute) DVT prophylaxis (Acute) Leukocytosis (Acute) Prophylactic measure (Acute) Condition: Fair - Instructions Diet, Activity, Other Instructions: Mrs Garcia: You were admitted for back pain. Continue taking all your pain medications at home with the addition of: Naproxyn 500mg TWICE per day (over the counter) Neurontin 900mg THREE TIMES per day - You were taking 600mg three times per day Nortriptyline HCL 25mg AT BEDTIME once per day (called into your pharmacy) Please take the imaging MRI with you and follow up with your primary care doctor. Thank you for allowing us to care for you. Referrals: Kaleb Sapp MD [Primary Care Provider] - Disposition: VNS/HOME HEALTH CARE - Home Medications Comprehensive Discharge Medication List: Ambulatory Orders Baclofen 20 mg PO DAILY 10/16/19 Lidocaine 5% Patch [Lidoderm Patch -] 1 patch TP DAILY #30 patch 10/16/19 Naproxen [Naprosyn -] 500 mg PO BID tablet 10/22/19 Nortriptyline HCl [Pamelor -] 25 mg PO HS #90 capsule 10/22/19 Problem List - Problems (1) Back pain Assessment/Plan: lumbar spine mri, no masses, small left paracentral disc protrusion l5-s1, small disc bulge l3-l4, small central protrusion l1-l2 Acute back pain radiating to right leg with a history of spine surgery in the past. given relistor to prevent opoiod induced constipation surgery consulted and following PT following s/p steriod injection with Dr Meza continue with - roxicodone -increased gabapentin from 600mg TID to 900mg TID -start norytriptyline q hs -continue all other pain medications Code(s): M54.9 - DORSALGIA, UNSPECIFIED Qualifiers: Back pain location: low back pain Chronicity: unspecified Back pain laterality: unspecified Sciatica presence: unspecified whether sciatica present Qualified Code(s): M54.5 - Low back pain (2) Lumbar back pain Code(s): M54.5 - LOW BACK PAIN Qualifiers: Chronicity: acute Back pain laterality: left Sciatica presence: without sciatica Qualified Code(s): M54.5 - Low back pain (3) Radicular low back pain Code(s): M54.10 - RADICULOPATHY, SITE UNSPECIFIED (4) Leukocytosis Code(s): D72.829 - ELEVATED WHITE BLOOD CELL COUNT, UNSPECIFIED (5) DVT prophylaxis Code(s): Z29.9 - ENCOUNTER FOR PROPHYLACTIC MEASURES, UNSPECIFIED This patient is new to me today: No Emergency Visit: Yes ED Registration Date: 10/16/19 Care time: The patient presented to the Emergency Department on the above date and was hospitalized for further evaluation of their emergent condition. Critical Care patient: No - Discharge Referral Referred to [facility] No
[2019-10-22] MEDS ORDERED: KETOROLAC TROMETHAMINE 30 MG/1 ML VIAL ONE (11:39)
--- NOTE | 2019-10-22 11:47 | PROC ---
Procedure Note Procedure: Pre Procedure Diagnosis: Lumbar Radiculopathy Post Procedure Diagnosis: Lumbar Radiculopathy Anesthesia:MAC Procedure: Right L4 and L5 Transforaminal Epidural Steroid Injection. After the risks and benefits were explained, informed consent was obtained. The patient was then taken to the procedure room and positioned prone on the procedure table. Time out was performed. The region overlying the Right L4 and L5 neural foramens were identified using fluoroscopy. The skin was prepped and draped in the usual sterile fashion. The skin and soft tissues were anesthetized using 1% lidocaine. The neural foramens were identified with the fluoroscopic beam directed in a right oblique direction. 2 22 gauge 3.5 inch spinal needles were then introduced into the appropriate neural foramens using intermittent fluoroscopic guidance using AP, oblique and lateral views as indicated. Needle placement was then confirmed with the injection of Omnipaque 180. Epidural flow was noted and the nerve root was outlined. No vascular uptake was noted. Next, 1.5 cc of betamethasone followed by 0.5 cc of 1% lidocaine was then injected around the Right L4 and L5 spinal nerves. The patient tolerated the procedure well and there were no complications. The patient was taken to the post procedure recovery area in good condition. Vital signs remained stable before, during, and after the procedure. The patient was given oral and written follow-up instructions. The patient was given a follow up appointment with me in the near future. Sami Meza DO
--- NOTE | 2019-10-22 12:14 | CONSULT ---
Consult Consult Specialty:: Interventional Pain Management Reason for Consultation:: Eval Low back and Leg pain for possible intervention - History of Present Illness Chief Complaint: Right Low back and Leg Pain History of Present Illness: The patient endorses 5 years of chronic intermittent right leg and low back pain. Pt states she had microdiscectomy 5 years ago. Pain is rated 10/10. Pain is described as numbness and tingling. Pt trialled PT in the past which alleviated her pain for a short period of time. She does not have a pain management physician and has had multiple hospitalizations over the years for this condition. She has taken opiate medication on and off over the past 5 years. ISTOP checked and there is no recent prescription. Pt has been evaluated by Spine surgery and is not a candidate at this point in time. Pt has MRI and CTof the L spine. Pt started on gabapentin, dexamethasone, oxycodone, and tylenol PRN. The patient is interested in interventional pain management. 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 HEALTH DIETITIAN: Yes: Migraine ...LMP: 06/18/18 - Past Surgical History Past Surgical History: Yes: Appendectomy (laparoscopic) - Alcohol/Substance Use Hx Alcohol Use: No History of Substance Use: reports: None - Smoking History Smoking history: Never smoked Have you smoked in the past 12 months: No - Social History ADL: Independent History of Recent Travel: Yes ([facility]: returned 05/24) Home Medications - Allergies Allergies/Adverse Reactions: Allergies Allergy/AdvReac Type Severity Reaction Status Date / Time No Known Allergies Allergy Verified 10/16/19 01:11 - Home Medications Home Medications: Ambulatory Orders Baclofen 20 mg PO DAILY 10/16/19 Lidocaine 5% Patch [Lidoderm Patch -] 1 patch TP DAILY #30 patch 10/16/19 Naproxen [Naprosyn -] 500 mg PO BID tablet 10/22/19 Naproxen [Naprosyn] 500 mg PO BID #120 tablet 10/22/19 Nortriptyline HCl [Pamelor -] 25 mg PO HS #90 capsule 10/22/19 Review of Systems Findings/Remarks: neg accept for above Denies bowel or bladder incontinence Physical Exam Vital Signs: Vital Signs Temperature 97.5 F L 10/22/19 10:51 Pulse Rate 78 10/22/19 10:51 Respiratory Rate 18 10/22/19 10:51 Blood Pressure 94/60 10/22/19 10:51 O2 Sat by Pulse Oximetry (%) 98 10/22/19 10:51 Constitutional: Yes: Other (PE: General: NAD, uncomfortable Pain Exam: Normal Lumbar active range of motion revealed limitation on flexion, extension and bilateral rotation due to pain. Right Strength Hip flexors: 5 Hip extensors: 5 Quadriceps: 5 Hamstrings: 5 Dorsiflexors: 5 EHL: 5 Plantar flexors: 5 Left Strength Hip flexors: 5 Hip extensors: 5 Quadriceps: 5 Hamstrings: 5 Dorsiflexors: 5 EHL: 5 Plantar flexors: 5 Right Reflex Quads: 2+ Gasroc: 2+ Left Reflex Quads: 2+ Gastroc: 2+ Right Signs SLR: positive Facet Load Test : Positive TTP upper lumbar articular pillars: Positive TTP middle lumbar articular: Positive TTP lower lumbar articular pillars: Positive PSIS tenderness : negative Lavonne finger test: negative GT Bursae Tenderness: negative ITB Tenderness: negative Left Signs SLR: negative Facet Load Test: Positive TTP upper lumbar articular pillars: Positive TTP middle lumbar articular: Positive TTP lower lumbar articular pillars: Positive PSIS tenderness: negative [place] finger test: negative GT Bursae Tenderness: negative ITB Tenderness: negative Lumbar Right Light Touch Normal Lumbar Left Light Touch Lumbar normal) Labs: CBC, BMP 10/22/19 07:30 10/22/19 07:30 Imaging - Results Cat Scan: Report Reviewed, Image Reviewed MRI: Report Reviewed, Image Reviewed Assessment/Plan Assessment: The patients pain is likley secondary to chronic lumbar radiculopathy with an exacerbation possibly caused by a chemical radiculitis due to her L4/L5 disc tear. Recommendations: The patient would benefit from a right L4 and L5 Transforaminal epidural steroid injection. Patient would need to hold prophylactic Lovenox for at least 12 hours prior to the procedure. She may restart 24 hours after the procedure. After procedure pt may use ice packs for muscle soreness. Start Multimodal Pain Management with a goal of decreasing/ weaning opiate medications. Opiate medications PRN not standing. Wean off of Opiates as her pain is primarily neuropathic in nature. If possible recommend patient be weaned off opiates prior to discharge or discharge with a weaning protocol. Increase gabapentin to 900 TID monitor for sedation May increase baclofen or consider switching to a trial of Tizaniding 2mg PRN. Monitor for sedation. Start standing tylenol 1000 mg TID standing Cont Topical Lidoderm patches Consider Discontinuing dexamethosone and starting an oral NSAID ie naproxen 500mg BID Consider starting nortryptilline 25 mg Qhs as a nueropathic pain adjuvant. Continue daily PT. Encourage out of bed to chair as much as possible. Pt would benefit from PT as an Outpatient. After the procedure and once pain is better controlled pt may follow up in my office as an outpatient for continued care. Please call [phone] for an appointment. Thank you for your consult Sami Meza DO
[2019-10-22 14:57] VITALS: BP 120/74; PULSE 107; TEMP 98.3
== END 2019-10-22 15:57 | disposition home or self-care (01) | DRG 347 ==
LOC: JER 00:02 → JERBED 07:33 → J7W 10-17 01:10
PROVIDERS: ADMIT Internal Medicine; ATTEND Nurse Practitioner Family
PROC: 3E0S3BZ Introduction of Anesthetic Agent into Epidural Space, Percutaneous Approach (ICD-10-PCS; 2019-10-22)
PROC: 3E0S33Z Introduction of Anti-inflammatory into Epidural Space, Percutaneous Approach (ICD-10-PCS; principal; 2019-10-22 09:00)
DX: M54.16 Radiculopathy, lumbar region (principal); M54.5 Low back pain; D72.829 Elevated white blood cell count, unspecified; R26.9 Unspecified abnormalities of gait and mobility
CPT/HCPCS: 36415; 72131-TC; 72149-TC; 76000-TC-FY; 80053; 81003; 83735; 84703; 85025; 86850; 86900; 86901; 87040; 87086; 93005; 93010; 97116-GP; 97161-GP; 99285-25; J0475; J1100

== ENCOUNTER 2020-06-30 05:01 | Day surgery (SDC) | payer OTHER ==
[2020-06-28 15:16] VITALS: BMI 31.8
--- NOTE | 2020-06-30 07:52 | HP ---
Admitting History and Physical - Admission Chief Complaint: Low back anf right greater than left leg pain s/p microdiscec hal. History of Present Illness: Pt complains of greater than 5 years chronic low back and leg pain s/po microdiscectomy. 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 ...LMP: 06/13/20 - Past Surgical History Past Surgical History: Yes: Appendectomy (laparoscopic) - Smoking History Smoking history: Never smoked Have you smoked in the past 12 months: No - Alcohol/Substance Use Hx Alcohol Use: No History of Substance Use: reports: None - Social History ADL: Independent [facility] Home Medications - Allergies Allergies/Adverse Reactions: Allergies Allergy/AdvReac Type Severity Reaction Status Date / Time OXYCODONE AdvReac Severe Uncoded 06/30/20 07:08 - Home Medications Home Medications: Ambulatory Orders Gabapentin [Neurontin -] 800 mg PO QID 01/20/20 Review of Systems - Review of Systems Constitutional: reports: No Symptoms Eyes: reports: No Symptoms HENT: reports: No Symptoms Neck: reports: No Symptoms Cardiovascular: reports: No Symptoms Respiratory: reports: No Symptoms Gastrointestinal: reports: No Symptoms Genitourinary: reports: No Symptoms Breasts: reports: No Symptoms Reported Musculoskeletal: reports: Back Pain Integumentary: reports: No Symptoms Neurological: reports: Other (B/L Lower extremity Parasthesias) Endocrine: reports: No Symptoms Hematology/Lymphatic: reports: No Symptoms Psychiatric: reports: No Symptoms Pain Intensity: 10 Physical Examination Vital Signs: Vital Signs Temperature 97.7 F 06/30/20 07:11 Pulse Rate 79 06/30/20 07:11 Respiratory Rate 16 06/30/20 07:11 Blood Pressure 104/74 06/30/20 07:11 O2 Sat by Pulse Oximetry (%) 100 06/30/20 07:11 Imaging - Results MRI: Image Reviewed Assessment/Plan The patients pain is secondary to chronic lumbar radiculopathy s/p microdiscectomy refractory to conservative, interventional, and surgical treatments. I will perform a spinal cord stimulator trial.
[2020-06-30] MEDS ORDERED: LIDOCAINE HCL/PF 1% SDV 5ML VIAL ONE (08:58)
[2020-06-30] MEDS ORDERED: LIDOCAINE HCL 2% (20ML MULTI-DOSE VIAL) ONE (08:59)
[2020-06-30] MEDS ORDERED: LIDOCAINE HCL/PF 2% SDV 5ML VIAL ONE (09:00)
[2020-06-30 12:03] VITALS: BP 132/72; PULSE 81; TEMP 95.9
--- NOTE | 2020-07-04 23:38 | PROC ---
Procedure Note Procedure: Preprocedure Diagnosis: Chronic Pain syndrome Post Procedure Diagnosis: same Anesthesia: MAC Procedure Performed: Fluoroscopic guided spinal cord stimulator trial dual lead placement. I discussed with the patient in detail about the risks, benefits and alternatives to treatment not only limited to infection, headache, numbness, weakness and injury to nerves, spinal cord, blood vessels and muscles. The patient understood, agreed and signed the written consent. The patient was positioned prone on the fluoroscopy table. The patient was prepped and draped in the usual sterile fashion using DuraPrep and a fenestrated drape. Routine vital sign monitors were applied and anesthesia was initiated. The patient remained conversant throughout the procedure. The area to be injected was determined using fluoroscopy. Local anesthetic was given by raising a skin wheal and going down to the hub of a 22-gauge 1.5-inch needle with 1% lidocaine. The 25-gauge 3.5-inch needle was used to anesthetize the L1 lamina with 2% bupivacaine. A 14-gauge Tuohy needle was then advanced to contact the right t12-L1- level. It was walked off in a superior medial direction until it entered the epidural space using loss of resistance technique. The spinal cord stimulator lead was advanced through the Tuohy needle. The lead was driven to the level of T7. Lead position was confirmed both in AP and Lateral views under Fluoroscopy. The same was repeated on the left. The needle were withdrawn leaving the leads in place and were then secured to the patients skin using, dermabond, Stay-Fix adhesive bandages and Tegaderm. The patients back was cleaned. The patient was allowed to fully recover from anesthesia and taken to the recovery room in good position. The procedure was completed without complications and was tolerated well. The patient was monitored after the procedure. Stimulation programming and testing of the device was done in the recovery room by the device office machines sales representative. The patient (or responsible green party) was given postprocedure and discharge instructions to follow at home. The patient was discharged in stable condition. A follow-up appointment was made. Sami Meza DO
== END 2020-06-30 12:20 | disposition home or self-care (01) ==
LOC: JASU-SURG 05:01
PROVIDERS: ATTEND Pain Medicine Pain Medicine
PROC: 00HU3MZ Insertion of Neurostimulator Lead into Spinal Canal, Percutaneous Approach (ICD-10-PCS; principal; 2020-06-30 08:30)
DX: G89.4 Chronic pain syndrome (principal)
CPT/HCPCS: 63650; C1897; 76000-TC-FY; 84703

== ENCOUNTER 2021-07-05 17:26 | Emergency (ER) | payer OTHER ==
[2021-07-05 18:08] VITALS: BP 121/78; PULSE 100; TEMP 97.5; BMI 31.8
[2021-07-05] MEDS ORDERED: KETOROLAC TROMETHAMINE 30 MG/1 ML VIAL IM ONE (18:45)
[2021-07-05] MEDS ORDERED: LIDOCAINE 5% TOPICAL PATCH TP ONE (18:45)
[2021-07-05] MEDS ORDERED: KETOROLAC TROMETHAMINE 30 MG/1 ML VIAL ONE (18:47)
[2021-07-05] MEDS ORDERED: LIDOCAINE 5% TOPICAL PATCH ONE (18:47)
[2021-07-05] MEDS ORDERED: LIDOCAINE PATCH REMOVAL MC SCH (22:00)
== END 2021-07-05 19:50 | disposition home or self-care (01) ==
LOC: JER 17:26
PROC: 3E023GC Introduction of Other Therapeutic Substance into Muscle, Percutaneous Approach (ICD-10-PCS; principal; 2021-07-05)
DX: M62.838 Other muscle spasm (principal)
CPT/HCPCS: 99284-25

== ENCOUNTER 2021-07-27 04:30 | Day surgery (SDC) | payer OTHER ==
[2021-07-25 10:54] VITALS: BMI 35.4
[2021-07-27] MEDS ORDERED: LIDOCAINE HCL/PF 1% SDV 5ML VIAL ONE (07:21)
[2021-07-27] MEDS ORDERED: BUPIVACAINE HCL/PF 0.5% (5MG/ML) 10 ML VIAL ONE (07:21)
[2021-07-27] MEDS ORDERED: LIDOCAINE HCL 1% PRESERVATIVE FREE - 30ML VIAL IJ ONE (10:21)
[2021-07-27] MEDS ORDERED: IOHEXOL 180 MG/1 ML ML IJ ONE ×2 (10:22→10:44)
[2021-07-27] MEDS ORDERED: BUPIVACAINE HCL/PF 0.5% (5MG/ML) 10 ML VIAL IJ ONE ×3 (10:22→10:47)
[2021-07-27] MEDS ORDERED: DEXAMETHASONE SOD PHOSPHATE 10 MG/1 ML VIAL ONE (10:43)
[2021-07-27] MEDS ORDERED: ACETAMINOPHEN 325 MG TABLET (FP) ONE (12:03)
[2021-07-27] MEDS ORDERED: ACETAMINOPHEN 325 MG TABLET (FP) PO ONE (14:00)
[2021-07-27 14:20] VITALS: BP 106/68; PULSE 71; TEMP 98.5
== END 2021-07-27 12:40 | disposition home or self-care (01) ==
LOC: JASU-SURG 04:30
PROVIDERS: ATTEND Pain Medicine Pain Medicine
PROC: 3E0T33Z Introduction of Anti-inflammatory into Peripheral Nerves and Plexi, Percutaneous Approach (ICD-10-PCS; 2021-07-27)
PROC: 3E0T3BZ Introduction of Anesthetic Agent into Peripheral Nerves and Plexi, Percutaneous Approach (ICD-10-PCS; principal; 2021-07-27 09:45)
DX: M47.812 Spondylosis without myelopathy or radiculopathy, cervical region (principal)
CPT/HCPCS: 76000-TC-FY; 81025; J1100

== ENCOUNTER 2021-12-02 14:00 | Emergency (ER) | payer OTHER ==
[2021-12-02 14:22] VITALS: BP 117/60; PULSE 84; TEMP 97.9; BMI 34.5
[2021-12-02] MEDS ORDERED: IBUPROFEN 400 MG TABLET (FP) PO ONE (15:41)
[2021-12-02] MEDS ORDERED: ONDANSETRON 4 MG TABLET PO ONE (15:43)
[2021-12-04 08:06] LABS: SARS-CoV-2 NAA Not Detected (Not Detected)
== END 2021-12-02 17:00 | disposition home or self-care (01) ==
LOC: JER 14:00
DX: R51.9 Headache, unspecified (principal); R53.81 Other malaise; M79.10 Myalgia, unspecified site
CPT/HCPCS: 99283-25; C9803; U0003; U0005

== ENCOUNTER 2022-04-30 04:28 | Day surgery (SDC) | payer OTHER ==
[2022-04-29 13:41] VITALS: BMI 33.6
[2022-04-30] MEDS ORDERED: MIDAZOLAM HCL 2 MG/2 ML SINGLE DOSE VIAL ONE (07:22)
[2022-04-30] MEDS ORDERED: LIDOCAINE HCL/PF 2% SDV 5ML VIAL ONE (07:38)
[2022-04-30] MEDS ORDERED: PROPOFOL 20 ML ONE (08:23)
[2022-04-30] MEDS ORDERED: ceFAZolin SODIUM 1 GM VIAL IVPB ONE (08:30)
[2022-04-30] MEDS ORDERED: LIDOCAINE 1% P/F 10 MG/ML VIAL INF ONE (08:39)
[2022-04-30] MEDS ORDERED: LIDOCAINE HCL/PF 2% SDV 5ML VIAL INF ONE (08:40)
[2022-04-30] MEDS ORDERED: ONDANSETRON 4 MG/2 ML VIAL IVPUSH PRN (10:00)
[2022-04-30] MEDS ORDERED: oxyCODONE HCL 5 MG TABLET PO PRN ×4 (10:00→10:08)
[2022-04-30] MEDS ORDERED: PROMETHAZINE HCL 25 MG/1 ML VIAL IVPUSH PRN (10:00)
[2022-04-30] MEDS ORDERED: FENTANYL CITRATE/PF 50 MCG/ML VIAL ONE (10:02)
[2022-04-30] MEDS ORDERED: ACETAMINOPHEN 1000 MG/100 ML BAG IVPB ONE (10:02)
[2022-04-30 16:10] VITALS: BP 94/55; PULSE 72; TEMP 97.1
== END 2022-04-30 12:20 | disposition home or self-care (01) ==
LOC: JASU-SURG 04:28
PROVIDERS: ATTEND Pain Medicine Pain Medicine
PROC: 01HY3MZ Insertion of Neurostimulator Lead into Peripheral Nerve, Percutaneous Approach (ICD-10-PCS; principal; 2022-04-30 08:00)
DX: M96.1 Postlaminectomy syndrome, not elsewhere classified (principal)
CPT/HCPCS: 63650; C1897; 76000-TC-FY; 81025; 94760

== ENCOUNTER 2023-05-14 23:56 | Emergency (ER) | payer OTHER ==
[2023-05-15 00:02] VITALS: BP 127/85; PULSE 105; RESP 20; TEMP 97.9; BMI 34.2
[2023-05-15] MEDS ORDERED: KETOROLAC TROMETHAMINE 30 MG/1 ML VIAL IM ONE (00:43)
[2023-05-15] MEDS ORDERED: ACETAMINOPHEN 325 MG TABLET (FP) PO ONE (00:43)
[2023-05-15] MEDS ORDERED: ACETAMINOPHEN 325 MG TABLET (FP) ONE (00:50)
[2023-05-15] MEDS ORDERED: KETOROLAC TROMETHAMINE 30 MG/1 ML VIAL ONE (00:51)
== END 2023-05-15 02:11 | disposition home or self-care (01) ==
LOC: JER 23:56
PROC: 3E0233Z Introduction of Anti-inflammatory into Muscle, Percutaneous Approach (ICD-10-PCS; principal; 2023-05-15)
DX: M54.50 Low back pain, unspecified (principal); M25.511 Pain in right shoulder
CPT/HCPCS: 73030-TC-RT-FY; 73502-TC-RT-FY; 99284-25

== ENCOUNTER 2024-05-10 12:50 | Emergency (ER) | payer OTHER ==
[2024-05-10 13:00] VITALS: BP 131/86; PULSE 85; RESP 18; TEMP 97.5; BMI 33.6
[2024-05-10] MEDS ORDERED: METOCLOPRAMIDE HCL INJECTION 10 MG/2 ML VIAL ONE (16:47)
[2024-05-10] MEDS ORDERED: ACETAMINOPHEN INJECTION 100 ML IVPB ONE (16:47)
[2024-05-10] MEDS: ACETAMINOPHEN 1000 MG/100 ML BAG IVPB ONE (17:18)
[2024-05-10] MEDS: METOCLOPRAMIDE HCL INJECTION 10 MG/2 ML VIAL IVPB ONE (17:18)
[2024-05-10] MEDS: SODIUM CHLORIDE 0.9% 500 ML INFUS.BAG IV ONE (17:19)
[2024-05-10 17:46] LABS: BASO % 0.4 % (0-2.0); EOS % 1.7 % (0-4.5); HEMATOCRIT 40.5 % (32.4-45.2); HEMOGLOBIN 12.9 GM/dL (10.7-15.3); LYMPH % 26.2 % (8-40); MCH 25.9 pg (25.7-33.7); MCHC 31.9 g/dl (32.0-36.0); MEAN CELL VOLUME 81.2 fl (80-96); MEAN PLT VOLUME 8.7 fl (7.5-11.1); MONO % 6.3 % (3.8-10.2); NEUT % 65.4 % (42.8-82.8); PLATELET COUNT 289 10^3/uL (134-434); RBC 4.99 M/mm3 (3.60-5.2); RDW 15.5 % (11.6-15.6); WHITE BLOOD COUNT 11.7 K/mm3 (4.0-10.0)
[2024-05-10 17:53] LABS: INR 0.98 (0.83-1.09); PROTHROMBIN TIME (PATIENT) 11.1 SEC (9.7-13.0)
[2024-05-10 17:54] LABS: CHLORIDE 103 mmol/L (98-107); POTASSIUM 4.8 mmol/L (3.5-5.1); SODIUM 138 mmol/L (136-145)
[2024-05-10 17:56] LABS: ACTIVATED PTT 32.5 SECONDS (25.2-36.5)
[2024-05-10 17:57] LABS: ALBUMIN 3.7 g/dl (3.4-5.0); ANION GAP 5 mmol/L (4-13); BLOOD UREA NITROGEN 13.9 mg/dL (7-18); CALCIUM 9.4 mg/dL (8.5-10.1); CO2 30 mmol/L (21-32); GLUCOSE,RANDOM 93 mg/dL (74-106); MAGNESIUM 2.3 mg/dL (1.8-2.4)
[2024-05-10 18:00] LABS: CREATININE 0.9 mg/dL (0.55-1.3); SGOT/AST 30 U/L (15-37)
[2024-05-10 18:02] LABS: BILIRUBIN,TOTAL 0.4 mg/dL (0.2-1)
[2024-05-10 18:03] LABS: ALK PHOS 109 U/L (45-117)
[2024-05-10 18:09] LABS: SGPT/ALT 30 U/L (13-61)
[2024-05-10] MEDS ORDERED: KETOROLAC TROMETHAMINE 15 MG/ML VIAL ONE (19:00)
[2024-05-10] MEDS: KETOROLAC TROMETHAMINE 15 MG/ML VIAL IVPUSH ONE (19:03)
== END 2024-05-10 19:26 | disposition home or self-care (01) ==
LOC: JER 12:50
PROC: 3E033NZ Introduction of Analgesics, Hypnotics, Sedatives into Peripheral Vein, Percutaneous Approach (ICD-10-PCS; principal; 2024-05-10)
PROC: 3E0333Z Introduction of Anti-inflammatory into Peripheral Vein, Percutaneous Approach (ICD-10-PCS; 2024-05-10)
PROC: 3E033GC Introduction of Other Therapeutic Substance into Peripheral Vein, Percutaneous Approach (ICD-10-PCS; 2024-05-10)
DX: U07.1 COVID-19 (principal); M79.10 Myalgia, unspecified site; R50.9 Fever, unspecified; R51.9 Headache, unspecified; R11.2 Nausea with vomiting, unspecified; R19.7 Diarrhea, unspecified; R42 Dizziness and giddiness
CPT/HCPCS: 0241U-QW; 36415; 71046-TC-FY; 80053; 82550; 83735; 84484; 84703; 85025; 85610; 85730; 93005; 93010; 96374; 96375; 99285-25; J0131

== ENCOUNTER 2025-01-04 14:21 | Emergency (ER) | payer OTHER ==
[2025-01-04 14:30] VITALS: BP 122/82; PULSE 64; RESP 18; TEMP 97.6; BMI 36.3
[2025-01-04] MEDS ORDERED: LIDOCAINE 4% PATCH TP ONE (15:45)
[2025-01-04] MEDS ORDERED: METHOCARBAMOL 500 MG TABLET ONE (15:45)
[2025-01-04] MEDS ORDERED: KETOROLAC TROMETHAMINE 30 MG/1 ML VIAL ONE (15:45)
[2025-01-04] MEDS ORDERED: ACETAMINOPHEN 500 MG TABLET (FP) ONE (15:45)
[2025-01-04] MEDS: LIDOCAINE 4% PATCH TP ONE (15:53)
[2025-01-04] MEDS: METHOCARBAMOL 750 MG TAB PO ONE (15:53)
[2025-01-04] MEDS: KETOROLAC TROMETHAMINE 30 MG/1 ML VIAL IM ONE (15:54)
[2025-01-04] MEDS: ACETAMINOPHEN 500 MG TABLET (FP) PO ONE (15:54)
[2025-01-04] MEDS ORDERED: MORPHINE SULFATE 2 MG/ML SYRINGE ONE (17:29)
[2025-01-04] MEDS: morphine CARPU-JECT 2 MG/1 ML DISP.SYRIN IM ONE (17:33)
[2025-01-04] MEDS ORDERED: LIDOCAINE PATCH REMOVAL MC ONE (22:00)
== END 2025-01-04 18:04 | disposition home or self-care (01) ==
LOC: JER 14:21 → JERFT 14:21
PROC: 3E0233Z Introduction of Anti-inflammatory into Muscle, Percutaneous Approach (ICD-10-PCS; principal; 2025-01-04)
PROC: 3E023NZ Introduction of Analgesics, Hypnotics, Sedatives into Muscle, Percutaneous Approach (ICD-10-PCS; 2025-01-04)
DX: M54.50 Low back pain, unspecified (principal)
CPT/HCPCS: 99284-25

== ENCOUNTER 2025-01-25 11:22 | Observation (INO) | payer OTHER ==
[2025-01-25] MEDS ORDERED: FAMOTIDINE 20 MG/50 ML IVPB 20 MG/50 ML MG IVPB ONE (12:28)
[2025-01-25] MEDS ORDERED: ONDANSETRON 4 MG/2 ML VIAL ONE (12:28)
[2025-01-25] MEDS ORDERED: ACETAMINOPHEN INJECTION 100 ML ONE (12:28)
[2025-01-25] MEDS: ONDANSETRON 4 MG/2 ML VIAL IVPUSH ONE (12:56)
[2025-01-25] MEDS: LACTATED RINGERS SOLUTION 1000 ML INFUS.BAG IV ONE (12:56)
[2025-01-25] MEDS: FAMOTIDINE 20 MG/50 ML IVPB 20 MG/50 ML MG IVPB ONE (12:56)
[2025-01-25] MEDS: ACETAMINOPHEN 1000 MG/100 ML BAG IVPB ONE ×2 (12:57→22:24)
[2025-01-25 13:12] LABS: BASO % 0.4 % (0-2.0); EOS % 0.6 % (0-4.5); HEMATOCRIT 40.7 % (32.4-45.2); HEMOGLOBIN 13.1 GM/dL (10.7-15.3); LYMPH % 26.9 % (8-40); MCH 26.9 pg (25.7-33.7); MCHC 32.1 g/dl (32.0-36.0); MEAN CELL VOLUME 83.7 fl (80-96); MEAN PLT VOLUME 9.1 fl (7.5-11.1); MONO % 9.7 % (3.8-10.2); NEUT % 62.4 % (42.8-82.8); PLATELET COUNT 337 10^3/uL (134-434); RBC 4.86 M/mm3 (3.60-5.2); RDW 15.4 % (11.6-15.6); WHITE BLOOD COUNT 9.9 K/mm3 (4.0-10.0)
[2025-01-25 13:17] LABS: INR 0.98 (0.83-1.09); PROTHROMBIN TIME (PATIENT) 10.7 SEC (9.7-13.0)
[2025-01-25 13:42] LABS: POTASSIUM 4.2 mmol/L (3.5-5.1)
[2025-01-25 13:47] LABS: BLOOD UREA NITROGEN 15.4 mg/dL (7-18); CALCIUM 9.6 mg/dL (8.5-10.1); MAGNESIUM 2.3 mg/dL (1.8-2.4)
[2025-01-25 13:48] LABS: ALBUMIN 3.6 g/dl (3.4-5.0)
[2025-01-25 13:51] LABS: CREATININE 0.9 mg/dL (0.55-1.3)
[2025-01-25 13:52] LABS: BILIRUBIN,TOTAL 0.6 mg/dL (0.2-1); TOT PROT 8.1 g/dl (6.4-8.2)
[2025-01-25 14:30] LABS: HIV INTERPRETATION NEGATIVE (NEGATIVE)
[2025-01-25] MEDS ORDERED: MAG HYDROX/AL HYDROX/SIMETH 30 ML UNIT-DOSE CUP ONE (14:46)
[2025-01-25] MEDS ORDERED: PANTOPRAZOLE SODIUM 40 MG VIAL ONE (14:47)
[2025-01-25] MEDS: PANTOPRAZOLE SODIUM 40 MG VIAL IVPUSH ONE ×2 (15:00)
[2025-01-25] MEDS: MAG HYDROX/AL HYDROX/SIMETH 30 ML UNIT-DOSE CUP PO ONE (15:00)
[2025-01-25] MEDS ORDERED: METOCLOPRAMIDE HCL INJECTION 10 MG/2 ML VIAL IVPUSH PRN (18:41)
[2025-01-25] MEDS: LACTATED RINGERS SOLUTION 1,000 ML/1,000 ML INFUS.BAG IV SCH (21:10)
[2025-01-25] MEDS: GABAPENTIN 400 MG CAPSULE PO SCH (21:34)
[2025-01-25] MEDS: NORTRIPTYLINE HCL 10 MG CAPSULE PO SCH (23:12)
[2025-01-26] MEDS ORDERED: ACETAMINOPHEN 1000 MG/100 ML BAG IVPB PRN (08:56)
[2025-01-26] MEDS: LISINOPRIL 5 MG TABLET PO SCH (09:36)
[2025-01-26] MEDS: ESCITALOPRAM OXALATE 10 MG TABLET PO SCH (09:36)
[2025-01-26] MEDS: PANTOPRAZOLE 40 MG TABLET PO SCH (09:36)
[2025-01-26] MEDS: HEPARIN NA (PORCINE) 5,000 UNITS/ML 1ML VIAL SQ SCH (22:54)
[2025-01-26] MEDS: POLYETHYLENE GLYCOL (HEALTHYLAX) 3350 17 GM PACKET PO SCH (22:54)
[2025-01-27] MEDS: SODIUM CHLORIDE 1,000 ML IV STA (09:30)
[2025-01-27 09:49] LABS: BASO % 0.7 % (0-2.0); EOS % 0.9 % (0-4.5); HEMATOCRIT 38.5 % (32.4-45.2); HEMOGLOBIN 12.3 GM/dL (10.7-15.3); LYMPH % 29.4 % (8-40); MCH 26.6 pg (25.7-33.7); MCHC 31.9 g/dl (32.0-36.0); MEAN CELL VOLUME 83.5 fl (80-96); MEAN PLT VOLUME 8.9 fl (7.5-11.1); MONO % 7.4 % (3.8-10.2); NEUT % 61.6 % (42.8-82.8); PLATELET COUNT 321 10^3/uL (134-434); RBC 4.61 M/mm3 (3.60-5.2); RDW 15.6 % (11.6-15.6); WHITE BLOOD COUNT 10.3 K/mm3 (4.0-10.0)
[2025-01-27 10:11] LABS: POTASSIUM 4.3 mmol/L (3.5-5.1)
[2025-01-27 10:13] LABS: BLOOD UREA NITROGEN 12.3 mg/dL (7-18); CALCIUM 8.5 mg/dL (8.5-10.1)
[2025-01-27 10:14] LABS: ALBUMIN 3.2 g/dl (3.4-5.0); MAGNESIUM 2.4 mg/dL (1.8-2.4)
[2025-01-27 10:16] LABS: CREATININE 0.9 mg/dL (0.55-1.3)
[2025-01-27 10:18] LABS: BILIRUBIN,TOTAL 0.6 mg/dL (0.2-1)
[2025-01-27 14:18] VITALS: TEMP 98.6
[2025-01-27 15:01] VITALS: BP 102/70; PULSE 103; RESP 19
[2025-01-27 15:14] VITALS: BMI 38.5
[2025-01-27] MEDS: LOPERAMIDE HCL 2 MG CAPSULE PO ONE (15:38)
== END 2025-01-27 17:05 | disposition home or self-care (01) ==
LOC: JER 11:22 → JERBED 16:46 → J8W 18:41
PROVIDERS: ADMIT Internal Medicine; ATTEND Nurse Practitioner Family
PROC: 3E033NZ Introduction of Analgesics, Hypnotics, Sedatives into Peripheral Vein, Percutaneous Approach (ICD-10-PCS; principal; 2025-01-25)
PROC: 3E033GC Introduction of Other Therapeutic Substance into Peripheral Vein, Percutaneous Approach (ICD-10-PCS; 2025-01-25)
PROC: 3E023GC Introduction of Other Therapeutic Substance into Muscle, Percutaneous Approach (ICD-10-PCS; 2025-01-25)
PROC: 3E0337Z Introduction of Electrolytic and Water Balance Substance into Peripheral Vein, Percutaneous Approach (ICD-10-PCS; 2025-01-25)
DX: K29.60 Other gastritis without bleeding (principal); K76.0 Fatty (change of) liver, not elsewhere classified; R10.13 Epigastric pain; M54.9 Dorsalgia, unspecified; K21.9 Gastro-esophageal reflux disease without esophagitis; F41.8 Other specified anxiety disorders; G89.29 Other chronic pain; R10.9 Unspecified abdominal pain; Z86.19 Personal history of other infectious and parasitic diseases
CPT/HCPCS: 36415; 71046-TC-FY; 74177-TC; 76705-TC; 80053; 82977; 83690; 83735; 84484; 85025; 85610; 85730; 86803; 86850; 86900; 86901; 87389; 93005; 93010; 93306-TC; 96361; 96365; 96372; 96375; 96376; 99285-25; G0378; J0131; J1644; Q9967

== ENCOUNTER 2025-01-29 21:15 | Inpatient (IN) | payer OTHER ==
[2025-01-29 21:21] VITALS: BMI 37.0
[2025-01-29] MEDS ORDERED: ACETAMINOPHEN INJECTION 100 ML ONE (22:06)
[2025-01-29] MEDS ORDERED: FAMOTIDINE 20 MG/50 ML IVPB 20 MG/50 ML MG IVPB ONE (22:07)
[2025-01-29 22:11] LABS: BASO % 0.2 % (0-2.0); EOS % 0.1 % (0-4.5); HEMATOCRIT 39.4 % (32.4-45.2); HEMOGLOBIN 13.3 GM/dL (10.7-15.3); LYMPH % 9.8 % (8-40); MCH 27.5 pg (25.7-33.7); MCHC 33.8 g/dl (32.0-36.0); MEAN CELL VOLUME 81.3 fl (80-96); MEAN PLT VOLUME 8.2 fl (7.5-11.1); MONO % 5.7 % (3.8-10.2); NEUT % 84.2 % (42.8-82.8); PLATELET COUNT 297 10^3/uL (134-434); RBC 4.85 M/mm3 (3.60-5.2); RDW 15.5 % (11.6-15.6); WHITE BLOOD COUNT 10.9 K/mm3 (4.0-10.0)
[2025-01-29] MEDS ORDERED: ONDANSETRON 4 MG/2 ML VIAL ONE (22:12)
[2025-01-29] MEDS ORDERED: MORPHINE SULFATE 2 MG/ML SYRINGE ONE (22:12)
[2025-01-29] MEDS: morphine SULFATE 4 MG/ML VIAL IVPUSH ONE (22:16)
[2025-01-29] MEDS: ONDANSETRON 4 MG/2 ML VIAL IVPB ONE (22:16)
[2025-01-29] MEDS: ACETAMINOPHEN 1000 MG/100 ML BAG IVPB ONE (22:18)
[2025-01-29] MEDS: FAMOTIDINE 20 MG/50 ML IVPB 20 MG/50 ML MG IVPB ONE (22:19)
[2025-01-29 22:31] LABS: POTASSIUM 3.8 mmol/L (3.5-5.1)
[2025-01-29 22:34] LABS: ALBUMIN 3.7 g/dl (3.4-5.0); BLOOD UREA NITROGEN 15.9 mg/dL (7-18)
[2025-01-29 22:36] LABS: CREATININE 0.9 mg/dL (0.55-1.3)
[2025-01-29 22:38] LABS: BILIRUBIN,TOTAL 0.7 mg/dL (0.2-1); TOT PROT 7.7 g/dl (6.4-8.2)
[2025-01-29 22:57] LABS: HCG,QUALITATIVE URINE Negative
[2025-01-29 22:59] LABS: EPI CELLS 36 /uL (0-25.1); HYALINE CASTS 0 /uL (0-3.1); URINE APPEARANCE CLEAR; URINE BACTERIA 704 /uL (0-1359); URINE BILIRUBIN NEGATIVE (NEGATIVE); URINE COLOR YELLOW; URINE GLUCOSE (UA) NEGATIVE (NEGATIVE); URINE KETONE 1+ (NEGATIVE); URINE LEUK ESTERASE NEGATIVE (NEGATIVE); URINE NITRITE NEGATIVE (NEGATIVE); URINE PROTEIN 1+ (NEGATIVE); URINE RBC 316 /uL (0-23.9); URINE UROBILINOGEN 0.2 mg/dL (0.2-1.0); URINE WBC 18 /uL (0-25.8)
[2025-01-30] MEDS: SODIUM CHLORIDE 1,000 ML IV STA (00:47)
[2025-01-30] MEDS: SODIUM CHLORIDE 1,000 ML IV SCH (00:47)
[2025-01-30 02:26] VITALS: RESP 18
[2025-01-30] MEDS: HYDROmorphone HCL CARPU-JECT 2 MG/1 ML DISP.SYRIN IVPB ONE (02:26)
[2025-01-30] MEDS ORDERED: HYDROmorphone HCL CARPU-JECT 2 MG/1 ML DISP.SYRIN ONE (02:29)
[2025-01-30] MEDS ORDERED: GABAPENTIN 300 MG CAPSULE PO PRN (03:40)
[2025-01-30] MEDS: ONDANSETRON 4 MG/2 ML VIAL IVPUSH PRN (05:55)
[2025-01-30] MEDS: PANTOPRAZOLE 40 MG TABLET PO SCH (10:24)
[2025-01-30] MEDS: NORTRIPTYLINE HCL 10 MG CAPSULE PO SCH (10:24)
[2025-01-30] MEDS: LISINOPRIL 5 MG TABLET PO SCH (10:25)
[2025-01-30] MEDS: ESCITALOPRAM OXALATE 10 MG TABLET PO SCH (10:25)
[2025-01-30] MEDS: CEFTRIAXONE 1 G/50 ML PREMIX 50 ML IVPB SCH (11:50)
[2025-01-30 12:09] LABS: HEMATOCRIT 36.9 % (32.4-45.2); HEMOGLOBIN 12.1 GM/dL (10.7-15.3); MCHC 32.7 g/dl (32.0-36.0); MEAN CELL VOLUME 82.4 fl (80-96); MEAN PLT VOLUME 8.8 fl (7.5-11.1); PLATELET COUNT 244 10^3/uL (134-434); RBC 4.47 M/mm3 (3.60-5.2); RDW 15.6 % (11.6-15.6); WHITE BLOOD COUNT 6.5 K/mm3 (4.0-10.0)
[2025-01-30 12:27] LABS: POTASSIUM 3.8 mmol/L (3.5-5.1)
[2025-01-30 12:32] LABS: CALCIUM 8.2 mg/dL (8.5-10.1)
[2025-01-30 12:33] LABS: BLOOD UREA NITROGEN 14.4 mg/dL (7-18); MAGNESIUM 2.2 mg/dL (1.8-2.4)
[2025-01-30 12:35] LABS: CREATININE 0.8 mg/dL (0.55-1.3); PHOSPHOROUS 3.4 mg/dL (2.5-4.9)
[2025-01-30 12:36] LABS: BILIRUBIN,TOTAL 0.5 mg/dL (0.2-1); TOT PROT 6.3 g/dl (6.4-8.2)
[2025-01-30] MEDS: ACETAMINOPHEN 1000 MG/100 ML BAG IVPB PRN (21:43)
[2025-01-31] MEDS ORDERED: ACETAMINOPHEN 1000 MG/100 ML BAG IVPB PRN (08:04)
[2025-01-31 09:51] LABS: BASO % 0.3 % (0-2.0); HEMATOCRIT 37.8 % (32.4-45.2); HEMOGLOBIN 12.2 GM/dL (10.7-15.3); LYMPH % 24.8 % (8-40); MCH 26.8 pg (25.7-33.7); MCHC 32.4 g/dl (32.0-36.0); MEAN CELL VOLUME 82.8 fl (80-96); MEAN PLT VOLUME 8.6 fl (7.5-11.1); MONO % 12.8 % (3.8-10.2); NEUT % 60.1 % (42.8-82.8); PLATELET COUNT 260 10^3/uL (134-434); RBC 4.57 M/mm3 (3.60-5.2); RDW 16.1 % (11.6-15.6); WHITE BLOOD COUNT 7.7 K/mm3 (4.0-10.0)
[2025-01-31 10:13] LABS: POTASSIUM 4.1 mmol/L (3.5-5.1)
[2025-01-31 10:16] LABS: BLOOD UREA NITROGEN 11.6 mg/dL (7-18); CALCIUM 8.6 mg/dL (8.5-10.1)
[2025-01-31 10:20] LABS: CREATININE 0.9 mg/dL (0.55-1.3)
[2025-01-31 10:21] LABS: BILIRUBIN,TOTAL 0.7 mg/dL (0.2-1); TOT PROT 6.6 g/dl (6.4-8.2)
[2025-01-31] MEDS ORDERED: GABAPENTIN 400 MG CAPSULE PO PRN (12:25)
[2025-01-31] MEDS: POLYETHYLENE GLYCOL (HEALTHYLAX) 3350 17 GM PACKET PO SCH (21:36)
[2025-02-01 06:39] VITALS: TEMP 97.9
[2025-02-01 09:25] LABS: BASO % 0.4 % (0-2.0); EOS % 1.4 % (0-4.5); HEMATOCRIT 38.9 % (32.4-45.2); HEMOGLOBIN 12.5 GM/dL (10.7-15.3); LYMPH % 29.6 % (8-40); MCH 26.6 pg (25.7-33.7); MCHC 32.1 g/dl (32.0-36.0); MEAN PLT VOLUME 8.4 fl (7.5-11.1); MONO % 10.2 % (3.8-10.2); NEUT % 58.4 % (42.8-82.8); PLATELET COUNT 281 10^3/uL (134-434); RBC 4.69 M/mm3 (3.60-5.2); RDW 15.5 % (11.6-15.6); WHITE BLOOD COUNT 7.5 K/mm3 (4.0-10.0)
[2025-02-01 09:51] LABS: POTASSIUM 4.2 mmol/L (3.5-5.1)
[2025-02-01 09:59] LABS: CALCIUM 8.9 mg/dL (8.5-10.1)
[2025-02-01 10:00] LABS: BLOOD UREA NITROGEN 16.1 mg/dL (7-18); MAGNESIUM 2.1 mg/dL (1.8-2.4)
[2025-02-01 10:03] LABS: CREATININE 0.9 mg/dL (0.55-1.3); PHOSPHOROUS 3.6 mg/dL (2.5-4.9)
[2025-02-01] MEDS: MAG HYDROX/AL HYDROX/SIMETH 30 ML UNIT-DOSE CUP PO SCH ×2 (11:14→11:30)
[2025-02-01] MEDS: TRIMETHOBENZAMIDE HCL 200MG/2ML INJ IM ONE (12:40)
[2025-02-01 14:51] VITALS: BP 106/70; PULSE 87
== END 2025-02-01 17:35 | disposition home or self-care (01) | DRG 249 ==
LOC: JER 21:15 → JERBED 23:29 → J5S 01-30 02:40
PROVIDERS: ADMIT Internal Medicine; ATTEND Internal Medicine
DX: K52.9 Noninfective gastroenteritis and colitis, unspecified (principal); I10 Essential (primary) hypertension; B96.81 Helicobacter pylori [H. pylori] as the cause of diseases classified elsewhere; D72.829 Elevated white blood cell count, unspecified; G43.909 Migraine, unspecified, not intractable, without status migrainosus; K59.00 Constipation, unspecified; N93.9 Abnormal uterine and vaginal bleeding, unspecified; R10.13 Epigastric pain; R11.0 Nausea
CPT/HCPCS: 36415; 80048; 80053; 81003; 83690; 83735; 84100; 84484; 84703; 85025; 85027; 87077; 87086; 93005; 93010; 99285-25; J0131

== ENCOUNTER 2025-02-06 12:04 | Inpatient (IN) | payer OTHER ==
[2025-02-06 12:44] VITALS: BMI 34.9
[2025-02-06] MEDS ORDERED: morphine CARPU-JECT 4 MG/1 ML DISP.SYRIN IVPUSH ONE (13:07)
[2025-02-06] MEDS ORDERED: morphine SULFATE 4 MG/ML VIAL ONE ×2 (13:38→14:52)
[2025-02-06] MEDS: morphine CARPU-JECT 4 MG/1 ML DISP.SYRIN IVPUSH ONE (13:50)
[2025-02-06 14:01] LABS: ABSOLUTE IMMATURE GRANULOCYTES 0.06 x10^3/uL (0.0-0.031); BASOPHILS # 0.06 x10^3/uL (0.01-0.08); EOSINOPHIL % 0.1 % (0.7-5.8); EOSINOPHILS # 0.02 x10^3/uL (0.04-0.36); HEMATOCRIT 40.4 % (34.1-44.9); HEMOGLOBIN 12.4 g/dL (11.2-15.7); MCHC 30.7 g/dl (32.2-35.5); MEAN CELL VOLUME 85.1 fl (79.4-94.8); MEAN PLT VOLUME 10.3 fl (9.4-12.3); MONOCYTE # 1.01 x10^3/uL (0.24-0.86); MONOCYTE % 7.3 % (4.7-12.5); PLATELET COUNT # 323 x10^3/uL (182-369); RDW 14.2 % (12.3-16.6)
[2025-02-06 14:08] LABS: INR 1.11 (0.83-1.09); PROTHROMBIN TIME (PATIENT) 12.1 SEC (9.7-13.0)
[2025-02-06 14:11] LABS: ACTIVATED PTT 30.2 SECONDS (25.2-36.5)
[2025-02-06 14:23] LABS: POTASSIUM 4.1 mmol/L (3.5-5.1)
[2025-02-06 14:25] LABS: CALCIUM 9.1 mg/dL (8.5-10.1)
[2025-02-06 14:26] LABS: ALBUMIN 3.5 g/dl (3.4-5.0); BLOOD UREA NITROGEN 11.1 mg/dL (7-18)
[2025-02-06 14:29] LABS: CREATININE 0.8 mg/dL (0.55-1.3)
[2025-02-06 14:30] LABS: BILIRUBIN,TOTAL 0.4 mg/dL (0.2-1)
[2025-02-06 14:31] LABS: TOT PROT 7.6 g/dl (6.4-8.2)
[2025-02-06] MEDS: morphine SULFATE 4 MG/ML VIAL IVPUSH ONE (14:58)
[2025-02-06] MEDS ORDERED: GABAPENTIN 300 MG CAPSULE ONE (15:49)
[2025-02-06] MEDS ORDERED: DEXAMETHASONE SOD PHOSPHATE 10 MG/1 ML VIAL ONE (15:50)
[2025-02-06] MEDS ORDERED: KETOROLAC TROMETHAMINE 15 MG/ML VIAL ONE (15:50)
[2025-02-06] MEDS ORDERED: HYDROmorphone HCL CARPU-JECT 2 MG/1 ML DISP.SYRIN ONE (15:50)
[2025-02-06] MEDS: DEXAMETHASONE SOD PHOSPHATE 10 MG/1 ML VIAL IVPUSH ONE (16:01)
[2025-02-06] MEDS: KETOROLAC TROMETHAMINE 15 MG/ML VIAL IVPUSH ONE (16:01)
[2025-02-06] MEDS: HYDROmorphone HCl 2 MG/ML VIAL IVPUSH ONE (16:01)
[2025-02-06] MEDS: GABAPENTIN 300 MG CAPSULE PO ONE (16:01)
[2025-02-06] MEDS ORDERED: GABAPENTIN 300 MG CAPSULE PO PRN (17:54)
[2025-02-06] MEDS: oxyCODONE HCL 5 MG TABLET PO PRN (23:03)
[2025-02-07 08:34] LABS: HEMATOCRIT 38.9 % (34.1-44.9); HEMOGLOBIN 12.4 g/dL (11.2-15.7); MCHC 31.9 g/dl (32.2-35.5); MEAN CELL VOLUME 84.4 fl (79.4-94.8); MEAN PLT VOLUME 10.6 fl (9.4-12.3); PLATELET COUNT # 351 x10^3/uL (182-369); RDW 14.1 % (12.3-16.6)
[2025-02-07 09:00] LABS: POTASSIUM 4.4 mmol/L (3.5-5.1)
[2025-02-07] MEDS: FAMOTIDINE 20 MG TABLET PO SCH (09:50)
[2025-02-07] MEDS: NORTRIPTYLINE HCL 10 MG CAPSULE PO SCH (09:50)
[2025-02-07] MEDS: LISINOPRIL 5 MG TABLET PO SCH (09:51)
[2025-02-07] MEDS: ESCITALOPRAM OXALATE 10 MG TABLET PO SCH (09:51)
[2025-02-07] MEDS: PANTOPRAZOLE 40 MG TABLET PO SCH (09:51)
[2025-02-07 10:00] LABS: BLOOD UREA NITROGEN 17.3 mg/dL (7-18); CALCIUM 9.2 mg/dL (8.5-10.1)
[2025-02-07 10:01] LABS: MAGNESIUM 2.6 mg/dL (1.8-2.4)
[2025-02-07 10:03] LABS: CREATININE 0.7 mg/dL (0.55-1.3); PHOSPHOROUS 4.1 mg/dL (2.5-4.9)
[2025-02-07] MEDS: POLYETHYLENE GLYCOL (HEALTHYLAX) 3350 17 GM PACKET PO SCH (11:56)
[2025-02-07] MEDS: GABAPENTIN 400 MG CAPSULE PO PRN (21:34)
[2025-02-08] MEDS: ENOXAPARIN NA (PORCINE) 40 MG/0.4 ML DISP.SYRIN SQ SCH (09:35)
[2025-02-08] MEDS: SODIUM CHLORIDE 500 ML IV STA (11:12)
[2025-02-08] MEDS: ACETAMINOPHEN 500 MG TABLET (FP) PO SCH (13:01)
[2025-02-08] MEDS: methylPREDNISolone 4 MG TABLET PO SCH (16:55)
[2025-02-08 18:36] VITALS: RESP 18
[2025-02-09 09:31] LABS: ABSOLUTE IMMATURE GRANULOCYTES 0.06 x10^3/uL (0.0-0.031); BASOPHILS # 0.04 x10^3/uL (0.01-0.08); EOSINOPHIL % 0.1 % (0.7-5.8); EOSINOPHILS # 0.01 x10^3/uL (0.04-0.36); HEMATOCRIT 39.1 % (34.1-44.9); HEMOGLOBIN 11.9 g/dL (11.2-15.7); MCHC 30.4 g/dl (32.2-35.5); MEAN CELL VOLUME 86.7 fl (79.4-94.8); MONOCYTE # 0.55 x10^3/uL (0.24-0.86); MONOCYTE % 4.8 % (4.7-12.5); RDW 14.2 % (12.3-16.6)
[2025-02-09 09:47] LABS: POTASSIUM 4.3 mmol/L (3.5-5.1)
[2025-02-09 09:51] VITALS: TEMP 97.9
[2025-02-09 09:55] LABS: BLOOD UREA NITROGEN 22.8 mg/dL (7-18)
[2025-02-09 09:58] LABS: CALCIUM 8.6 mg/dL (8.5-10.1)
[2025-02-09 09:59] LABS: BILIRUBIN,TOTAL 0.3 mg/dL (0.2-1); MAGNESIUM 2.1 mg/dL (1.8-2.4); TOT PROT 6.7 g/dl (6.4-8.2)
[2025-02-09 10:01] LABS: PHOSPHOROUS 4.1 mg/dL (2.5-4.9)
[2025-02-09 10:05] LABS: CREATININE 0.8 mg/dL (0.55-1.3)
[2025-02-09 15:30] LABS: MEAN PLT VOLUME 10.6 fl (9.4-12.3); PLATELET COUNT # 313 x10^3/uL (182-369)
[2025-02-09 16:54] VITALS: BP 111/72; PULSE 85
== END 2025-02-09 17:13 | disposition home or self-care (01) | DRG 58 ==
LOC: JER 12:04 → JERBED 14:58 → J5S 16:41
PROVIDERS: ADMIT Internal Medicine
DX: T85.192A Other mechanical complication of implanted electronic neurostimulator of spinal cord electrode (lead), initial encounter (principal); I10 Essential (primary) hypertension; E66.9 Obesity, unspecified; Z68.37 Body mass index [BMI] 37.0-37.9, adult; D72.829 Elevated white blood cell count, unspecified; M54.9 Dorsalgia, unspecified; R20.0 Anesthesia of skin; Y83.8 Other surgical procedures as the cause of abnormal reaction of the patient, or of later complication, without mention of misadventure at the time of the procedure
CPT/HCPCS: 36415; 72128-TC; 72131-TC; 80048; 80053; 83735; 84100; 84702; 85025; 85027; 85610; 85730; 86850; 86900; 86901; 97116-GP; 97161-GP; 99285-25; J1100

== ENCOUNTER 2025-07-31 10:50 | Observation (INO) | payer OTHER ==
[2025-07-31] MEDS ORDERED: LIDOCAINE 5% TOPICAL PATCH ONE (11:58)
[2025-07-31] MEDS ORDERED: KETOROLAC TROMETHAMINE 30 MG/1 ML VIAL ONE (11:58)
[2025-07-31] MEDS: morphine CARPU-JECT 4 MG/1 ML DISP.SYRIN IVPUSH ONE (12:20)
[2025-07-31] MEDS: LIDOCAINE 5% TOPICAL PATCH TP ONE (12:20)
[2025-07-31] MEDS: KETOROLAC TROMETHAMINE 30 MG/1 ML VIAL IVPUSH ONE (12:22)
[2025-07-31 12:26] LABS: ABSOLUTE IMMATURE GRANULOCYTES 0.02 x10^3/uL (0.0-0.031); BASOPHILS # 0.05 x10^3/uL (0.01-0.08); EOSINOPHIL % 2.7 % (0.7-5.8); EOSINOPHILS # 0.21 x10^3/uL (0.04-0.36); MCHC 31.0 g/dl (32.2-35.5); MEAN CELL VOLUME 83.2 fl (79.4-94.8); MEAN PLT VOLUME 10.4 fl (9.4-12.3); MONOCYTE # 0.61 x10^3/uL (0.24-0.86); MONOCYTE % 7.8 % (4.7-12.5); RDW 14.7 % (12.3-16.6)
[2025-07-31 12:44] LABS: GLUCOSE,RANDOM 85.0 mg/dL (74-106)
[2025-07-31 12:45] LABS: TOT PROT 8.1 g/dl (6.4-8.2)
[2025-07-31 12:46] LABS: CO2 28.0 mmol/L (21-32)
[2025-07-31 12:47] LABS: ALK PHOS 140.0 U/L (40-150)
[2025-07-31 12:50] LABS: CREATININE 0.8 mg/dL (0.55-1.3); SGOT/AST 29.0 U/L (5-34); SGPT/ALT 24.0 U/L (0-55)
[2025-07-31] MEDS ORDERED: HYDROmorphone HCL CARPU-JECT 2 MG/1 ML DISP.SYRIN ONE (13:10)
[2025-07-31 13:13] LABS: HCV DIAGNOSTIC IN-HOUSE W/RFLX NON-REACTIVE (NONREACTIVE); HIV INTERPRETATION NEGATIVE (NEGATIVE)
[2025-07-31] MEDS ORDERED: KETAMINE HCL 200 MG/20 ML VIAL ONE (16:25)
[2025-07-31] MEDS: KETAMINE HCL 200 MG/20 ML VIAL IVPUSH ONE (16:34)
[2025-07-31] MEDS ORDERED: ACETAMINOPHEN 1000 MG/100 ML BAG IVPB PRN (18:23)
[2025-07-31] MEDS ORDERED: DOCUSATE SODIUM 100 MG CAPSULE (FP) PO PRN (20:07)
[2025-07-31] MEDS ORDERED: LORATADINE 10 MG TABLET PO PRN (20:07)
[2025-07-31] MEDS: traZODone HCL 50 MG TABLET (FP) PO SCH (23:12)
[2025-07-31] MEDS: GABAPENTIN 400 MG CAPSULE PO PRN (23:12)
[2025-07-31] MEDS: LIDOCAINE PATCH REMOVAL MC SCH (23:14)
[2025-07-31] MEDS: LIDOCAINE PATCH REMOVAL MC ONE (23:15)
[2025-08-01 03:37] VITALS: BMI 35.4
[2025-08-01 09:52] LABS: ABSOLUTE IMMATURE GRANULOCYTES 0.05 x10^3/uL (0.0-0.031); BASOPHILS # 0.04 x10^3/uL (0.01-0.08); EOSINOPHIL % 1.0 % (0.7-5.8); EOSINOPHILS # 0.10 x10^3/uL (0.04-0.36); MCHC 30.1 g/dl (32.2-35.5); MEAN CELL VOLUME 85.5 fl (79.4-94.8); MEAN PLT VOLUME 10.8 fl (9.4-12.3); MONOCYTE # 0.40 x10^3/uL (0.24-0.86); MONOCYTE % 3.9 % (4.7-12.5); RDW 14.8 % (12.3-16.6)
[2025-08-01] MEDS: LISINOPRIL 5 MG TABLET PO SCH (10:37)
[2025-08-01] MEDS: LIDOCAINE 5% TOPICAL PATCH TP SCH (10:37)
[2025-08-01] MEDS: ESCITALOPRAM OXALATE 10 MG TABLET PO SCH (10:37)
[2025-08-01] MEDS: PANTOPRAZOLE 40 MG TABLET PO SCH (10:37)
[2025-08-01] MEDS: ENOXAPARIN NA (PORCINE) 40 MG/0.4 ML DISP.SYRIN SQ SCH (10:38)
[2025-08-01] MEDS: NORTRIPTYLINE HCL 10 MG CAPSULE PO SCH (10:40)
[2025-08-01 11:01] LABS: GLUCOSE,RANDOM 166.0 mg/dL (74-106)
[2025-08-01 11:02] LABS: CO2 26.0 mmol/L (21-32); TOT PROT 7.2 g/dl (6.4-8.2)
[2025-08-01 11:04] LABS: ALK PHOS 113.0 U/L (40-150)
[2025-08-01 11:07] LABS: CREATININE 0.82 mg/dL (0.55-1.3); SGOT/AST 28.0 U/L (5-34); SGPT/ALT 20.0 U/L (0-55)
[2025-08-01 15:46] VITALS: BP 121/68; PULSE 80; RESP 19; TEMP 98
[2025-08-01] MEDS ORDERED: BACLOFEN 10 MG TABLET (FP) PO SCH (22:00)
== END 2025-08-01 17:30 | disposition home or self-care (01) ==
LOC: JER 10:50 → JERBED 16:01 → INTOOBSV 16:01 → J8W 21:28
PROVIDERS: ADMIT Student in an Organized Health Care Education/Training Program; ATTEND Nurse Practitioner Family
PROC: 3E023GC Introduction of Other Therapeutic Substance into Muscle, Percutaneous Approach (ICD-10-PCS; principal; 2025-07-31)
PROC: 3E033NZ Introduction of Analgesics, Hypnotics, Sedatives into Peripheral Vein, Percutaneous Approach (ICD-10-PCS; 2025-07-31)
PROC: 3E0333Z Introduction of Anti-inflammatory into Peripheral Vein, Percutaneous Approach (ICD-10-PCS; 2025-07-31)
DX: Z45.42 Encounter for adjustment and management of neurostimulator (principal); M54.16 Radiculopathy, lumbar region; Z96.82 Presence of neurostimulator; K76.0 Fatty (change of) liver, not elsewhere classified; K59.00 Constipation, unspecified; E66.9 Obesity, unspecified; G89.29 Other chronic pain; Z90.49 Acquired absence of other specified parts of digestive tract
CPT/HCPCS: 36415; 72128-TC; 72131-TC; 74176-TC; 80053; 83735; 84100; 84443; 85025; 85730; 86803; 86850; 86900; 86901; 87389; 96372; 96374; 96375; 96376; 97116-GP; 99285-25; G0378